=== PATIENT | male | born 1985 | race Caucasian/White ===

== ENCOUNTER 2017-07-23 10:15 | Emergency (ER) | payer OTHER ==
[2017-07-23 10:23] VITALS: BP 148/64
--- NOTE | 2017-07-23 11:03 | UC ---
Respiratory Complaint HPI - HPI Summary HPI Summary: Fever, Cough, Sob body aches for 6 days and not resolving--- is 24 weeks patient is not sure if pertussis is up date and did not get a flu vaccine this year - History of Current Complaint Hx Obtained From: Patient Onset/Duration: Sudden Onset, Lasting Days - 6, Still Present Timing: Constant Severity Initially: Mild Severity Currently: Moderate Pain Intensity: 7 Pain Scale Used: 0-10 Numeric Character: Cough: Nonproductive Aggravating Factors: Recumbent Position Alleviating Factors: Nothing Associated Signs And Symptoms: Positive: Dyspnea, Fever, Chills, Pleuritic Chest Pain, URI, Nasal Congestion <Davina Hernandez - Last Filed: 07/23/17 12:29> <Jen Velazquez - Last Filed: 07/23/17 12:40> - History of Current Complaint Chief Complaint: UCGeneralIllness Stated Complaint: FEVER HEADACHE DIZZY COUGH NAUSEA Time Seen by Provider: 07/23/17 10:48 - Allergies/Home Medications Allergies/Adverse Reactions: Allergies Allergy/AdvReac Type Severity Reaction Status Date / Time Clarithromycin [From Biaxin] Allergy Hives Verified 07/23/17 10:19 PMH/Surg Hx/FS Hx/Imm Hx Previously Healthy: Yes - Surgical History Surgical History: Yes Surgery Procedure, Year, and Place: hand - Family History Known Family History: Positive: None - Social History Occupation: Employed Full-time Lives: With Family Alcohol Use: Daily Substance Use Type: None Smoking Status (MU): Never Smoked Tobacco <Davina Hernandez - Last Filed: 07/23/17 12:29> Review of Systems Constitutional: Fever, Chills, Fatigue Skin: Negative Eyes: Negative ENT: Negative Respiratory: Shortness Of Breath, Cough Cardiovascular: Negative Gastrointestinal: Negative Genitourinary: Negative Motor: Negative Neurovascular: Negative Musculoskeletal: Negative, Arthralgia, Myalgia Neurological: Negative Psychological: Negative Is Patient Immunocompromised?: No All Other Systems Reviewed And Are Negative: Yes <Davina Hernandez - Last Filed: 07/23/17 12:29> Physical Exam Triage Information Reviewed: Yes Appearance: Well-Nourished, Ill-Appearing, Pain Distress Vital Signs: Initial Vital Signs Temp 98.3 F 07/23/17 10:20 Pulse 99 07/23/17 10:20 Resp 18 07/23/17 10:20 BP 148/64 07/23/17 10:20 Pulse Ox 95 07/23/17 10:20 Vital Signs Reviewed: Yes Eye Exam: Normal Eyes: Positive: Conjunctiva Clear ENT Exam: Normal ENT: Positive: Normal ENT inspection, Hearing grossly normal, Pharynx normal, Uvula midline. Negative: Nasal congestion, Nasal drainage, TMs normal, TM bulging, Tonsillar swelling, Tonsillar exudate, Trismus, Hoarse voice, Dental tenderness, Sinus tenderness Dental Exam: Normal Neck exam: Normal Neck: Positive: Supple, Nontender, No Lymphadenopathy Respiratory Exam: Normal Respiratory: Positive: Chest non-tender, Lungs clear, Normal breath sounds, No respiratory distress, No accessory muscle use Cardiovascular Exam: Normal Cardiovascular: Positive: RRR, No Murmur, Pulses Normal, Brisk Capillary Refill Musculoskeletal Exam: Normal Musculoskeletal: Positive: Strength Intact, ROM Intact, No Edema Neurological Exam: Normal Neurological: Positive: Alert, Muscle Tone Normal Psychological Exam: Normal Skin Exam: Normal <Davina Hernandez - Last Filed: 07/23/17 12:29> Vital Signs: Initial Vital Signs Temp 98.3 F 07/23/17 10:20 Pulse 99 07/23/17 10:20 Resp 18 07/23/17 10:20 BP 148/64 07/23/17 10:20 Pulse Ox 95 07/23/17 10:20 <Jen Velazquez - Last Filed: 07/23/17 12:40> UC Diagnostic Evaluation - Laboratory O2 Sat by Pulse Oximetry: 95 - Radiology Xray Interpretation: Positive (See Comments) - large right lower lobe pneumonia Radiology Interpretation Completed By: ED Physician, Radiologist <Davina Hernandez - Last Filed: 07/23/17 12:29> Re-Evaluation - Re-Evaluation First Eval Change: Improved - sats improved increased aeration <Davina Hernandez - Last Filed: 07/23/17 12:29> Respiratory Course/Dx - Course Course Of Treatment: levoquin, albuterol, robitussin with codiene, increase fluids, re check pneumonia and blood pressure with Dr. Meneses in 3 days - Differential Dx/Diagnosis Provider Diagnoses: RLL pneumonia, Elevated Blood Pressure with out DX of HYpeertension <Davina Hernandez - Last Filed: 07/23/17 12:29> Discharge <Davina Hernandez - Last Filed: 07/23/17 12:29> <Jen Velazquez - Last Filed: 07/23/17 12:40> - Discharge Plan Condition: Stable Disposition: HOME Prescriptions: Albuterol HFA INHALER* [Ventolin HFA Inhaler*] 2 puff INH Q4H PRN #1 mdi PRN Reason: Cough/Chest tightness/wheeze Guaifenesin-Codeine [Cheratussin AC 100-10 mg/5Ml] 5 ml PO Q4H PRN #90 ml MDD 30 ml PRN Reason: Cough Levofloxacin TAB* [Levaquin TAB*] 500 mg PO DAILY #7 tab Patient Education Materials: How to Use a Metered-Dose Inhaler and a Spacer (ED ), Pneumonia (ED) Forms: *Work Release Referrals: Leroy Meneses MD [Primary Care Provider] - 3 Days Attestation Statement User Type: Provider - I was available for consult. This patient was seen by the PATRICIA. The patient was not presented to, seen by, or examined by me. -Abad <Jen Velazquez - Last Filed: 07/23/17 12:40>
--- NOTE | 2017-07-23 11:38 | RAD ---
INDICATION: Cough and fever. COMPARISON: There are no prior studies available for comparison. TECHNIQUE: Dual-energy PA and lateral views of the chest were obtained. FINDINGS: Cardiac and mediastinal contours appear normal. There is a large infiltrate present in the right lower lobe. No pleural effusion is seen. IMPRESSION: LARGE RIGHT LOWER LOBE INFILTRATE MOST CONSISTENT WITH PNEUMONIA. RECOMMEND FOLLOW-UP CHEST X-RAYS TO RESOLUTION.
[2017-07-23] MEDS ORDERED: Albuterol/Ipratropium NEB.SOL* Albuterol 2.5 MG/Ipratropium 0.5 MG 3 ML INH ONE (11:41)
== END 2017-07-23 12:30 | disposition home or self-care (01) ==
LOC: UCEAST 10:15
DX: J18.9 Pneumonia, unspecified organism (principal); R03.0 Elevated blood-pressure reading, without diagnosis of hypertension
CPT/HCPCS: 71020; 87502; 99212; G0463

== ENCOUNTER 2017-07-24 07:31 | Inpatient (IN) | payer OTHER ==
[2017-07-24] MEDS ORDERED: NS 0.9% 1000 ML* 1,000 ML IV ONE (07:58)
[2017-07-24] MEDS ORDERED: cefTRIAXone(*) 1 GM in NS 0.9% 50 ML* 50 ML IVPB ONE (08:21)
[2017-07-24] MEDS ORDERED: Azithromycin IV(*) 500 MG in NS 0.9% 250 ML* 250 ML IVPB ONE (08:21)
[2017-07-24] MEDS ORDERED: NS 0.9% 1000 ML*IV.FLUID IV ONE (08:21)
[2017-07-24 08:46] LABS: Hematocrit 40 % (42-52); Hemoglobin 14.8 g/dl (14.0-18.0); Mean Corpuscular HGB Conc 37 g/dl (31-36); Mean Corpuscular Hemoglobin 30 pg (27-31); Mean Corpuscular Volume 81 fL (80-94); Mean Platelet Volume 9 um3 (7.4-10.4); Red Blood Count 4.96 10^6/ul (4.0-5.4); Red Cell Distribution Width 13 % (10.5-15)
[2017-07-24 08:48] LABS: Comments Flag Yes
[2017-07-24] MEDS ORDERED: Acetaminophen TAB* 325 MG ONE (08:48)
[2017-07-24 08:49] LABS: Add Diff/Slide Review? Slide Review Added; White Blood Count 2.6 10^3/ul (3.5-10.8)
--- NOTE | 2017-07-24 08:49 | RAD ---
INDICATION: Cough. COMPARISON: Comparison is made with a prior chest x-ray study from July 23, 2017. TECHNIQUE: AP and lateral views of the chest were obtained. FINDINGS: The heart is within normal limits in size. There is a dense infiltrate present in the right lower lobe which has progressed from the prior study. The left lung remains clear. No pleural effusion is seen. IMPRESSION: RIGHT LOWER LOBAR INFILTRATE DEMONSTRATING INTERVAL PROGRESSION.
[2017-07-24 08:51] LABS: ALT 31 U/L (7-52); AST 91 U/L (13-39); Albumin 3.4 g/dL (3.2-5.2); Alkaline Phosphatase 34 U/L (34-104); BUN/Creatinine Ratio 8.1 (8-20); Blood Urea Nitrogen 9 mg/dL (6-24); CO2 Carbon Dioxide 23 mmol/L (22-32); Calcium 8.1 mg/dL (8.6-10.3); Chloride 83 mmol/L (101-111); Creatine Kinase 1455 U/L (10-223); EGFR African American 98.7 (>60); EGFR Non-African American 76.8 (>60); Globulin 2.3 g/dL (2-4); Glucose 127 mg/dL (70-100); Potassium 3.6 mmol/L (3.5-5.0); Total Protein 5.7 g/dL (6.4-8.9)
[2017-07-24] MEDS: Acetaminophen TAB* 325 MG PO ONE ×2 (08:51→14:47)
[2017-07-24 09:00] LABS: Anion Gap 10 mmol/L (2-11); Sodium 116 mmol/L (133-145)
[2017-07-24 09:05] LABS: Alcohol < 10 mg/dL (<10)
[2017-07-24] MEDS ORDERED: Sodium Chloride 3% HYPERTONIC* 500 ML IVPB ONE (09:09)
[2017-07-24 09:20] LABS: TSH (Thyroid Stimulating Horm) 0.44 mcIU/mL (0.34-5.60)
[2017-07-24] MEDS ORDERED: cefTRIAXone(*) 1 GM ADVAN/BAG ONE (09:47)
--- NOTE | 2017-07-24 11:22 | HP ---
ADMISSION HISTORY AND PHYSICAL: DATE OF ADMISSION: 07/24/17 REASON FOR ADMISSION: Pneumonia with confusion. HISTORY OF PRESENT ILLNESS: The patient is a 31-year-old white male who presents to the emergency department with a 3 to 4 day history of nonproductive cough, watery diarrhea, general malaise, and recent onset of confusion. The patient was seen in a [facility] and was diagnosed with pneumonia and started on oral azithromycin and an albuterol inhaler, without improvement. In the emergency department, a chest x-ray revealed a right lower lobe consolidation, a serum sodium of 116, a CPK of 1455, and a white count of 2.6. EKG revealed a sinus tachycardia with a rate of 112 and biphasic T-waves in leads V3 through V6. The patient is otherwise healthy - he denies any other medical problems and was on no meds other than the ones mentioned. ALLERGIES: There are no known drug allergies. FAMILY HISTORY: The patient does have a family history of cardiac disease ( father is status post coronary bypass surgery, mother is status post mitral valve replacement). SOCIAL HISTORY: The patient is and lives with his , who is . He denies alcohol abuse or smoking. 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 REVIEW OF SYSTEMS: Noncontributory. PHYSICAL EXAMINATION GENERAL: The patient is alert and oriented, although he complains of confusion. He is breathing comfortably. VITAL SIGNS: Temp is 103.5, pulse rate 110, blood pressure 140/86, mean pressure 98, O2 saturation is 94% on nasal O2 at 2 L per minute. HEENT: Pupils are mid position and reactive. There is no facial asymmetry. NECK: Supple. LUNGS: Occasional crackles at the right base. There is no wheezing or rhonchi. HEART: Cardiac exam is without murmurs, rubs, or gallops. ABDOMEN: Soft, nontender and not distended. EXTREMITIES: Warm, but not cyanotic or edematous. ADMISSION LABORATORY DATA: Sodium 116, potassium 3.6, chloride 83, CO2 23, BUN 9, creatinine 1.1, glucose 127, bilirubin 1.1, AST 91, CPK 1455. Lactic acid 1.1. Hemoglobin is 14.8, white count is 2.6, hematocrit is 40, platelets are 93. Serum alcohol is less than 10. Chest x-ray and EKG as mentioned. IMPRESSION: The combination of pneumonia, diarrhea, confusion, rhabdomyolysis and hyponatremia is suggestive of legionella infection, although any infectious organism could produce this clinical scenario. MANAGEMENT PLAN: We will initiate antibiotics with ceftriaxone and azithromycin and send the appropriate blood cultures, in addition to urinary antigens for Legionella and pneumococcus. Will try to get serum sodium up to 120 Alexandr/L (because the confusion could represent symptomatic hyponatremia) and then hydrate the patient to protect the kidneys from myoglobinuric renal injury. Prognosis in this case is guarded. The patient's and parents are present at the bedside and they are aware of the diagnosis and the management plan. CRITICAL CARE TIME: 60 minutes. [id number]/[facility] #: [id number] DERECK
[2017-07-24 11:55] LABS: Hematocrit 37 % (42-52); Hemoglobin 13.5 g/dl (14.0-18.0); Mean Corpuscular HGB Conc 37 g/dl (31-36); Mean Corpuscular Hemoglobin 30 pg (27-31); Mean Corpuscular Volume 83 fL (80-94); Mean Platelet Volume 8 um3 (7.4-10.4); Red Blood Count 4.45 10^6/ul (4.0-5.4); Red Cell Distribution Width 12 % (10.5-15); White Blood Count 2.5 10^3/ul (3.5-10.8)
[2017-07-24 11:57] LABS: Comments Flag Yes
[2017-07-24 12:12] LABS: BUN/Creatinine Ratio 7.1 (8-20); Calcium 6.8 mg/dL (8.6-10.3); EGFR African American 96.7 (>60); EGFR Non-African American 75.2 (>60); Potassium 3.4 mmol/L (3.5-5.0)
[2017-07-24 12:17] LABS: Troponin I 0.04 ng/mL (<0.04)
[2017-07-24 13:38] LABS: Erythrocyte Sed Rate 11 mm/Hr (0-14)
[2017-07-24] MEDS: Enoxaparin(*) 40 MG/0.4 ML SYR SUBCUT SCH (14:48)
[2017-07-24] MEDS: Oseltamivir CAP* 75 MG PO SCH ×2 (14:48→20:06)
[2017-07-24] MEDS: predniSONE TAB* 50 MG PO SCH (14:49)
[2017-07-24 15:54] LABS: Urine Bacteria Absent (Absent); Urine Bilirubin Negative (Negative); Urine Glucose Negative (Negative); Urine Nitrite Negative (Negative)
[2017-07-24 16:30] LABS: Benzodiazepine Urine Screen None Detected (None Detect)
[2017-07-24 18:05] LABS: BUN/Creatinine Ratio 8.8 (8-20); Calcium 7.8 mg/dL (8.6-10.3); EGFR African American 108.9 (>60); EGFR Non-African American 84.6 (>60); Potassium 3.8 mmol/L (3.5-5.0)
[2017-07-24] MEDS: NS 0.9% 1000 ML* 1,000 ML IV SCH ×2 (18:40→23:40)
[2017-07-24] MEDS: Acetaminophen TAB* 325 MG PO PRN (20:06)
--- NOTE | 2017-07-24 23:18 | CONS ---
CONSULTATION REPORT: DATE OF CONSULT: 07/24/17 REQUESTING PHYSICIAN: Dr. Otto. CONSULTING SERVICE: Infectious Disease. REASON FOR CONSULT: Pneumonia. IMPRESSION: 1. Community-acquired pneumonia, progressive right lower lobe infiltrate between 07/23/17 and 07/24/17 with acute hypoxemic respiratory failure. The microbiologic differential includes pneumococcus, haemophilus, given the diarrhea, myalgia, hyponatremia, legionella is indeed a consideration. Influenza PCR was negative. A post influenza bacterial pneumonia also possibility. 2. CLARITHROMYCIN allergy, which caused hives in the past. He is tolerating azithromycin here. 3. Leukopenia and thrombocytopenia, likely both sepsis related. 4. Sepsis present on admission. 5. Encephalopathy due to underlying infection was present on admission. RECOMMENDATIONS: 1. Continue ceftriaxone 1 g a day, azithromycin 500 mg daily given his hypoxemic respiratory failure. We will add prednisone 50 mg by mouth daily 5 days. 2. Order sputum culture. He is occasionally bringing some sputum up though, but not consistently, urine legionella and pneumococcal antigens as well as an HIV antibody. HISTORY OF PRESENT ILLNESS: This is a 31-year-old man otherwise healthy, admitted with cough and shortness of breath. He is well until last Monday, developed fevers, chills, sweats, diffuse body aches, anorexia. A couple of days later, he developed a cough, chest pain with coughing, occasionally productive of sputum. No hemoptysis. He had progression of his symptoms, so he went to Urgent Care yesterday. A chest x-ray showed a right lower lobe infiltrate. He was given a dose of Levaquin, but because of progression of symptoms, came back to the emergency room this morning. He is much more short of breath, occasional cough, still having body aches. Blood test showed white blood cell count of 2.6, CK of 1400, sodium 116. He has had a few days of diarrhea, loose stool 3 to 4 times a day in the setting of not eating very much. He had ceftriaxone and azithromycin in the emergency room yesterday. An influenza PCR was sent, is negative. He has not had an infection requiring hospitalization in the past. He has had some travel to a number of hotels including [place] and [facility] in the last couple of weeks. PAST MEDICAL HISTORY: None. MEDICATIONS: 1. Tylenol. 2. Enoxaparin. 3. Normal saline. 4. Tamiflu 75 mg by mouth twice daily. 5. Ceftriaxone 1 g a day. 6. Azithromycin 500 mg IV daily. ALLERGIES: No known drug allergies. FAMILY HISTORY: No recurrent infection, although father has coronary disease and mother has had a mitral valve replacement. They are both alive and otherwise healthy. SOCIAL HISTORY: Lives in [place] with his . 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 He does travel from time to time including [place], [place], [place] in the last few weeks. No sick contacts, no pets at home. REVIEW OF SYSTEMS: A 14-point review of systems was all negative except as noted above in the history of present illness. PHYSICAL EXAM: Vital Signs: Temperature 38, heart rate 90, respiratory rate 25 , blood pressure 130/85, oxygen saturation 96%, FiO2 of 100 at 40 L per minute, saturation was down to 87% on admission. In general, he is awake, not in distress. Neurologic: He is oriented x3. His answers are somewhat slow and feels that his thinking is a little bit slow. Moves all extremities. HEENT: There is no conjunctival hemorrhage. Oropharynx without lesions. Neck: Supple. Lymph Nodes: There is no cervical, supraclavicular, inguinal, axillary, or epitrochlear lymphadenopathy. Heart: Regular rate and rhythm without murmurs , rubs, or gallops. Lungs: There are decreased breath sounds at the right base with egophony. There is no wheeze or rale. Abdomen: Soft, nontender, nondistended. There are bowel sounds present. Skin: There are no rashes or splinter hemorrhages. Musculoskeletal: There is no spine tenderness to palpation or joint synovitis. LABORATORY DATA: White blood cell count 2.5, hemoglobin 13, platelets 80. Creatinine 1.1. Troponin 0.04. CK 1400. Influenza A and B PCR negative. Please see impressions and recommendation as outlined above, which I have discussed with Dr. Otto. Thank you for asking me to see Mr. Whitaker in consultation. [id number]/[facility] #: [id number] DERECK
[2017-07-24] MEDS: traZODone TAB* 100 MG PO PRN (23:37)
[2017-07-25] MEDS: Acetaminophen TAB* 325 MG PO PRN ×4 (00:04→20:21)
[2017-07-25] MEDS: NS 0.9% 1000 ML* 1,000 ML IV SCH ×4 (04:42→22:05)
[2017-07-25 06:34] LABS: Hematocrit 37 % (42-52); Hemoglobin 13.2 g/dl (14.0-18.0); Mean Corpuscular HGB Conc 36 g/dl (31-36); Mean Corpuscular Hemoglobin 30 pg (27-31); Mean Corpuscular Volume 83 fL (80-94); Mean Platelet Volume 8 um3 (7.4-10.4); Red Blood Count 4.47 10^6/ul (4.0-5.4); Red Cell Distribution Width 12 % (10.5-15)
[2017-07-25 06:35] LABS: Comments Flag Yes
[2017-07-25 06:36] LABS: White Blood Count 2.4 10^3/ul (3.5-10.8)
[2017-07-25 06:49] LABS: Albumin 2.8 g/dL (3.2-5.2); Calcium 7.5 mg/dL (8.6-10.3); EGFR African American 96.7 (>60); EGFR Non-African American 75.2 (>60); Globulin 2.1 g/dL (2-4); Potassium 3.7 mmol/L (3.5-5.0); Total Bilirubin 0.6 mg/dL (0.2-1.0); Total Protein 4.9 g/dL (6.4-8.9)
--- NOTE | 2017-07-25 08:28 | RAD ---
INDICATION: Pneumonia. COMPARISON: Comparison is made with prior chest x-ray study from July 24, 2017. TECHNIQUE: A portable view of the chest was obtained. FINDINGS: The heart is within normal limits in size. There is a right basilar infiltrate and small pleural effusion which has progressed from the prior study. IMPRESSION: RIGHT BASILAR INFILTRATE AND PLEURAL EFFUSION DEMONSTRATING SLIGHT PROGRESSION.
[2017-07-25] MEDS ORDERED: Influenza VAC *QUAD* 2017-18* 0.5 ML SYRINGE IM ONE (09:00)
[2017-07-25] MEDS: Enoxaparin(*) 40 MG/0.4 ML SYR SUBCUT SCH (10:39)
[2017-07-25] MEDS: predniSONE TAB* 50 MG PO SCH (10:39)
[2017-07-25] MEDS: Oseltamivir CAP* 75 MG PO SCH (10:39)
[2017-07-25] MEDS: cefTRIAXone VIAL(*) 1,000 MG in NS 0.9% 50 ML* 50 ML IVPB SCH (11:08)
--- NOTE | 2017-07-25 11:29 | PN ---
Progress Note - Progress Note Date of Service: 07/25/17 Note: CRITICAL CARE MEDICINE Date: 07/25/17 Time: 930 SUBJECTIVE: Patient seen and examined. PHYSICAL EXAM: Vital Signs: Reviewed. Neurologic: communicating HEENT: pupils equal. Sclera anicteric. Trachea midline. Cardiovascular: S1 S2, mildly tachy Respiratory: rapid and challow but not labored at rest, dec on R but no appreciated rales. Abdomen: Soft, nt. No r/g/r. Extremities: Warm. Access: piv LABS: Reviewed. IMAGING: Reviewed. CXR evolution of pna post fluid MEDICATIONS: Reviewed. ASSESSMENT: 31 M Severe sepsis on admission sec to CAP - acting like a post flu strept or staph > legionaella. Septic and metabolic encephalopathy on admission - resolving Acute hypoxic resp failure on admission - improving Thrombcytopenia sec to sepsis consumption Leukopenia sec to sepsis consumption Hypovolemic hyponatremia PLAN: Neurologic: stable. Cardiovascular: still with elevated metabolic demand and adequate inc CO to meet demands. Still utilizing IVF. Respiratory: meron with less O2 but remains with high demand, a large V/Q mismatch for his baseline healthy lungs. Salter today but may still need to utilize HFo2 if work remains high as this is still going to take time towards recovery. d/w pt at length. flutter. oob Gastrointestinal: po diet. Renal/Metabolic: stable but keep NS today. balancing metabolics as hypovolemic hyponatremia correcting Infectious Disease: on C3 and azithro. can dc tamiflu. Hematology: f/u recover phase. lovenox Endocrine: pulse of steroids ok Musculoskeletal: oob, myalgias may linger a little, hence ivf. not rhabdo Psych/Social: pt expresses understanding Supportive and preventative care as ordered. Vaccine: flu received here SUP: po VTE prophylaxis: Lovenox Disposition: ICU, potential floor later or tomorrow Code Status: Full Critical Care Time: 25min Cora Whitaker DO
[2017-07-25] MEDS: Azithromycin IV(*) 500 MG in NS 0.9% 250 ML* 250 ML IVPB SCH (13:16)
--- NOTE | 2017-07-25 14:40 | PN ---
Progress Note - Progress Note Date of Service: 07/25/17 SOAP: Subjective: CC: cough HPI: 31 year old man 1 week fever, myalgia, malaise now cough and dyspnea; RLL infiltrate. Today he and his feel he is think more clearly and making more sense, his energy is better, felt great today until he got up to commode. More dyspnea with that maneuver. Cough which is productive of green sputum, no blood. No fever or chills. Objective: [] Vital Signs Temp 38.2 C 07/25/17 11:39 Pulse 88 07/25/17 13:00 Resp 38 07/25/17 13:00 BP 112/67 07/25/17 13:00 Pulse Ox 91 07/25/17 13:00 Intake & Output 07/24/17 07/25/17 07/25/17 18:59 06:59 18:59 Intake Total 1230 3492 120 Output Total 2400 1450 Balance -1170 2042 120 Weight 189 lb 190 lb 8 oz Intake: IV Fluids 550 3092 NS (0.9%) 3092 Oral 680 400 120 Output: Urine 1850 1250 Liquid Stool 550 200 Other: Date of Last Bowel 07.24.2017 Movement # Bowel Movements 4 Estimated Stool Amount Medium Gen:awake no distress HEENT:no thrush, MMM Neck:supple Heart:RRR no murmur Lungs:Decr BS, tubular breath sounds, egophany R base Abd:+BS NTND soft Skin: no rash MSK: no spine tenderness Laboratory Results - last 24 hr 07/24/17 07/24/17 07/24/17 11:35 11:35 14:17 WBC RBC Hgb Hct MCV MCH MCHC RDW Plt Count MPV Sodium 135 D Potassium 3.4 L Chloride 103 Carbon Dioxide 24 Anion Gap 8 BUN 8 Creatinine 1.13 Est GFR ( Amer) 96.7 Est GFR (Non-Af Amer) 75.2 BUN/Creatinine Ratio 7.1 L Glucose 117 H Calcium 6.8 L Total Bilirubin AST ALT Alkaline Phosphatase Lactate Dehydrogenase 764 H Total Creatine Kinase Troponin I 0.04 H* Total Protein Albumin Globulin Albumin/Globulin Ratio Urine Color Urine Appearance Urine pH Ur Specific [place] Urine Protein Urine Ketones Urine Blood Urine Nitrate Urine Bilirubin Urine Urobilinogen Ur Leukocyte Esterase Urine WBC (Auto) Urine RBC (Auto) Urine Bacteria Urine Glucose Urine Opiates Screen Presumptive positive H Ur Barbiturates Screen None detected Ur Phencyclidine Scrn None detected Ur Amphetamines Screen None detected U Benzodiazepines Scrn None detected Urine Cocaine Screen None detected U Cannabinoids Screen Presumptive positive H HIV 1&2 Antibody Nonreactive 07/24/17 07/24/17 07/24/17 14:17 17:30 21:17 WBC RBC Hgb Hct MCV MCH MCHC RDW Plt Count MPV Sodium 127 L D 128 L Potassium 3.8 Chloride 95 L Carbon Dioxide 26 Anion Gap 6 BUN 9 Creatinine 1.02 Est GFR ( Amer) 108.9 Est GFR (Non-Af Amer) 84.6 BUN/Creatinine Ratio 8.8 Glucose 142 H Calcium 7.8 L Total Bilirubin AST ALT Alkaline Phosphatase Lactate Dehydrogenase Total Creatine Kinase 1628 H Troponin I Total Protein Albumin Globulin Albumin/Globulin Ratio Urine Color Straw Urine Appearance Clear Urine pH 6.0 Ur Specific [place] 1.003 L Urine Protein Negative Urine Ketones Negative Urine Blood 1+ H Urine Nitrate Negative Urine Bilirubin Negative Urine Urobilinogen Negative Ur Leukocyte Esterase Negative Urine WBC (Auto) Trace(0-5/hpf) Urine RBC (Auto) Trace(0-2/hpf) Urine Bacteria Absent Urine Glucose Negative Urine Opiates Screen Ur Barbiturates Screen Ur Phencyclidine Scrn Ur Amphetamines Screen U Benzodiazepines Scrn Urine Cocaine Screen U Cannabinoids Screen HIV 1&2 Antibody 07/25/17 07/25/17 07/25/17 03:17 06:00 06:00 WBC 2.4 L RBC 4.47 Hgb 13.2 L Hct 37 L MCV 83 MCH 30 MCHC 36 RDW 12 Plt Count 96 L MPV 8 Sodium 130 L 131 L Potassium 3.7 Chloride 99 L Carbon Dioxide 26 Anion Gap 6 BUN 9 Creatinine 1.13 Est GFR ( Amer) 96.7 Est GFR (Non-Af Amer) 75.2 BUN/Creatinine Ratio 8.0 Glucose 126 H Calcium 7.5 L Total Bilirubin 0.60 AST 84 H ALT 35 Alkaline Phosphatase 27 L Lactate Dehydrogenase Cancelled Total Creatine Kinase 1410 H Troponin I Total Protein 4.9 L Albumin 2.8 L Globulin 2.1 Albumin/Globulin Ratio 1.3 Urine Color Urine Appearance Urine pH Ur Specific [place] Urine Protein Urine Ketones Urine Blood Urine Nitrate Urine Bilirubin Urine Urobilinogen Ur Leukocyte Esterase Urine WBC (Auto) Urine RBC (Auto) Urine Bacteria Urine Glucose Urine Opiates Screen Ur Barbiturates Screen Ur Phencyclidine Scrn Ur Amphetamines Screen U Benzodiazepines Scrn Urine Cocaine Screen U Cannabinoids Screen HIV 1&2 Antibody Microbiology 07/24/17 08:52 Aerobic Blood Culture - Preliminary Blood Venous No Growth Day 1 Anaerobic Blood Culture - Preliminary No Growth Day 1 07/24/17 09:05 Aerobic Blood Culture - Preliminary Blood Venous No Growth Day 1 Anaerobic Blood Culture - Preliminary No Growth Day 1 07/24/17 14:17 Legionella Urinary Antigen - Final Urine Negative Legionella Streptococcus pneumoniae Ag Screen - Final Negative S. pneumo Antigen 07/24/17 13:05 Gram Stain - Final Sputum Expectorated 07/24/17 11:35 Nasal Screen MRSA (PCR)(EMANUEL) - Final Nasal Mrsa Negative 07/24/17 08:44 Influenza Types A,B Antigen (EMANUEL) - Final Nasal Specimen received for Influenza A/B Molecular testing Assessment: 1. Community acquired pneumonia ?post influenza, Pneumococcus, Legionella, other atypical 2. acute hypoxemic resp failure 3. encephalopathy, present on admission, improving 4. transaminitis 5. diarrhea 6. pancytopenia 7. elevated CK Plan: 1. ceftriaxone, azithro, prednisone day 2 sputum culture pending Discussed with Dr Whitaker
[2017-07-25] MEDS: traZODone TAB* 100 MG PO PRN (22:05)
[2017-07-25] MEDS: Lactobacillus Acidophilu (GG)* 1 CAP CAP PO SCH (22:05)
[2017-07-26] MEDS: Acetaminophen TAB* 325 MG PO PRN ×3 (02:42→10:56)
[2017-07-26] MEDS: NS 0.9% 1000 ML* 1,000 ML IV SCH (02:45)
[2017-07-26 05:50] LABS: Hematocrit 35 % (42-52); Hemoglobin 12.4 g/dl (14.0-18.0); Mean Corpuscular HGB Conc 36 g/dl (31-36); Mean Corpuscular Hemoglobin 30 pg (27-31); Mean Corpuscular Volume 84 fL (80-94); Mean Platelet Volume 8 um3 (7.4-10.4); Red Blood Count 4.12 10^6/ul (4.0-5.4); Red Cell Distribution Width 13 % (10.5-15); White Blood Count 3.5 10^3/ul (3.5-10.8)
[2017-07-26 06:04] LABS: BUN/Creatinine Ratio 9.9 (8-20); Calcium 7.5 mg/dL (8.6-10.3); EGFR African American 124.2 (>60); EGFR Non-African American 96.6 (>60)
[2017-07-26 07:36] LABS: Potassium 3.7 mmol/L (3.5-5.0)
[2017-07-26] MEDS: Azithromycin IV(*) 500 MG in NS 0.9% 250 ML* 250 ML IVPB SCH (08:48)
[2017-07-26] MEDS ORDERED: LORazepam INJ* 2 MG/ML 1 ML VIAL ONE (09:49)
[2017-07-26] MEDS ORDERED: Morphine INJ* 4 MG/ML 1 ML CARPUJECT ONE (09:53)
[2017-07-26] MEDS: LORazepam INJ* 2 MG/ML 1 ML VIAL IV PUSH PRN ×2 (09:57→11:11)
[2017-07-26] MEDS: Morphine INJ* 4 MG/ML 1 ML CARPUJECT IV PRN (09:59)
[2017-07-26] MEDS ORDERED: LORazepam INJ* 2 MG/ML 1 ML VIAL IV PUSH ONE (11:07)
[2017-07-26] MEDS ORDERED: Ondansetron INJ* 2 MG/ML VIAL IV PRN (11:15)
[2017-07-26] MEDS ORDERED: Vancomycin(*) 1,750 MG in NS 0.9% 250 ML* 250 ML IVPB ONE (11:16)
--- NOTE | 2017-07-26 11:21 | PN ---
Progress Note - Progress Note Date of Service: 07/26/17 SOAP: Subjective: CC: cough HPI: 31 year old man 1 week fever, myalgia, malaise now cough and dyspnea; RLL infiltrate. Increased work of breathing this morning, now sedated on Bipap. Fever over night, no diarrhea per RN. Objective: [] Vital Signs Temp 37.4 C 07/26/17 08:00 Pulse 80 07/26/17 08:00 Resp 27 07/26/17 11:11 BP 133/74 07/26/17 07:00 Pulse Ox 95 07/26/17 08:00 Intake & Output 07/25/17 07/26/17 07/26/17 18:59 06:59 18:59 Intake Total 1947 3160 Output Total 1200 Balance 747 3160 Weight 189 lb 13.088 oz Intake: IV Fluids 1212 2860 NS (0.9%) 1212 2860 IVPB 255 NS (0.9%) 255 Oral 480 300 Output: Urine 750 Liquid Stool 450 Other: Estimated Void Medium # Bowel Movements 1 Estimated Stool Amount Medium Gen:sedated, awakens to voice HEENT:bipap mask Neck:supple Heart:RRR no murmur Lungs:Decr BS, tubular breath sounds, egophany R base Abd:+BS NTND soft Skin: no rash MSK: no spine tenderness Laboratory Results - last 24 hr 07/24/17 07/25/17 07/26/17 11:35 06:00 05:29 WBC RBC Hgb Hct MCV MCH MCHC RDW Plt Count MPV Neut % (Auto) Lymph % (Auto) Garden % (Auto) Eos % (Auto) Baso % (Auto) Absolute Neuts (auto) Absolute Lymphs (auto) Absolute Monos (auto) Absolute Eos (auto) Absolute Basos (auto) Absolute Nucleated RBC Nucleated RBC % Sodium 135 D 131 L 130 L Potassium 3.4 L 3.7 3.7 Chloride 103 99 L 104 Carbon Dioxide 24 26 22 Anion Gap 8 6 4 BUN 8 9 9 Creatinine 1.13 1.13 0.91 Est GFR ( Amer) 96.7 96.7 124.2 Est GFR (Non-Af Amer) 75.2 75.2 96.6 BUN/Creatinine Ratio 7.1 L 8.0 9.9 Glucose 117 H 126 H 107 H Calcium 6.8 L 7.5 L 7.5 L Total Bilirubin 0.60 AST 84 H ALT 35 Alkaline Phosphatase 27 L Lactate Dehydrogenase 764 H Cancelled Total Creatine Kinase 1410 H Troponin I 0.04 H* Total Protein 4.9 L Albumin 2.8 L Globulin 2.1 Albumin/Globulin Ratio 1.3 07/26/17 05:29 WBC 3.5 RBC 4.12 Hgb 12.4 L Hct 35 L MCV 84 MCH 30 MCHC 36 RDW 13 Plt Count 105 L MPV 8 Neut % (Auto) 77.1 Lymph % (Auto) 16.6 L Garden % (Auto) 6.0 Eos % (Auto) 0.1 Baso % (Auto) 0.2 Absolute Neuts (auto) 2.7 Absolute Lymphs (auto) 0.6 L Absolute Monos (auto) 0.2 Absolute Eos (auto) 0 Absolute Basos (auto) 0 Absolute Nucleated RBC 0 Nucleated RBC % 0.1 Sodium Potassium Chloride Carbon Dioxide Anion Gap BUN Creatinine Est GFR ( Amer) Est GFR (Non-Af Amer) BUN/Creatinine Ratio Glucose Calcium Total Bilirubin AST ALT Alkaline Phosphatase Lactate Dehydrogenase Total Creatine Kinase Troponin I Total Protein Albumin Globulin Albumin/Globulin Ratio Assessment: 1. Community acquired pneumonia ?post influenza, Pneumococcus, Legionella, other atypical 2. acute hypoxemic resp failure 3. encephalopathy, present on admission, improving 4. transaminitis 5. diarrhea 6. pancytopenia, improving 7. fever Plan: 1. ceftriaxone, azithro, prednisone day 3, will add linezolid for [place] MRSA coverage sputum culture pending Discussed with Dr Whitaker
--- NOTE | 2017-07-26 11:25 | PN ---
Progress Note - Progress Note Date of Service: 07/26/17 Note: CRITICAL CARE MEDICINE Date: 07/26/17 Time: 925 SUBJECTIVE: Patient seen and examined. PHYSICAL EXAM: Vital Signs: Reviewed. Neurologic: communicating HEENT: pupils equal. Sclera anicteric. Trachea midline. Cardiovascular: S1 S2, Hr 80-90 Respiratory: less rapid but still shallow. mild inc sputum. more dense, tubular bs on R base, distant Abdomen: Soft, nt. No r/g/r. Extremities: Warm. Access: piv LABS: Reviewed. IMAGING: Reviewed. MEDICATIONS: Reviewed. ASSESSMENT: 31 M Severe sepsis on admission sec to CAP - acting like a post flu strept or staph Septic and metabolic encephalopathy on admission - resolving Acute hypoxic resp failure on admission - improving Thrombcytopenia sec to sepsis consumption Leukopenia sec to sepsis consumption Hypovolemic hyponatremia PLAN: Neurologic: stable. prns Cardiovascular: CO stable and tolerable. intravasc stable but interstial up. off IVF. Respiratory: needing HFO2 as R base still dense and R upper involvement. Left still seemingly ok, but likely at least microscopic ali. continue protection as able and advance HFO2 to see if his wob can dec. try metaneb. not sure he'll tolerate rescue bipap and at this stage likely too late for rescue bipap and would just need intubation. all explained to pt and his parents. if intubated would utilize bronch; cannot have at this stage without Gastrointestinal: po diet weak. inc po protien suppl. H2 Renal/Metabolic: stable. Na ok. Infectious Disease: on C3 and azithro. Febrile overnight, more likely inflam and ali, but with ck and his dynamics, although not too toxic, but decline some more, would question, c-mrsa and even PVL. d/w ID and we agree to place on linezolid for benefits. Hematology: wbc up some but still low end as well. follow. lovenox Endocrine: pulse of steroids Musculoskeletal: weak and deconditioned Psych/Social: pt and parents expresses understanding Supportive and preventative care as ordered. Vaccine: flu received here SUP: H2 VTE prophylaxis: Lovenox Disposition: ICU Code Status: Full Critical Care Time: 35min Cora Whitaker DO
[2017-07-26] MEDS ORDERED: Famotidine IV* 10 MG/ML 2 ML (20 mg) IV SLOW PU SCH (12:00)
[2017-07-26] MEDS ORDERED: PREMIX* 0 ML with Acetaminophen IV 1GM/100ML * 1,000 MG IVPB ONE ×2 (12:03)
[2017-07-26] MEDS ORDERED: Propofol* 100 ML ONE (12:28)
[2017-07-26] MEDS ORDERED: Acetaminophen IV 1GM/100ML * 1,000 MG/100 ML VIAL IVPB ONE (12:30)
[2017-07-26] MEDS ORDERED: Atropine SYRINGE* 0.1 MG/ML 10 ML SYRINGE (1 MG) ONE (12:45)
[2017-07-26] MEDS ORDERED: NS 0.9% 1000 ML* 1,000 ML IV ONE (12:48)
[2017-07-26] MEDS: Linezolid 600 MG IVPREMIX(*) 600 MG/300 ML BAG IVPB SCH (12:58)
[2017-07-26] MEDS ORDERED: KETAMINE HCL* 50 MG/ML 10 ML VIAL ONE (13:11)
[2017-07-26] MEDS ORDERED: Propofol* 10 MG/ML 20 ML BTL IV PUSH ONE (13:11)
[2017-07-26] MEDS ORDERED: fentaNYL* 50 MCG/ML 5 ML VIAL (250 MCG VIAL) ONE (13:11)
--- NOTE | 2017-07-26 13:33 | PN ---
Progress Note - Progress Note Date of Service: 07/26/17 Note: CRITICAL CARE MEDICINE PROCEDURE NOTE DATE: 07/26/17 TIME: 1315 SERVICE: Critical Care Medicine LOCATION OF PROCEDURE: ICU PROCEDURE: Endotracheal intubation PROCEDURALIST: Dr. Whitaker Consent obtain: Yes, but procedure performed emergently Time out held: Not indicated INDICATION: Acute respiratory failure, pneumonia. PROCEDURE: Oxygenation maintained and vitals monitored. Patient in supine position. Pre-medication with fentanyl 250mcg, ketamine 200mg, and propofol 100mg. Glidescope #3 inserted with Grade 1 view obtained. 8.0 endotracheal tube inserted to 24cm lip. Good chest rise with breath sounds appreciated in bilaterally lung boggs. EtCO2 + color change. Portable chest x-ray pending. Patient otherwise tolerated well. Cora Whitaker DO
--- NOTE | 2017-07-26 13:57 | RAD ---
INDICATION: Intubation, orogastric tube placement. COMPARISON: Comparison is made with a prior chest x-ray study from July 25, 2017. TECHNIQUE: A portable view of the chest was obtained. FINDINGS: The patient is status post intubation. The endotracheal tube projects over the midline. The catheter tip is at the level of the clavicular heads. There is an orogastric tube which demonstrates normal course. The distal portion projects in the left upper quadrant. The heart is within normal limits in size. There are bilateral infiltrates in the mid and lower lung boggs and small to moderate size bilateral pleural effusions right greater than left which appear to have progressed from the prior study. IMPRESSION: 1. STATUS POST INTUBATION AND OROGASTRIC TUBE PLACEMENT. 2. BILATERAL INFILTRATES AND PLEURAL EFFUSIONS DEMONSTRATING INTERVAL PROGRESSION.
[2017-07-26] MEDS ORDERED: Ibuprofen ADULT LIQ* 600 MG/30 ML UDC NG TUBE ONE (15:55)
[2017-07-26] MEDS: Propofol* 100 ML IV SCH ×4 (16:22→23:52)
[2017-07-26] MEDS: Chlorhexidine MOUTHWASH 0.12%* 15 ML UDC TOPICAL SCH ×3 (16:23→21:03)
[2017-07-26] MEDS ORDERED: Ibuprofen TAB* 800 MG PO ONE (17:45)
[2017-07-26] MEDS ORDERED: NS 0.9% 1000 ML* 1,000 ML IV SCH ×2 (17:45→21:45)
[2017-07-26] MEDS: predniSONE TAB* 50 MG PO SCH (21:06)
[2017-07-26] MEDS: Enoxaparin(*) 40 MG/0.4 ML SYR SUBCUT SCH (21:09)
[2017-07-26] MEDS: fentaNYL* 50 MCG/ML 2 ML VIAL (100 MCG VIAL) IV SLOW PU PRN (21:40)
[2017-07-26] MEDS: Lactobacillus Acidophilu (GG)* 1 CAP CAP PO SCH (22:43)
[2017-07-26] MEDS: cefTRIAXone VIAL(*) 1,000 MG in NS 0.9% 50 ML* 50 ML IVPB SCH ×2 (22:44→22:58)
[2017-07-27] MEDS: Linezolid 600 MG IVPREMIX(*) 600 MG/300 ML BAG IVPB SCH ×3 (00:04→23:37)
[2017-07-27] MEDS: Acetaminophen ADULT LIQ* 650 MG/20.3 ML UDC PO PRN ×5 (00:08→19:46)
[2017-07-27] MEDS: Chlorhexidine MOUTHWASH 0.12%* 15 ML UDC TOPICAL SCH ×6 (00:08→21:39)
[2017-07-27] MEDS: Propofol* 100 ML IV SCH ×8 (02:29→22:22)
[2017-07-27] MEDS: fentaNYL* 50 MCG/ML 2 ML VIAL (100 MCG VIAL) IV SLOW PU PRN ×4 (04:11→21:13)
[2017-07-27 04:46] LABS: Hematocrit 37 % (42-52); Hemoglobin 13.3 g/dl (14.0-18.0); Mean Corpuscular HGB Conc 36 g/dl (31-36); Mean Corpuscular Hemoglobin 30 pg (27-31); Mean Corpuscular Volume 85 fL (80-94); Mean Platelet Volume 8 um3 (7.4-10.4); Red Blood Count 4.39 10^6/ul (4.0-5.4); Red Cell Distribution Width 13 % (10.5-15); White Blood Count 4.5 10^3/ul (3.5-10.8)
[2017-07-27 05:00] LABS: BUN/Creatinine Ratio 9.4 (8-20); EGFR African American 116.7 (>60); EGFR Non-African American 90.8 (>60); Magnesium 2.5 mg/dL (1.9-2.7); Phosphorus 4.8 mg/dL (2.5-5.0); Potassium 4.6 mmol/L (3.5-5.0)
--- NOTE | 2017-07-27 07:52 | RAD ---
INDICATION: The endotracheal tube placement. COMPARISON: Comparison is made with a prior chest x-ray study from July 26, 2017 from approximately 8 hours earlier. TECHNIQUE: A portable view of the chest was obtained. FINDINGS: There is an endotracheal tube which projects over the midline. The catheter tip is located just below the level of the clavicular heads. There is a nasogastric tube present. The catheter tip projects over the stomach. The side port is likely within the esophagus. The heart is within normal limits in size. There is a dense infiltrate present in the mid and lower right lung field which is unchanged and a small right pleural effusion. There are nodular infiltrates within the left lung. IMPRESSION: BILATERAL INFILTRATES AND SMALL RIGHT PLEURAL EFFUSION, UNCHANGED. RECOMMEND FOLLOW-UP CHEST X-RAYS TO RESOLUTION.
[2017-07-27] MEDS: predniSONE TAB* 50 MG PO SCH (08:17)
[2017-07-27] MEDS: Azithromycin IV(*) 500 MG in NS 0.9% 250 ML* 250 ML IVPB SCH (08:20)
[2017-07-27] MEDS: Lactobacillus Acidophilu (GG)* 1 CAP CAP PO SCH (08:21)
[2017-07-27] MEDS ORDERED: Famotidine SUSP* 40 MG/5 ML ORAL.SYRIN G TUBE ONE (09:00)
[2017-07-27] MEDS ORDERED: cefTRIAXone VIAL(*) 1,000 MG in D5W 50 ML BAG* 50 ML IVPB SCH (09:30)
--- NOTE | 2017-07-27 10:03 | PN ---
Progress Note - Progress Note Date of Service: 07/27/17 SOAP: Subjective: CC: cough HPI: 31 year old man 1 week fever, myalgia, malaise now cough and dyspnea; RLL infiltrate. Intubated 07/26, minimal ETT secretions and no diarrhea per RN. Objective: [] Vital Signs Temp 37.9 C 07/27/17 09:30 Pulse 89 07/27/17 09:30 Resp 16 07/27/17 08:40 BP 116/72 07/27/17 09:30 Pulse Ox 94 07/27/17 09:30 Intake & Output 07/26/17 07/27/17 07/27/17 18:59 06:59 18:59 Intake Total 259 2598 Output Total 1200 1350 Balance -941 1248 Weight 194 lb 10.691 oz Intake: IV Fluids 2049 NS (0.9%) 204 IVPB 55 NS (0.9%) 55 Medicated IV 259 420 Propofol 259 420 Tube Feeding 74 Output: [place] 1200 1350 Other: # Bowel Movements 1 Estimated Stool Amount Large Gen:sedated, intubated HEENT:no thrush Neck:supple Heart:RRR no murmur Lungs:coarse BS BL decr BS R base though improved Abd:+BS NTND soft Skin: no rash MSK: no spine tenderness Microbiology 07/24/17 09:05 Blood Venous Aerobic Blood Culture - Preliminary No Growth Day 3 07/24/17 09:05 Blood Venous Anaerobic Blood Culture - Preliminary No Growth Day 3 07/24/17 08:52 Blood Venous Aerobic Blood Culture - Preliminary No Growth Day 3 07/24/17 08:52 Blood Venous Anaerobic Blood Culture - Preliminary No Growth Day 3 07/24/17 13:05 Sputum Expectorated Gram Stain - Final 07/24/17 13:05 Sputum Expectorated Sputum Culture - Preliminary Staphylococcus Aureus Normal Janice Assessment: 1. Community acquired pneumonia ?post influenza, Pneumococcus, Legionella, other atypical 2. acute hypoxemic resp failure 3. encephalopathy, present on admission, improving 4. transaminitis 5. diarrhea 6. pancytopenia, improving 7. fever Plan: 1. ceftriaxone, azithro, prednisone day 3, linezolid day 2 sputum culture pending
[2017-07-27] MEDS: Morphine INJ* 4 MG/ML 1 ML CARPUJECT IV PRN ×3 (10:48→18:08)
[2017-07-27] MEDS: Enoxaparin(*) 40 MG/0.4 ML SYR SUBCUT SCH (10:54)
--- NOTE | 2017-07-27 11:29 | PN ---
Progress Note - Progress Note Date of Service: 07/27/17 Note: CRITICAL CARE MEDICINE Date: 07/27/17 Time: 925 SUBJECTIVE: Patient seen and examined. at bedside PHYSICAL EXAM: Vital Signs: Reviewed. Neurologic: sedated withj prop but awakens HEENT: pupils equal. Sclera anicteric. Trachea midline. Cardiovascular: S1 S2, Hr 80-90 Respiratory: better Abdomen: Soft, nt. No r/g/r. Extremities: Warm. Access: piv LABS: Reviewed. IMAGING: Reviewed. MEDICATIONS: Reviewed. ASSESSMENT: 31 M Severe sepsis on admission sec to CAP - acting like a post flu strept or staph Septic and metabolic encephalopathy on admission - resolving Acute hypoxic resp failure on admission - improving Thrombocytopenia sec to sepsis consumption Leukopenia sec to sepsis consumption Hypovolemic hyponatremia and component of SIADH PLAN: Neurologic: stable. keep sedation for RASS -2. prns Cardiovascular: perfusing. vol status up interstially and see if he can mobilize vs lasix later Respiratory: meron APRV with better expansion and return vols. dec Fio2. bronch today to better eval and cx. sbt moreso tomorrow towards liberation then or next day perhaps. Gastrointestinal: tf continued. sup Renal/Metabolic: stable. Na ok. will improve with water mobilization. Infectious Disease: on C3 and azithro, plus linezolid. Appreciate ID follow Hematology: stable. lovenox Endocrine: pulse of steroids Musculoskeletal: weak and deconditioned Psych/Social: and parents expresses understanding Supportive and preventative care as ordered. Vaccine: flu received here SUP: H2 VTE prophylaxis: Lovenox Disposition: ICU Code Status: Full Critical Care Time: 35min Cora Whitaker DO
--- NOTE | 2017-07-27 13:04 | PN ---
Progress Note - Progress Note Date of Service: 07/27/17 Note: CRITICAL CARE MEDICINE PROCEDURE NOTE DATE: 07/27/17 TIME: 1230 SERVICE: Critical Care Medicine LOCATION OF PROCEDURE: ICU PROCEDURE: Bronchoscopy PROCEDURALIST: Dr. Whitaker Consent obtain: Yes Time out held: Yes INDICATION: Acute respiratory failure, Pneumonia ISOLATION: HEPA Filter utilized PROCEDURE: Oxygenation maintained and vitals monitored. Patient in supine position. Pre-medication already on propofol gtt and fentanyl prn. 0ml Lidocaine utilized locally. Bronchoscope inserted via endotracheal tube. Ett ~3.5cm above the yunier. Right mainstem: patent and healthy Right upper lobe: patent Right middle lobe: patent Right lower lobe: more erythema and bogginess; RUL sup segment entered and BAL with instillation of 60mls NS. retracted about 20ml, which turned from strawberrry colored to more bloody during procedure. Friable. 30ml additional saline to RLL with mostly return of just brown saline but no trevor plugs nor pus. Left mainstem: patent. Specimens were sent to lab. Patient otherwise tolerated well. present throughout. Cora Whitaker, DO
[2017-07-27] MEDS ORDERED: Furosemide IV* 10 MG/ML VIAL (40 MG) IV SLOW PU ONE (15:00)
[2017-07-27] MEDS: cefTRIAXone VIAL(*) 1,000 MG in D5W 50 ML BAG* 50 ML IVPB SCH (20:27)
[2017-07-28] MEDS: fentaNYL* 50 MCG/ML 2 ML VIAL (100 MCG VIAL) IV SLOW PU PRN ×6 (00:31→23:38)
[2017-07-28] MEDS: Propofol* 100 ML IV SCH ×8 (00:47→21:57)
[2017-07-28] MEDS: Chlorhexidine MOUTHWASH 0.12%* 15 ML UDC TOPICAL SCH ×6 (01:43→20:29)
[2017-07-28] MEDS: Acetaminophen ADULT LIQ* 650 MG/20.3 ML UDC PO PRN ×4 (02:42→20:29)
[2017-07-28] MEDS: Morphine INJ* 4 MG/ML 1 ML CARPUJECT IV PRN ×4 (03:39→20:43)
[2017-07-28 06:56] LABS: Hematocrit 35 % (42-52); Hemoglobin 12.4 g/dl (14.0-18.0); Mean Corpuscular HGB Conc 35 g/dl (31-36); Mean Corpuscular Hemoglobin 30 pg (27-31); Mean Corpuscular Volume 85 fL (80-94); Mean Platelet Volume 8 um3 (7.4-10.4); Red Blood Count 4.14 10^6/ul (4.0-5.4); Red Cell Distribution Width 13 % (10.5-15); White Blood Count 5.2 10^3/ul (3.5-10.8)
[2017-07-28 07:17] LABS: BUN/Creatinine Ratio 12.4 (8-20); Blood Urea Nitrogen 11 mg/dL (6-24); CO2 Carbon Dioxide 28 mmol/L (22-32); Calcium 7.9 mg/dL (8.6-10.3); Chloride 99 mmol/L (101-111); EGFR African American 127.4 (>60); EGFR Non-African American 99.1 (>60); Glucose 107 mg/dL (70-100); Sodium 134 mmol/L (133-145)
[2017-07-28 07:42] LABS: Anion Gap 7 mmol/L (2-11)
[2017-07-28] MEDS: predniSONE TAB* 50 MG PO SCH (08:09)
[2017-07-28] MEDS: Lactobacillus Acidophilu (GG)* 1 CAP CAP PO SCH (08:09)
[2017-07-28] MEDS: Azithromycin IV(*) 500 MG in NS 0.9% 250 ML* 250 ML IVPB SCH (08:09)
[2017-07-28] MEDS ORDERED: Furosemide IV* 10 MG/ML VIAL (40 MG) IV SLOW PU ONE (10:00)
[2017-07-28] MEDS: Enoxaparin(*) 40 MG/0.4 ML SYR SUBCUT SCH (10:54)
--- NOTE | 2017-07-28 11:09 | PN ---
Progress Note - Progress Note Date of Service: 07/28/17 Note: CRITICAL CARE MEDICINE Date: 07/28/17 Time: 900 SUBJECTIVE: Patient seen and examined. family at bedside PHYSICAL EXAM: Vital Signs: Reviewed. Neurologic: sedated but awakens well and follows commands HEENT: pupils equal. Sclera anicteric. Trachea midline. Cardiovascular: S1 S2, Hr 80-90 Respiratory: better aeration. no rales Abdomen: Soft, nt. No r/g/r. Extremities: Warm. Access: piv LABS: Reviewed. IMAGING: Reviewed. MEDICATIONS: Reviewed. ASSESSMENT: 31 M Severe sepsis on admission sec to CAP - acting like a post flu strept or staph Septic and metabolic encephalopathy on admission - resolving Acute hypoxic resp failure on admission - improving Thrombocytopenia sec to sepsis consumption Leukopenia sec to sepsis consumption Hypovolemic hyponatremia and component of SIADH PLAN: Neurologic: stable. keep sedation for RASS -1. prns Cardiovascular: perfusing. mobilize water with lasix again Respiratory: meron APRV and can drop and stretch. FiO2 40%. would like to see better expectoration. great vol with spon breaths. MV still high however. try metaneb inline today and see if 24h gives any additional benefit waiting for this pna to more liquify. should be ready to liberate tomorrow. Gastrointestinal: tf continued. sup Renal/Metabolic: stable. Na ok. f/u lytes Infectious Disease: on C3 and azithro, linezolid. Appreciate ID follow. bronch gram stain neg; viral pending. Hematology: stable. lovenox; wbc continue to improve Endocrine: pulse of steroids Musculoskeletal: weak and deconditioned Psych/Social: and parents expresses understanding Supportive and preventative care as ordered. Vaccine: flu received here SUP: H2 VTE prophylaxis: Lovenox Disposition: ICU Code Status: Full Critical Care Time: 35min FLyly Whitaker DO
[2017-07-28] MEDS: Linezolid 600 MG IVPREMIX(*) 600 MG/300 ML BAG IVPB SCH ×2 (12:04→23:38)
--- NOTE | 2017-07-28 18:30 | ED ---
Michelle hCavez Thomas, scribed for J Luis Elliott MD on 07/24/17 at 0825 . HPI Febrile Illness - HPI Summary HPI Summary: The patient is a 31 y/o M who presents to the ED with complaints of confusion and anxiety that began this morning. The patient was evaluated at [facility] yesterday, where he was diagnosed with pneumonia and given a prescription for Levaquin and Guaifenesin with Codeine. The patient took codeine this AM at 06:00. In the ED, the patient also complains of chills, myalgia, headache, chest pain, and abd pain. The patient began to feel sick six days ago with a fever and a productive cough. - History of Current Complaint Chief Complaint: EDGeneral Time Seen by Provider: 07/24/17 07:57 Hx Obtained From: Patient Onset/Duration: Started Hours Ago - onset of confusion this AM, Still Present Timing: Constant Current Severity: Moderate Pain Intensity: 0 Pain Scale Used: 0-10 Numeric Aggravating Factors: Other: - Patient took codeine today at 06:00 Alleviating Factors: Nothing Associated Signs and Symptoms: Other: - Chills, myalgia, headache, chest pain, abd pain, confusion, anxiety, fever, cough Related History: Similar Diagnosis as: - Recent diagnosis of pneumonia - Allergy/Home Medications Allergies/Adverse Reactions: Allergies Allergy/AdvReac Type Severity Reaction Status Date / Time Clarithromycin [From Biaxin] Allergy Hives Verified 07/23/17 10:19 PMH/Surg Hx/FS Hx/Imm Hx Previously Healthy: No Endocrine/Hematology History: Denies: Hx Diabetes Cardiovascular History: Denies: Hx Hypertension - Surgical History Surgery Procedure, Year, and Place: hand Infectious Disease History: No Infectious Disease History: Denies: Hx Clostridium Difficile, Hx Hepatitis, Hx Human Immunodeficiency Virus (HIV), Hx of Known/Suspected MRSA, Hx Shingles, Hx Tuberculosis, Hx Known/ Suspected VRE, Hx Known/Suspected VRSA, History Other Infectious Disease, Traveled Outside the in Last 30 Days - Family History Known Family History: Positive: Hypertension, Diabetes - Social History Alcohol Use: Daily Hx Substance Use: No Substance Use Type: Reports: None Hx Tobacco Use: No Smoking Status (MU): Never Smoked Tobacco Review of Systems Positive: Fever, Chills Positive: Chest Pain Positive: Cough Positive: Abdominal Pain Positive: Myalgia Positive: Anxious, Other - Confusion All Other Systems Reviewed And Are Negative: Yes Physical Exam - Summary Physical Exam Summary: VITAL SIGNS: Reviewed. GENERAL: Patient is a well-developed and nourished male who is lying comfortable in the stretcher. Patient is not in any acute respiratory distress. He is febrile. He is somewhat confused. HEAD AND FACE: No signs of trauma. No ecchymosis, hematomas or skull depressions. No sinus tenderness. EYES: PERRLA, EOMI x 2, No injected conjunctiva, no nystagmus. EARS: Hearing grossly intact. Ear canals and tympanic membranes are within normal limits. MOUTH: Oropharynx within normal limits. NECK: Supple, trachea is midline, no adenopathy, no JVD, no carotid bruit, no c- spine tenderness, neck with full ROM. CHEST: Symmetric, no tenderness at palpation LUNGS: There are some crackles in the base of the lungs. No wheezing. CVS: Regular rate and rhythm, S1 and S2 present, no murmurs or gallops appreciated. ABDOMEN: Soft, non-tender. No signs of distention. No rebound no guarding, and no masses palpated. Bowel sounds are normal. EXTREMITIES: FROM in all major joints, no edema, no cyanosis or clubbing. NEURO: Alert and oriented x 3. No acute neurological deficits. Speech is normal and follows commands. SKIN: Dry and warm Triage Information Reviewed: Yes Vital Signs On Initial Exam: Initial Vitals Temp Pulse Resp BP Pulse Ox 101.4 F 107 20 137/82 91 07/24/17 07:32 07/24/17 07:32 07/24/17 07:32 07/24/17 07:32 07/24/17 07:32 Vital Signs Reviewed: Yes - [place] Coma Scale Coma Scale Total: 15 Diagnostics - Vital Signs Vital Signs Temp Pulse Resp BP Pulse Ox 07/24/17 07:32 101.4 F 107 20 137/82 91 - Laboratory Result Diagrams: 07/24/17 08:14 07/24/17 08:14 Lab Statement: Any lab studies that have been ordered have been reviewed, and results considered in the medical decision making process. - Radiology CXR Xray Interpretation: Positive (See Comments) - RIGHT LOWER LOBAR INFILTRATE DEMONSTRATING INTERVAL PROGRESSION. ED physician has reviewed this report and agrees. Radiology Interpretation Completed By: Radiologist - EKG 08:09 Cardiac Rate: Tachycardia EKG Rhythm: Sinus Tachycardia EKG Interpretation: [address] elevations. Normal axis. Course/Dx - Course Assessment/Plan: The patient is a 31 y/o M who presents to the ED with complaints of confusion and anxiety that began this morning. The patient was evaluated at [facility] yesterday, where he was diagnosed with pneumonia and given a prescription for Levaquin and Guaifenesin with Codeine. The patient took codeine this AM at 06:00. In the ED, the patient also complains of chills, myalgia, headache, chest pain, and abd pain. The patient began to feel sick six days ago with a fever and a productive cough. Test results show WBC of 2.6, platelets 93, Hematocrit 40, sodium 116, glucose 127, CPK 1455. CXR shows RIGHT LOWER LOBAR INFILTRATE DEMONSTRATING INTERVAL PROGRESSION. In the ED course, initially the patient was started on sepsis protocol. However, we had to stop fluids because the patient was hyponatremic. If we gave the patient fluids, this would decrease the sodium even further and the patient would be more symptomatic. The patient was given Rocephin and Azithromycin IV. He was given Tylenol for the fever. I discussed the case with Dr. Otto, ICU, who recommends that we start hypertonic saline at 3% at 42 ccs per hour. The patient will be accepted by Dr. Otto to the ICU. At this point, the patient is still confused although he is hemodynamically stable. - Diagnoses Provider Diagnoses: Pneumonia, Hyponatremia secondary to SIADH - Provider Notifications Discussed Care Of Patient With: Mitch Otto Time Discussed With Above Provider: 09:09 Instructed by Provider To: Other - I consulted with Dr. Otto, second operator, who made recommendations regarding patient care. He will admit the patient. - Critical Care Time Critical Care Time: 75-104 min Discharge - Discharge Plan Condition: Fair Disposition: ADMITTED TO [facility] Discharge Disposition Comment: by Dr. Otto The documentation as recorded by the Michelle alston Thomas accurately reflects the service I personally performed and the decisions made by me, J Luis Elliott MD.
[2017-07-28] MEDS: cefTRIAXone VIAL(*) 1,000 MG in D5W 50 ML BAG* 50 ML IVPB SCH (21:14)
[2017-07-28] MEDS ORDERED: Potassium Chloride LIQUID* 20 MEQ PACKET G TUBE ONE (21:30)
[2017-07-29] MEDS: Propofol* 100 ML IV SCH ×5 (00:26→21:54)
[2017-07-29] MEDS: Morphine INJ* 4 MG/ML 1 ML CARPUJECT IV PRN (01:34)
[2017-07-29] MEDS: Chlorhexidine MOUTHWASH 0.12%* 15 ML UDC TOPICAL SCH ×5 (01:34→19:35)
[2017-07-29] MEDS: fentaNYL* 50 MCG/ML 2 ML VIAL (100 MCG VIAL) IV SLOW PU PRN ×3 (04:29→14:56)
[2017-07-29] MEDS: Acetaminophen ADULT LIQ* 650 MG/20.3 ML UDC PO PRN ×3 (05:27→19:35)
[2017-07-29] MEDS: Albuterol/Ipratropium NEB.SOL* Albuterol 2.5 MG/Ipratropium 0.5 MG 3 ML INH PRN ×2 (08:07→11:08)
[2017-07-29] MEDS: Azithromycin IV(*) 500 MG in NS 0.9% 250 ML* 250 ML IVPB SCH (08:59)
[2017-07-29] MEDS: Enoxaparin(*) 40 MG/0.4 ML SYR SUBCUT SCH (08:59)
[2017-07-29] MEDS: Lactobacillus Acidophilu (GG)* 1 CAP CAP PO SCH (08:59)
--- NOTE | 2017-07-29 10:04 | PN ---
Progress Note - Progress Note Date of Service: 07/29/17 Note: CRITICAL CARE MEDICINE Date: 07/29/17 Time: 910 SUBJECTIVE: Patient seen and examined. family at bedside PHYSICAL EXAM: Vital Signs: Reviewed. Neurologic: sedated but awaken well and follows commands HEENT: pupils equal. Sclera anicteric. Trachea midline. Cardiovascular: S1 S2, Hr 80-90 Respiratory: better aeration again. no rales appreciable but still dec in R bases compared to left. Abdomen: Soft, nt. No r/g/r. Extremities: Warm. Access: piv LABS: Reviewed. IMAGING: Reviewed. MEDICATIONS: Reviewed. ASSESSMENT: 31 M Severe sepsis on admission sec to CAP - acting like a post flu strept or staph Septic and metabolic encephalopathy on admission - resolving Acute hypoxic resp failure on admission - improving Thrombocytopenia sec to sepsis consumption Leukopenia sec to sepsis consumption Hypovolemic hyponatremia and component of SIADH PLAN: Neurologic: stable. hold sedatives. Cardiovascular: perfusing. mobilized water well. can allow auto today. Respiratory: high mv given large vol on vent. liberate to O2. may need HFO2 if still lingering otherwise should not need ppv other then will use metaneb post liberation today. Gastrointestinal: po later. sup Renal/Metabolic: stable. dc tyler. Na ok. f/u lytes Infectious Disease: C3, azithro, linezolid. ID following. bronch gram stain neg ; viral pending. Hematology: stable. lovenox Endocrine: pulse of steroids continued Musculoskeletal: weak and deconditioned; oob soon Psych/Social: and parents expresses understanding Supportive and preventative care as ordered. Disposition: ICU Code Status: Full Critical Care Time: 35min Cora Whitaker DO
[2017-07-29] MEDS ORDERED: Piperacillin/Tazobac ADVAN(*) 3.375 GM in D5W 100 ML BAG* 100 ML IVPB ONE (13:04)
[2017-07-29] MEDS ORDERED: Propofol* 100 ML ONE ×2 (13:35→14:29)
--- NOTE | 2017-07-29 13:36 | RAD ---
INDICATION: Weakness and shortness of breath COMPARISON: Most recent comparison chest x-rays dated July 26, 2017. TECHNIQUE: Single AP portable view of the chest was obtained. FINDINGS: Image quality is compromised due to the relative inferiority of a portable chest x-ray. The heart and mediastinum exhibit normal size and contour. There is multifocal infiltrate overlying the right greater than left lower lungs. Visualized bones are normal for the patient's age. IMPRESSION: Chest x-ray appearance is most consistent with worsening, right more severe in left, bibasilar pneumonia relative to the July 26, 2017 chest x-ray. Alternatively this appearance could be secondary to pulmonary edema, pneumonitis or ARDS.
[2017-07-29] MEDS ORDERED: fentaNYL* 50 MCG/ML 5 ML VIAL (250 MCG VIAL) ONE (13:40)
[2017-07-29] MEDS ORDERED: Propofol* 10 MG/ML 20 ML BTL IV PUSH ONE (13:42)
[2017-07-29] MEDS ORDERED: Lidocaine 2% PF * 5 ML VIAL ONE (13:52)
[2017-07-29] MEDS ORDERED: KETAMINE HCL* 50 MG/ML 10 ML VIAL ONE (14:00)
[2017-07-29] MEDS ORDERED: Zosyn per Pharmacy* NOTE FOLLOW UP SCH (14:00)
[2017-07-29] MEDS ORDERED: Iohexol 300* (CONTRAST) 10 ML SDV IV ONE (14:36)
[2017-07-29] MEDS ORDERED: Propofol* 100 ML IV SCH (15:00)
[2017-07-29] MEDS ORDERED: Dexmedetomidine* 400 MCG in NS 0.9% 100 ML* 96 ML IVPB SCH ×2 (15:00→16:00)
--- NOTE | 2017-07-29 15:28 | PN ---
Progress Note - Progress Note Date of Service: 07/29/17 Note: CRITICAL CARE MEDICINE PROCEDURE NOTE DATE: 07/29/17 TIME: 1325 SERVICE: Critical Care Medicine LOCATION OF PROCEDURE: ICU PROCEDURE: Endotracheal intubation PROCEDURALIST: Dr. Whitaker Consent obtain: Yes, but procedure performed emergently Time out held: Not indicated INDICATION: Acute respiratory failure, pneumonia. PROCEDURE: Oxygenation maintained and vitals monitored. Patient in supine position. Pre-medication with fentanyl 250mcg, ketamine 100mg, and propofol 100mg. Glidescope #3 inserted with Grade 1 view obtained. 8.0 endotracheal tube inserted to 24cm lip. Good chest rise with breath sounds appreciated in bilaterally lung boggs. EtCO2 + color change. Portable chest x-ray pending. Patient otherwise tolerated well. Family updated. Cora Whitaker, DO
[2017-07-29] MEDS: Linezolid 600 MG IVPREMIX(*) 600 MG/300 ML BAG IVPB SCH ×2 (15:30→23:52)
--- NOTE | 2017-07-29 15:32 | PN ---
Progress Note - Progress Note Date of Service: 07/29/17 Note: CRITICAL CARE MEDICINE PROCEDURE NOTE DATE: 07/29/17 TIME: 1350 SERVICE: Critical Care Medicine LOCATION OF PROCEDURE: ICU PROCEDURE: Bronchoscopy PROCEDURALIST: Dr. Whitaker Consent obtain: Yes Time out held: Yes INDICATION: Acute respiratory failure, Pneumonia ISOLATION: not utilized as used emergently during airway control intubation. PROCEDURE: Oxygenation maintained and vitals monitored. Patient in supine position. Pre-medication already post intubation. 0ml Lidocaine utilized locally. Bronchoscope inserted via endotracheal tube. Ett ~3.5cm above the yunier. Right mainstem: patent Right upper lobe: patent Right middle lobe: patent Right lower lobe: not much erythema and less bogginess but barbour secretions. No overt plugs or thick mucus encountered. Instillation of NS with barbour returned. BAL with instillation of 60mls NS to RLL ant and retracted about 15ml , strawberry blood colored. No real increase in amount of blood during instillation. Left mainstem: patent. Specimens were sent to lab. Patient otherwise tolerated well. Family present and updated. Cora Whitaker DO
--- NOTE | 2017-07-29 15:38 | PN ---
Progress Note - Progress Note Date of Service: 07/29/17 Note: CRITICAL CARE MEDICINE Date: 07/29/17 Time: 1500 Pt somewhat equilibrating post extubation but required HFO2 due to rapid breathing. Able to take mechanics for larger vol with cough, and sputum production increased, but unable to maintain tv up due to atelectasis and need for ppv. Explained to pt and family, need to resume invasive ppv as he needs to maintain better function and clearance of his exudative pna yet to allow enough transudative evolution and clearance. Will re-intubate, aprv, bronch, and CT scan just in case there is a need for further dx or tx. Effusion looks bigger off ppv but doubt needing tap. ct may help guide. change from c3 to zosyn given his low grade temps still and perhaps further anaerobic coverage. As explained to family, we were attempting to liberate him and push him forward early in his course and yet just not there. Not a step back, just not a step forward. Continued care. They expressed understanding. Disposition: ICU Code Status: Full Critical Care Time: 40min additional excl procedures. Cora Whitaker, DO
--- NOTE | 2017-07-29 15:41 | RAD ---
INDICATION: Post intubation and OGT COMPARISON: Same day chest x-ray acquired at 1258 hours TECHNIQUE: Single AP portable view of the chest was obtained at 1445 hours. FINDINGS: Image quality is compromised due to the relative inferiority of a portable chest x-ray. There is been interval placement of a endotracheal tube with the tip at the level of the clavicular heads measuring 6.5 cm above the yunier. The recently placed gastric tube is overlying the gastric fundus. Again seen are patchy infiltrates, right lower lung worse than left. There appears to be subcutaneous gas overlying the right clavicle that was probably present on the previous chest x-ray. IMPRESSION: 1. Interval placement of endotracheal tube and orogastric tube as described above. The endotracheal tube is flushed with the level of the right clavicular head. 2. Similar appearance of multifocal infiltrates as well as apparent subcutaneous gas overlying the right clavicle.
[2017-07-29] MEDS: predniSONE TAB* 20 MG G TUBE SCH (17:16)
--- NOTE | 2017-07-29 17:25 | RAD ---
INDICATION: Worsening pneumonia and effusion COMPARISON: Multiple same day chest x-ray was TECHNIQUE: Axial source images of the chest were acquired after the injection of 80 mL Omnipaque 300 intravenous contrast from just above the lung apices to the base of the diaphragm. Coronal and sagittal reconstructed images were acquired. FINDINGS: The endotracheal tube is positioned in the trachea approximately 5.2 cm above the yunier. The gastric tube terminates in the upper portion of the gastric fundus. There is subcutaneous gas within the soft tissues of the neck and supraclavicular chest, worse on the right than the left. Gas tracks around the upper portions of the trachea esophagus. There is lobar consolidation of most of the right lower lobe with air bronchograms. There are multifocal round densities, ranging from subcentimeter groundglass nodules 2 a 2.5 cm nodule in the left lower lobe. There is a small right pleural effusion. There is a trace left pleural effusion. The heart is normal in size. There is no evidence of pericardial effusion. There is no evidence of aortic aneurysm or dissection. There is no mediastinal, hilar, or axillary lymphadenopathy. The osseous structures appear normal. Limited views of the upper abdomen show no abnormalities. IMPRESSION: 1. Near complete lobar consolidation of the right lower lobe with air bronchograms with diffuse round densities throughout the remaining for lobes. Pneumonia and/or septic emboli are the favored diagnoses considering the patient's age. 2. There is a small right and trace left pleural effusion. #3 subcutaneous gas overlying the neck and upper chest. Please correlate to trauma to the trachea or potential esophageal injury.
[2017-07-29] MEDS: Piperacillin/Tazobac ADVAN(*) 3.375 GM in D5W 100 ML BAG* 100 ML IVPB SCH (19:35)
[2017-07-29] MEDS: Dexmedetomidine* 400 MCG in NS 0.9% 100 ML* 96 ML IVPB SCH (19:41)
[2017-07-30] MEDS: Propofol* 100 ML IV SCH ×9 (00:18→20:51)
[2017-07-30] MEDS: Chlorhexidine MOUTHWASH 0.12%* 15 ML UDC TOPICAL SCH ×6 (00:19→17:44)
[2017-07-30] MEDS ORDERED: D5W 100 ML BAG* 100 ML ONE (02:27)
[2017-07-30] MEDS: Piperacillin/Tazobac ADVAN(*) 3.375 GM in D5W 100 ML BAG* 100 ML IVPB SCH ×3 (02:28→17:47)
[2017-07-30] MEDS: Albuterol/Ipratropium NEB.SOL* Albuterol 2.5 MG/Ipratropium 0.5 MG 3 ML INH PRN (02:57)
[2017-07-30] MEDS: Morphine INJ* 4 MG/ML 1 ML CARPUJECT IV PRN (03:04)
[2017-07-30] MEDS: Dexmedetomidine* 400 MCG in NS 0.9% 100 ML* 96 ML IVPB SCH ×3 (03:10→17:46)
[2017-07-30] MEDS: fentaNYL* 50 MCG/ML 2 ML VIAL (100 MCG VIAL) IV SLOW PU PRN ×3 (05:07→12:47)
[2017-07-30 06:58] LABS: Hematocrit 34 % (42-52); Hemoglobin 11.9 g/dl (14.0-18.0); Mean Corpuscular HGB Conc 35 g/dl (31-36); Mean Corpuscular Hemoglobin 30 pg (27-31); Mean Corpuscular Volume 86 fL (80-94); Mean Platelet Volume 8 um3 (7.4-10.4); Red Blood Count 3.98 10^6/ul (4.0-5.4); Red Cell Distribution Width 13 % (10.5-15); White Blood Count 3.8 10^3/ul (3.5-10.8)
[2017-07-30 07:05] LABS: Add Diff/Slide Review? Slide Review Added; Comments Flag Yes
[2017-07-30 07:09] LABS: Albumin 2.9 g/dL (3.2-5.2); BUN/Creatinine Ratio 24.2 (8-20); Calcium 8.7 mg/dL (8.6-10.3); Direct Bilirubin 0.4 mg/dL (0.03-0.18); EGFR African American 179.9 (>60); EGFR Non-African American 139.9 (>60); Globulin 3.3 g/dL (2-4); Indirect Bilirubin 0.5 mg/dL (0.3-1.0); Magnesium 2.8 mg/dL (1.9-2.7); Potassium 4.4 mmol/L (3.5-5.0); Total Bilirubin 0.9 mg/dL (0.2-1.0); Total Protein 6.2 g/dL (6.4-8.9)
[2017-07-30 07:38] LABS: Immature Granulocytes 1 % (0-9); Myelocytes % 1 % (0-1); Neutrophil % 81 % (38-83); RBC Morphology Normal (Normal); Reactive Lymph % 1 % (0-6)
--- NOTE | 2017-07-30 08:01 | RAD ---
INDICATION: Respiratory failure secondary to pneumonia. COMPARISON: Most recent comparison chest x-ray is dated July 29, 2017 TECHNIQUE: Single AP portable view of the chest was obtained. FINDINGS: Image quality is compromised due to the relative inferiority of a portable chest x-ray. The endotracheal and gastric tubes are appropriately positioned. Again seen are bibasilar patchy densities with a larger consolidation overlying the right lower lobe with air bronchograms. Subcutaneous gas overlying the supraclavicular soft tissues and neck are unchanged. Visualized bones are normal for the patient's age. IMPRESSION: The degree of aeration compared to the most recent chest x-ray has not changed significantly as described above.
[2017-07-30] MEDS: predniSONE TAB* 20 MG G TUBE SCH (09:44)
[2017-07-30] MEDS: Enoxaparin(*) 40 MG/0.4 ML SYR SUBCUT SCH (09:44)
[2017-07-30] MEDS: Azithromycin IV(*) 500 MG in NS 0.9% 250 ML* 250 ML IVPB SCH (09:44)
[2017-07-30] MEDS: Lactobacillus Acidophilu (GG)* 1 CAP CAP PO SCH (09:44)
--- NOTE | 2017-07-30 09:49 | PN ---
Subjective - Subjective Reason for Note: Consultation Note History: I am the primary care provider for Maurice Whitaker and have come to see him at the request of the family and Dr. Whitaker. I have obtained his history from the EMR and from Dr. Whitaker - he is intubated. He developed a community acquired pneumonia - the nature of which remains unclear. He developed respiratory failure, encephalopathy and hepatitis. He has been intubated and has had one trial of weaning which was not successful. According to the history he has had some travel and has stayed in some [facility] hotels recently. He has no prior comorbidites and has been healthy - not a frequent visitor to my medical office - he had an episode of URI 08/12/2016 treated without antibacterials. He has received as an outpatient some levofloxacin. As an inpatient azithromycin, ceftriaxone, zosyn (v. briefly) and linezolid. He was started on prednisone early. He has had consultations from Dr. Powers I have reviewed. Serology, microbiology are negative. I note a trace of opioids and cannabinoids on presenting urine toxin screen. 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 Current Medications: Current Medications Acetaminophen (Tylenol Adult Liq*) 650 mg PO Q4H PRN PRN Reason: FEVER Last Admin: 07/29/17 19:35 Dose: 650 mg Albuterol/Ipratropium (Duoneb (Albuterol 2.5 Mg/Ipratropium 0.5 Mg)) 1 neb INH Q4H PRN PRN Reason: SOB/WHEEZING Last Admin: 07/30/17 02:57 Dose: 1 neb Chlorhexidine Gluconate (Peridex Mouth Wash 0.12%*) 15 ml TOPICAL Q4H AVINASH Last Admin: 07/30/17 04:56 Dose: 15 ml Enoxaparin Sodium (Lovenox(*)) 40 mg SUBCUT Q24H AVINASH Last Admin: 07/29/17 08:59 Dose: 40 mg Fentanyl Citrate (Fentanyl*) 50 mcg IV SLOW PU Q4H PRN PRN Reason: PAIN Last Admin: 07/30/17 05:07 Dose: 50 mcg Azithromycin 500 mg/ Sodium (Chloride) 250 mls @ 250 mls/hr IVPB Q24H AVINASH Last Admin: 07/29/17 08:59 Dose: 250 mls/hr Linezolid (Zyvox 600 Mg Ivpremix(*)) 600 mg in 300 mls @ 300 mls/hr IVPB Q12H AVINASH Last Admin: 07/29/17 23:52 Dose: 300 mls/hr Piperacillin Sod/Tazobactam (Sod 3.375 gm/ Dextrose) 100 mls @ 25 mls/hr IVPB Q8H AVINASH Last Admin: 07/30/17 02:28 Dose: 25 mls/hr Dexmedetomidine HCl 400 mcg/ (Sodium Chloride) 100 mls @ 8.7 mls/hr IVPB Q11H AVINASH PRN Reason: 0.4 MCG/KG/HR Last Admin: 07/30/17 03:10 Dose: 8.7 mls/hr Propofol (Diprivan*) 100 mls @ 31.32 mls/hr IV .(Initial Rate) AVINASH; 60 MCG/KG/ MIN PRN Reason: Protocol Last Admin: 07/30/17 07:25 Dose: 31.32 mls/hr Lactobacillus Rhamnosus (Culturelle*) 1 cap PO DAILY [facility] Last Admin: 07/29/17 08:59 Dose: 1 cap Lorazepam (Ativan Inj*) 1 mg IV PUSH Q4H PRN PRN Reason: ANXIETY Last Admin: 07/26/17 11:11 Dose: 1 mg Morphine Sulfate (Morphine Inj (Syringe)*) 4 mg IV Q2H PRN PRN Reason: PAIN Last Admin: 07/30/17 03:04 Dose: 4 mg Ondansetron HCl (Zofran Inj*) 4 mg IV Q4H PRN PRN Reason: NAUSEA Pharmacy Consult (Zosyn Per Pharmacy*) 1 note FOLLOW UP .ZOSYN PER PHARMACY [facility] Prednisone (Deltasone Tab*) 60 mg G TUBE DAILY [facility] Last Admin: 07/29/17 17:16 Dose: 60 mg Trazodone HCl (Desyrel Tab*) 100 mg PO BEDTIME PRN PRN Reason: SLEEP Last Admin: 07/25/17 22:05 Dose: 100 mg Home Medications: Home Medications Medication Instructions Recorded Confirmed Type Albuterol HFA INHALER* [Ventolin 2 puff INH Q4H PRN #1 mdi 07/23/17 07/24/17 Rx HFA Inhaler*] Guaifenesin-Codeine [Cheratussin 5 ml PO Q4H PRN #90 ml MDD 30 ml 07/23/1707/24 Rx AC 100-10 mg/5Ml] Levofloxacin TAB* [Levaquin TAB*] 500 mg PO DAILY #7 tab 07/23/17 07/24/17 Rx Allergies: Allergies Allergy/AdvReac Type Severity Reaction Status Date / Time Clarithromycin [From Biaxin] Allergy Hives Verified 07/23/17 10:19 Objective - Vital Signs Vital Signs: Vital Signs 07/29/17 07/29/17 07/29/17 10:00 10:27 11:00 Temperature Pulse Rate 93 86 Respiratory 29 37 Rate Blood Pressure 143/98 151/96 (mmHg) O2 Sat by Pulse 95 94 88 Oximetry 07/29/17 07/29/17 07/29/17 11:39 12:00 12:43 Temperature Pulse Rate 89 88 83 Respiratory 34 25 34 Rate Blood Pressure 163/102 149/94 (mmHg) O2 Sat by Pulse 95 97 96 Oximetry 07/29/17 07/29/17 07/29/17 13:00 14:00 14:10 Temperature Pulse Rate 83 93 Respiratory 47 35 Rate Blood Pressure 156/94 109/70 (mmHg) O2 Sat by Pulse 93 97 Oximetry 07/29/17 07/29/17 07/29/17 14:13 14:15 14:18 Temperature Pulse Rate 92 93 94 Respiratory Rate Blood Pressure 114/69 128/66 97/71 (mmHg) O2 Sat by Pulse 98 95 92 Oximetry 07/29/17 07/29/17 07/29/17 14:20 14:23 14:25 Temperature Pulse Rate 94 94 96 Respiratory Rate Blood Pressure 117/75 114/71 117/67 (mmHg) O2 Sat by Pulse 92 92 92 Oximetry 07/29/17 07/29/17 07/29/17 14:28 14:30 14:33 Temperature Pulse Rate 92 94 94 Respiratory Rate Blood Pressure 113/71 113/71 115/70 (mmHg) O2 Sat by Pulse 90 91 92 Oximetry 07/29/17 07/29/17 07/29/17 14:35 14:38 14:40 Temperature 102.7 F 102.9 F Pulse Rate 94 93 94 Respiratory Rate Blood Pressure 117/70 117/69 119/71 (mmHg) O2 Sat by Pulse 92 92 93 Oximetry 07/29/17 07/29/17 07/29/17 14:43 14:45 14:48 Temperature 102.9 F 102.9 F 102.9 F Pulse Rate 95 97 97 Respiratory Rate Blood Pressure 119/71 142/88 126/84 (mmHg) O2 Sat by Pulse 93 94 94 Oximetry 07/29/17 07/29/17 07/29/17 14:51 14:53 14:55 Temperature 102.9 F 102.9 F 102.9 F Pulse Rate 96 102 100 Respiratory Rate Blood Pressure 126/82 113/78 131/81 (mmHg) O2 Sat by Pulse 94 93 94 Oximetry 07/29/17 07/29/17 07/29/17 14:56 14:58 15:00 Temperature 102.9 F 102.9 F Pulse Rate 99 98 Respiratory 30 31 Rate Blood Pressure 118/78 120/74 (mmHg) O2 Sat by Pulse 94 92 Oximetry 07/29/17 07/29/17 07/29/17 15:03 15:05 15:08 Temperature 102.7 F 102.9 F 102.9 F Pulse Rate 97 95 93 Respiratory Rate Blood Pressure 114/73 106/69 113/72 (mmHg) O2 Sat by Pulse 92 92 92 Oximetry 07/29/17 07/29/17 07/29/17 15:10 15:13 15:15 Temperature 102.9 F 102.9 F 102.9 F Pulse Rate 94 92 93 Respiratory Rate Blood Pressure 120/67 116/66 111/70 (mmHg) O2 Sat by Pulse 93 92 92 Oximetry 07/29/17 07/29/17 07/29/17 15:18 15:20 15:23 Temperature 102.7 F 102.7 F 102.7 F Pulse Rate 94 95 94 Respiratory Rate Blood Pressure 108/65 109/66 110/68 (mmHg) O2 Sat by Pulse 92 92 92 Oximetry 07/29/17 07/29/17 07/29/17 15:25 15:28 15:30 Temperature 102.7 F 102.7 F 102.7 F Pulse Rate 94 95 94 Respiratory Rate Blood Pressure 117/68 111/69 96/66 (mmHg) O2 Sat by Pulse 93 92 92 Oximetry 07/29/17 07/29/17 07/29/17 15:33 15:35 15:38 Temperature 102.7 F 102.9 F 102.7 F Pulse Rate 91 95 92 Respiratory Rate Blood Pressure 108/67 105/65 109/66 (mmHg) O2 Sat by Pulse 93 93 93 Oximetry 07/29/17 07/29/17 07/29/17 15:40 15:43 15:45 Temperature 102.7 F 102.7 F 102.7 F Pulse Rate 94 93 93 Respiratory Rate Blood Pressure 103/67 101/62 105/65 (mmHg) O2 Sat by Pulse 93 93 93 Oximetry 07/29/17 07/29/17 07/29/17 15:48 15:50 15:53 Temperature 102.7 F 102.7 F 102.7 F Pulse Rate 92 94 93 Respiratory Rate Blood Pressure 107/64 101/64 104/66 (mmHg) O2 Sat by Pulse 93 93 93 Oximetry 07/29/17 07/29/17 07/29/17 15:55 15:58 16:00 Temperature 102.7 F 102.7 F 102.7 F Pulse Rate 93 92 89 Respiratory 32 Rate Blood Pressure 107/65 107/64 106/64 (mmHg) O2 Sat by Pulse 93 93 94 Oximetry 07/29/17 07/29/17 07/29/17 16:03 16:47 17:00 Temperature 102.7 F 101.8 F 102.0 F Pulse Rate 88 94 96 Respiratory 30 Rate Blood Pressure 109/71 108/70 (mmHg) O2 Sat by Pulse 95 94 95 Oximetry 07/29/17 07/29/17 07/29/17 17:01 17:15 17:30 Temperature 101.8 F 102.0 F 102.0 F Pulse Rate 109 90 86 Respiratory Rate Blood Pressure 122/73 113/67 102/70 (mmHg) O2 Sat by Pulse 98 95 95 Oximetry 07/29/17 07/29/17 07/29/17 17:45 18:00 18:15 Temperature 102.0 F 102.0 F 102.0 F Pulse Rate 86 84 80 Respiratory 30 Rate Blood Pressure 105/65 102/70 99/73 (mmHg) O2 Sat by Pulse 95 94 94 Oximetry 07/29/17 07/29/17 07/29/17 18:30 18:45 19:00 Temperature 101.8 F 101.8 F 101.7 F Pulse Rate 80 78 79 Respiratory 15 Rate Blood Pressure 108/69 115/70 107/73 (mmHg) O2 Sat by Pulse 95 95 96 Oximetry 07/29/17 07/29/17 07/29/17 19:15 19:30 19:45 Temperature 101.5 F 101.5 F 101.5 F Pulse Rate 79 81 82 Respiratory Rate Blood Pressure 123/74 125/77 129/80 (mmHg) O2 Sat by Pulse 96 97 97 Oximetry 07/29/17 07/29/17 07/29/17 20:00 20:15 20:30 Temperature 100.9 F 101.3 F 101.7 F Pulse Rate 66 83 82 Respiratory 25 Rate Blood Pressure 119/83 127/78 129/81 (mmHg) O2 Sat by Pulse 96 97 97 Oximetry 07/29/17 07/29/17 07/29/17 20:45 21:00 21:15 Temperature 101.5 F 100.9 F 100.4 F Pulse Rate 80 76 74 Respiratory 16 Rate Blood Pressure 123/79 125/84 112/78 (mmHg) O2 Sat by Pulse 97 97 97 Oximetry 07/29/17 07/29/17 07/29/17 21:30 21:45 22:00 Temperature 99.9 F 99.9 F 99.5 F Pulse Rate 73 71 69 Respiratory 18 Rate Blood Pressure 122/83 130/87 (mmHg) O2 Sat by Pulse 97 97 96 Oximetry 07/29/17 07/29/17 07/29/17 22:15 22:30 22:45 Temperature 99.5 F 99.3 F 99.1 F Pulse Rate 69 68 65 Respiratory Rate Blood Pressure 133/84 124/83 127/80 (mmHg) O2 Sat by Pulse 98 97 97 Oximetry 07/29/17 07/29/17 07/29/17 23:00 23:15 23:30 Temperature 99.0 F 98.6 F 98.6 F Pulse Rate 65 74 67 Respiratory 16 Rate Blood Pressure 125/84 132/78 129/87 (mmHg) O2 Sat by Pulse 97 98 97 Oximetry 07/29/17 07/29/17 07/30/17 23:45 23:48 00:00 Temperature 98.6 F 98.4 F 98.4 F Pulse Rate 64 66 66 Respiratory 13 Rate Blood Pressure 129/87 126/88 (mmHg) O2 Sat by Pulse 97 97 97 Oximetry 07/30/17 07/30/17 07/30/17 00:15 00:30 00:45 Temperature 98.2 F 98.2 F 98.1 F Pulse Rate 66 64 61 Respiratory Rate Blood Pressure 124/82 126/85 129/87 (mmHg) O2 Sat by Pulse 97 97 97 Oximetry 07/30/17 07/30/17 07/30/17 01:00 01:15 01:30 Temperature 98.1 F 97.7 F 97.3 F Pulse Rate 62 62 63 Respiratory 13 Rate Blood Pressure 133/88 136/85 129/83 (mmHg) O2 Sat by Pulse 97 97 97 Oximetry 07/30/17 07/30/17 07/30/17 01:45 02:00 02:15 Temperature 97.5 F 97.5 F 97.5 F Pulse Rate 63 64 64 Respiratory 15 Rate Blood Pressure 129/85 131/83 130/86 (mmHg) O2 Sat by Pulse 97 97 97 Oximetry 07/30/17 07/30/17 07/30/17 02:30 02:45 03:00 Temperature 97.5 F 97.3 F 97.3 F Pulse Rate 63 73 77 Respiratory 13 Rate Blood Pressure 132/84 139/91 131/81 (mmHg) O2 Sat by Pulse 97 96 97 Oximetry 07/30/17 07/30/17 07/30/17 03:04 03:15 03:30 Temperature 97.5 F 97.7 F Pulse Rate 84 83 Respiratory 27 Rate Blood Pressure 132/81 120/83 (mmHg) O2 Sat by Pulse 96 96 Oximetry 07/30/17 07/30/17 07/30/17 03:45 04:00 04:15 Temperature 97.9 F 98.1 F 98.2 F Pulse Rate 73 71 68 Respiratory 13 Rate Blood Pressure 133/87 129/82 135/84 (mmHg) O2 Sat by Pulse 97 97 97 Oximetry 07/30/17 07/30/17 07/30/17 04:30 04:45 05:00 Temperature 98.2 F 98.2 F 98.2 F Pulse Rate 67 67 67 Respiratory 19 Rate Blood Pressure 133/87 136/87 124/84 (mmHg) O2 Sat by Pulse 98 97 97 Oximetry 07/30/17 07/30/17 07/30/17 05:07 05:15 05:30 Temperature 98.2 F 98.2 F Pulse Rate 61 66 Respiratory 35 Rate Blood Pressure 145/84 140/87 (mmHg) O2 Sat by Pulse 98 98 Oximetry 07/30/17 07/30/17 07/30/17 05:45 06:00 06:15 Temperature 98.2 F 98.1 F 98.2 F Pulse Rate 63 70 64 Respiratory 13 Rate Blood Pressure 141/88 150/97 143/86 (mmHg) O2 Sat by Pulse 98 98 97 Oximetry 07/30/17 07/30/17 07/30/17 06:30 07:00 07:15 Temperature 98.4 F 98.4 F 98.6 F Pulse Rate 70 63 68 Respiratory 16 Rate Blood Pressure 141/88 146/88 145/89 (mmHg) O2 Sat by Pulse 96 97 97 Oximetry 07/30/17 07/30/17 07/30/17 07:30 07:45 08:00 Temperature 98.6 F 98.4 F 98.4 F Pulse Rate 62 67 55 Respiratory 13 Rate Blood Pressure 145/93 152/102 (mmHg) O2 Sat by Pulse 97 98 96 Oximetry 07/30/17 07/30/17 08:01 08:16 Temperature 98.4 F 98.4 F Pulse Rate 60 70 Respiratory Rate Blood Pressure 147/104 148/92 (mmHg) O2 Sat by Pulse 97 96 Oximetry - Intake and Output Intake and Output: Intake & Output 07/27/17 07/28/17 07/29/17 07/30/17 11:59 11:59 11:59 11:59 Intake Total 2857 2992 3642.2 2181.8 Output Total 2550 3725 4625 2375 Balance 307 -733 -982.8 -193.2 Weight 194 lb 10.691 oz 196 lb 13.965 oz 191 lb 12.835 oz 189 lb 9.561 oz Intake: IV Fluids 2049 531 334.2 89.8 ABX - CEFTRIAXONE 55 ABX - LINEZOLID 300 NS (0.9%) 2049 176 334.2 89.8 IVPB 55 303 756 774 ABX - CEFTRIAXONE 155 ABX - LINEZOLID 303 601 300 ABX - ZOSYN 173 NS (0.9%) 55 301 Medicated IV 679 904 842 927 CC - Dexmedetomidine/ 112 Precedex Propofol 679 904 842 815 Oral 0 Tube Feeding 74 1154 1243 391 Tube Feeding Flush Amount 100 NG Tube Irrigate Amount 467 Output: [place] 2550 3725 6065 1875 Liquid Stool 500 Other: # Bowel Movements 1 1 Estimated Stool Amount Large Medium ADLs: Meal Record Start: 07/24/17 10: 24 Freq: 09,13,18 Status: Hold Protocol: Created 07/24/17 10:24 System (Rec: 07/24/17 10:24 System RESP-M01) Document 07/24/17 13:00 [id number] (Rec: 07/24/17 16:47 [id number] ICU-C07) Document 07/24/17 17:43 [id number] (Rec: 07/24/17 17:43 [id number] ICU-C07) Document 07/25/17 09:00 [id number] (Rec: 07/25/17 11:15 GIQ4769 ICU-C07) Document 07/25/17 13:00 [id number] (Rec: 07/25/17 16:07 [id number] ICU-C07) Document 07/25/17 21:01 [id number] (Rec: 07/25/17 21:02 [id number] ICU-C07) Document 07/26/17 09:00 JGF0432 (Rec: 07/26/17 14:47 [id number] ICU-C16) Document 07/26/17 13:00 [id number] (Rec: 07/26/17 14:47 [id number] ICU-C16) Document 07/26/17 17:49 [id number] (Rec: 07/26/17 17:50 WQV4697 ICU-C14) Intake and Output Start: 07/24/17 07: 38 Freq: Status: Active Protocol: Created 07/24/17 07:38 System (Rec: 07/24/17 07:38 System ED-C24) Intake and Output Start: 07/24/17 10: 24 Freq: 06,14,22 Status: Active Protocol: Created 07/24/17 10:24 System (Rec: 07/24/17 10:24 System RESP-M01) Document 07/24/17 12:30 [id number] (Rec: 07/24/17 13:49 [id number] ICU-C07) Document 07/24/17 14:00 [id number] (Rec: 07/24/17 16:54 [id number] ICU-C07) Document 07/24/17 19:28 CWI1497 (Rec: 07/24/17 19:28 RUB2619 ICU-C07) Document 07/24/17 21:50 YDK2881 (Rec: 07/24/17 21:51 MUD1424 ICU-M15) Document 07/25/17 05:32 GFZ7080 (Rec: 07/25/17 05:33 RVF9627 ICU-C07) Document 07/25/17 14:00 MTV7559 (Rec: 07/25/17 16:08 [id number] ICU-C07) Document 07/25/17 22:00 ROJ1310 (Rec: 07/25/17 22:26 XUF6121 ICU-C07) Document 07/26/17 05:42 JFP6260 (Rec: 07/26/17 05:42 NQZ5843 ICU-C07) Document 07/26/17 14:00 NFV4796 (Rec: 07/26/17 15:08 FEK6854 ICU-C16) Document 07/27/17 01:20 WYI4410 (Rec: 07/27/17 01:20 UXA3232 ICU-C07) Document 07/27/17 06:34 AWA6681 (Rec: 07/27/17 06:34 VVL7943 ICU-C07) Document 07/27/17 14:10 KWN1617 (Rec: 07/27/17 14:10 KCK5342 ICU-C07) Document 07/27/17 15:54 WFO5377 (Rec: 07/27/17 15:54 UDQ2427 ICU-C07) Document 07/27/17 18:06 XMT4455 (Rec: 07/27/17 18:06 EPX7176 ICU-M15) Document 07/27/17 22:00 DPZ6983 (Rec: 07/27/17 23:14 SKQ5297 ICU-M15) Document 07/28/17 05:52 AUG7935 (Rec: 07/28/17 05:54 CZP7410 ICU-M15) Document 07/28/17 12:00 TCI3063 (Rec: 07/28/17 12:14 KSE7864 ICU-C07) Document 07/28/17 14:00 MBH5078 (Rec: 07/28/17 14:04 ZRY4999 ICU-M26) Document 07/28/17 16:00 ICT3697 (Rec: 07/28/17 16:21 LBL2951 ICU-C06) Document 07/28/17 19:00 SVF0410 (Rec: 07/28/17 19:32 EDX1831 ICU-C06) Document 07/28/17 22:22 XAG1892 (Rec: 07/28/17 22:25 AKJ0379 ICU-M15) Document 07/29/17 06:09 YBY3655 (Rec: 07/29/17 06:09 CNU5243 ICU-M15) Document 07/29/17 14:00 PVN6968 (Rec: 07/29/17 17:33 OYH5461 ICU-M01) Document 07/29/17 22:00 BEQ5826 (Rec: 07/29/17 22:01 ODR2585 ICU-M01) Document 07/30/17 06:09 ZWH9164 (Rec: 07/30/17 06:10 ZRL1884 ICU-M01) - Physical Exam General Physical Exam Comment: Intubated. No rash. No splinter hemorrhages. Warm and well perfused. Good pedal pulses and no peripheral edema. He is not jaundiced. General: No Cyanosis, No Anemia, No Jaundice, No Clubbing Skin: Normal: Rash Lungs and Chest: No: Chest Expansion Full, Chest Expansion Symetrica - intubated Heart Rate and Rhythm: Regular Additional Cardiovascular: Yes: Normal Heart Sounds. No: Heart Murmur, Pedal Edema Abdominal Exam: Yes: Soft, Bowel Sounds Present. No: Distention, Abdominal Tenderness Results - Results Lab Results: Laboratory Results - last 24 hr 07/30/17 07/30/17 07/30/17 06:30 06:30 06:40 WBC 3.8 RBC 3.98 L Hgb 11.9 L Hct 34 L MCV 86 MCH 30 MCHC 35 RDW 13 Plt Count 241 MPV 8 Immature Gran % (Auto) 1 Neut % (Auto) 81.8 Lymph % (Auto) 11.3 L Scurry % (Auto) 6.7 Eos % (Auto) 0 Baso % (Auto) 0.2 Absolute Neuts (auto) 3.1 Absolute Lymphs (auto) 0.4 L Absolute Monos (auto) 0.3 Absolute Eos (auto) 0 Absolute Basos (auto) 0 Absolute Nucleated RBC 0 Neutrophils % 81 Lymphocytes % 10 L Reactive Lymphs % 1 Monocytes % 7 Myelocytes % 1 Nucleated RBC % 0 Normal RBC Morphology Normal INR (Anticoag Therapy) 1.06 H APTT 26.9 Sodium 134 Potassium 4.4 Chloride 98 L Carbon Dioxide 27 Anion Gap 9 BUN 16 Creatinine 0.66 L Est GFR ( Amer) 179.9 Est GFR (Non-Af Amer) 139.9 BUN/Creatinine Ratio 24.2 H Glucose 157 H Calcium 8.7 Phosphorus 4.0 Magnesium 2.8 H Total Bilirubin 0.90 Direct Bilirubin 0.40 H Indirect Bilirubin 0.5 AST 234 H ALT 331 H Alkaline Phosphatase 126 H Total Protein 6.2 L Albumin 2.9 L Globulin 3.3 Albumin/Globulin Ratio 0.9 L Radiology Results: Patient Name: MAURICE WHITAKER Medical Record#: [id number] Ordering Physician: Dominick Whitaker DO Acct.#: [id number] : 1985 Age: 31 Sex: M Location: [facility] Exam Date: 07/29/171599 ADM Status: ADM IN Order Information: CT CHEST W Accession Number: [id number] CPT: 60232 INDICATION: Worsening pneumonia and effusion COMPARISON: Multiple same day chest x-ray was TECHNIQUE: Axial source images of the chest were acquired after the injection of 80 mL Omnipaque 300 intravenous contrast from just above the lung apices to the base of the diaphragm. Coronal and sagittal reconstructed images were acquired. FINDINGS: The endotracheal tube is positioned in the trachea approximately 5.2 cm above the yunier. The gastric tube terminates in the upper portion of the gastric fundus. There is subcutaneous gas within the soft tissues of the neck and supraclavicular chest, worse on the right than the left. Gas tracks around the upper portions of the trachea esophagus. There is lobar consolidation of most of the right lower lobe with air bronchograms. There are multifocal round densities, ranging from subcentimeter groundglass nodules 2 a 2.5 cm nodule in the left lower lobe. There is a small right pleural effusion. There is a trace left pleural effusion. The heart is normal in size. There is no evidence of pericardial effusion. There is no evidence of aortic aneurysm or dissection. There is no mediastinal, hilar, or axillary lymphadenopathy. The osseous structures appear normal. Limited views of the upper abdomen show no abnormalities. IMPRESSION: 1. Near complete lobar consolidation of the right lower lobe with air bronchograms with diffuse round densities throughout the remaining for lobes. Pneumonia and/or septic emboli are the favored diagnoses considering the patient's age. 2. There is a small right and trace left pleural effusion. #3 subcutaneous gas overlying the neck and upper chest. Please correlate to trauma to the trachea or potential esophageal injury. <Electronically signed by Steven An MD in [place]> 07/29/171720 Dictated By: Steven An MD Dictated Date/Time: 07/29/171720 Transcribed Date/Time: 07/29/171714 Copy to: CC:Leroy Meneses MD; Enoch Powers MD; Dominick Whitaker DO; Mitch Otto MD 1 of 2 Patient Name: MAURICE WHITAKER Medical Record#: [id number] Ordering Physician: Dominick Whitaker DO Acct.#: [id number] : 1985 Age: 31 Sex: M Location: [facility] Exam Date: 07/30/17 0600 ADM Status: ADM IN Order Information: CHEST AP PORTABLE Accession Number: [id number] CPT: 39713 INDICATION: Respiratory failure secondary to pneumonia. COMPARISON: Most recent comparison chest x-ray is dated July 29, 2017 TECHNIQUE: Single AP portable view of the chest was obtained. FINDINGS: Image quality is compromised due to the relative inferiority of a portable chest x-ray. The endotracheal and gastric tubes are appropriately positioned. Again seen are bibasilar patchy densities with a larger consolidation overlying the right lower lobe with air bronchograms. Subcutaneous gas overlying the supraclavicular soft tissues and neck are unchanged. Visualized bones are normal for the patient's age. IMPRESSION: The degree of aeration compared to the most recent chest x-ray has not changed significantly as described above. <Electronically signed by Steven An MD in OV> 07/30/17757 Dictated By: Steven An MD Dictated Date/Time: 07/30/17757 Transcribed Date/Time: 07/30/17753 Copy to: CC:Leroy Meneses MD; Enoch Powers MD; Dominick Whitaker DO; Mitch Otto MD Imaging - [facility] Imaging - [facility] Imaging - [facility] [address] [place] [id number] [place] [id number] ph ([phone]) ph ([phone]) ph ([phone]) Assessment - Problem List Assessment: Patient Problems Community acquired pneumonia (Acute) Consolidation lung (Acute) Encephalopathy acute (Acute) Endotracheally intubated (Acute) Hepatitis, acute (Acute) Respiratory failure (Acute) Anterior T wave inversion (Chronic) Plan: Community acquired pneumonia (Acute) J18.9 /Consolidation lung (Acute) J18.1/ Respiratory failure (Acute) J96.90 He presented with several day history of cough, dyspnea, encephalopathy, hyponatremia and leukopenia. He has had prompt treatment with appropriate antibacterials. He has a densely consolidated right lung and has required intubation for this - a trial of weaning didn't succeed. Usual causes of CAP have been considered and his HIV negative. Rarer causes include Q fever and psittacosis - I will discuss this with the family. Dr. Whitaker is ordering a transthoracic echocardiogram. I will add a CRP, WILBERT and cadiolipid antibodies, along with other serological tests. Encephalopathy acute (Acute) G93.40 He is sedated at present, making it difficult to evaluation Endotracheally intubated (Acute) Z97.8 He requires ongoing intubation while he retains this dense consolidation - this should start to resolve in the next few days. He doesn't have evidence of ARDS. I discussed with Dr. Whitaker other modalities (tracheostomy, ECMO) - he doesn't fill criteria for either of these. Hepatitis, acute (Acute) B17.9 This may be the result of viral infectious processes, Legionella and Q fever. I note his AST was elevated at presentation and now he has both increase of his transaminases and ALP. Anterior T wave inversion (Chronic) R94.31 I don't have a comparison EKG - he is having an echocardiogram. He appears hemodynamically stable and has no stigmata of infective endocarditis. I had a 20 min conversation with the family after Dr. Whitaker had spent a longer time with them. I reviewed the above and discussed the natural history of pneumonia. I discussed complications of pneumonia and told them what evidence we have thus far. I noted that he does not appear to have ARDS. I also, shared with them the issue of hepatitis and told them this can occur with a variety of pneumonias. I discussed the usual pattern of recovery and timeline from pneumonia and the role of the mechanical ventilator. I asked questions about travel and contact with pets, farm animals and birds. I answered questions. I suggested that from my point of view there is no requirement for transfer to a tertiary center at this point. If his condition deteriorates, then I would certainly recommend transfer.
--- NOTE | 2017-07-30 10:26 | ECHO ---
Patient: MAURICE MCKEON [facility] Rec#: [id number] : 1985 Date: 07/30/2017 Age: 31y Height: 182.88 cm / 72.0 in Weight: 86.64 kg / 191.0 lbs Sex: M BSA: 2.09 Room#: ICU-2 Admit Date#: 07/24/2017 Type: Inpatient Referring: Dominick Whitaker Reading: Brent Bone MD Tractor Sweeper Driver: Carmel Daniel RDCS CC: Leroy Meneses MD Transthoracic Echocardiogram Indication: Sepsis, fever BP: 148/92 HR: 63 Rhythm: Bradycardia Findings History: Recent treatment for pneumonia. Patient was sedated, intubated and mechanically ventilated during the study. Technical Comments: The study quality is fair. The study is technically limited due to patient being intubated and on a ventilator. Completed at 1000. Left Ventricle: The left ventricular chamber size is normal. There is no left ventricular hypertrophy. Global left ventricular wall motion and contractility are within normal limits. There is normal left ventricular systolic function. The estimated ejection fraction is 55-60%. Normal left ventricular diastolic filling is observed. Left Atrium: The left atrial chamber size is normal. Right Ventricle: The right ventricular cavity size is normal.Probably normal. The apical 4 measurment may overestimate the RV diameter due to technical issues. The right ventricular global systolic function is normal. Right Atrium: The right atrial cavity size is normal. Aortic Valve: The aortic valve is trileaflet. There is a trace of aortic regurgitation. There is no evidence of aortic stenosis. Mitral Valve: The mitral valve leaflets are mildly thickened. There is a trace of mitral regurgitation. There is no evidence of mitral stenosis. Tricuspid Valve: The tricuspid valve leaflets are normal. There is mild tricuspid regurgitation. Unable to estimate the right ventricular systolic pressure. There is no tricuspid stenosis. Pulmonic Valve: The pulmonic valve appears normal. There is a trace pulmonic regurgitation. There is no pulmonic stenosis. Pericardium: There is no significant pericardial effusion. Aorta: There is mild dilatation of the ascending aorta. The aortic arch is not well visualized. There is mild dilatation of the aortic root. Pulmonary Artery: The main pulmonary artery is not well visualized. Venous: Unable to accurately comment on the size collapsibility of the IVC as the patient in known to be on mechanical ventilation. Summary: There was not any prior study for comparison. Conclusions The study quality is fair. Global left ventricular wall motion and contractility are within normal limits. The estimated ejection fraction is 55-60%. There is mild tricuspid regurgitation. Unable to estimate the right ventricular systolic pressure. There is a trace of mitral regurgitation. Measurements Name Value Normal Range RVIDd (AP) 2D 3.9 cm (0.9 - 2.6) RVDdMajor (2D) 4.7 cm (2.2 - 4.4) RAd ISD 4CH 4.1 cm (3.4 - 4.9) RA (A4C)W 3.7 cm (2.9 - 4.6) IVSd (2D) 0.9 cm (0.6 - 1) LVPWd (2D) 0.8 cm (0.6 - 1) LVIDd (2D) 4.1 cm (3.6 - 5.4) LVIDs (2D) 2.7 cm - LV FS (2D) 33 % (25 - 45) Aortic Annulus 2.2 cm (1.4 - 2.6) Ao root diameter (2D) 3.8 cm (2.1 - 3.5) Ascending Ao 3.7 cm (2.1 - 3.4) LA dimension (AP) 2D 3 cm (2.3 - 3.8) LAd ISD 4CH 4.3 cm (2.9 - 5.3) LA ISD 4CH W 4.5 cm (2.5 - 4.5) Name Value Normal Range LA ESV SP 4CH (A/L) 35 ml - LA ESV SP 2CH (A/L) 98 ml - LA ESV BP (A/L) 68 ml - LA ESV BP (A/L) index 33 ml/m2 - LA ESV SP 4CH (MOD) 33 ml - LA ESV SP 2CH (MOD) 89 ml - Name Value Normal Range MV E-wave Vmax 0.79 m/sec - MV deceleration time 325.5 msec - MV A-wave Vmax 0.57 m/sec - MV E:A ratio 1.36 ratio - LV septal e' Vmax 0.1 m/sec - LV lateral e' Vmax 0.15 m/sec - LV E:e' septal ratio 7.9 ratio - LV E:e' lateral ratio 5.27 ratio - Name Value Normal Range AV Vmax 1.4 m/sec - AV VTI 27.31 cm - AV peak gradient 7.56 mmHg - AV mean gradient 3.26 mmHg - LVOT Vmax 1.18 m/sec - LVOT VTI 22.28 cm - LVOT peak gradient 5.57 mmHg - LVOT mean gradient 2.6 mmHg - Name Value Normal Range TR Vmax 2.5 m/sec - TR peak gradient 25 mmHg - Name Value Normal Range PV Vmax 1.15 m/sec - PV peak gradient 5.26 mmHg -
[2017-07-30 11:13] LABS: C Reactive Protein 150.44 mg/L (< 5.00)
[2017-07-30] MEDS: Albuterol/Ipratropium NEB.SOL* Albuterol 2.5 MG/Ipratropium 0.5 MG 3 ML INH SCH ×2 (11:33→17:15)
--- NOTE | 2017-07-30 11:33 | PN ---
Progress Note - Progress Note Date of Service: 07/30/17 Note: CRITICAL CARE MEDICINE Date: 07/30/17 Time: 900 SUBJECTIVE: Patient seen and examined. family at bedside PHYSICAL EXAM: Vital Signs: Reviewed. Neurologic: sedated but opens eyes. coughing infrequent. HEENT: pupils equal. Sclera anicteric. Trachea midline. Cardiovascular: S1 S2, Hr 60-70 Respiratory: better aeration sounds again but just dec on R. no rales appreciable. Abdomen: Soft, nt. no organomegaly. No r/g/r. Extremities: Warm. Access: piv LABS: Reviewed. IMAGING: Reviewed. ct and cxr reviewed with family. MEDICATIONS: Reviewed. ASSESSMENT: 31 M Severe sepsis on admission sec to CAP - acting like a post flu strept or staph Septic and metabolic encephalopathy on admission - stable Acute hypoxic resp failure on admission - requiring mechanical ventilation for longer time due to dense pna Thrombocytopenia sec to sepsis consumption -now improved and perhaps more acute phase. 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 Subq emphysema post aprv and metaneb - no ptx PLAN: Neurologic: stable on prop and precedex. sympathetics better controlled. needs to remain sedated and limit coughing again today Cardiovascular: perfusing. vol status ok and wouldn't dry further today. check echo to ensure no valve ailment even though pre-test low. Respiratory: Leyda back on vent; Phigh down to 27 to 24 and may creep down and bit more and allow him to maintain if coughing able to remain limited. This dense pna will unfortunately remain longer and could become more complicated the longer it remains such but would not inc Phigh back yet until more liquified and can mobilize. may need another bronch down the lines for pulm toliet. can try inh mucomsyt to see if any benefit. keep nebs. on steroids for what its worth to prevent scarring. Gastrointestinal: tf. sup. transaminitis - ?? echo can r/o if pulm hepatic congestion. Question med affects. check TG with prop. Check US to ensure no structural abn. f/u clincally. Renal/Metabolic: stable. lytes ok. Infectious Disease: Zosyn, azithro, linezolid. ID following. bronch cx neg thusfar; viral pending. Hematology: stable. lovenox Endocrine: pulse of steroids continued Musculoskeletal: weak and deconditioned - follow rom Psych/Social: d/w and parents at length and we are all in agreement still and they expresses understanding. Will consider transfer to [facility] if pt still not improving towards or goals and expectations or if concern for more advance needs (ie ecmo) but certainly no where close to that. Supportive and preventative care as ordered. Disposition: ICU Code Status: Full Critical Care Time: 45min D/w Pts primary Dr. Law Cora Whitaker,
[2017-07-30] MEDS: Acetylcysteine INHALATION SOL* 200 MG/ML NEB.SOLN 10 ML INH SCH ×2 (11:34→17:15)
[2017-07-30] MEDS ORDERED: Acetaminophen ADULT LIQ* 650 MG/20.3 ML UDC PO PRN (11:54)
[2017-07-30] MEDS: Linezolid 600 MG IVPREMIX(*) 600 MG/300 ML BAG IVPB SCH (12:26)
[2017-07-30] MEDS: fentaNYL PCA* 20 ML PCA SCH (16:02)
--- NOTE | 2017-07-30 20:37 | RAD ---
HISTORY: Hepatitis COMPARISONS: None TECHNIQUE: Multiple transverse and longitudinal ultrasound images were obtained of the right upper quadrant. FINDINGS: Incidentally noted is a right pleural effusion. LIVER: The liver is normal in dimensions and echogenicity. Normal hepatic and portal venous blood flow is duplicated with color flow imaging. There is no gross intrahepatic biliary duct dilatation. GALLBLADDER AND EXTRAHEPATIC BILIARY DUCT: The gallbladder is normal in appearance without intraluminal stones or other soft tissue masses. There is no pericholecystic fluid or gallbladder wall thickening. The common bile duct measures a maximum diameter of 3 mm. PANCREAS: The portions of the pancreas not obscured by bowel gas are normal in appearance. RIGHT KIDNEY: The right kidney is normal in size, morphology and echogenicity. IMPRESSION: 1. NORMAL ULTRASOUND OF THE RIGHT UPPER QUADRANT. 2. INCIDENTALLY NOTED IS A RIGHT PLEURAL EFFUSION.
[2017-07-31] MEDS: Linezolid 600 MG IVPREMIX(*) 600 MG/300 ML BAG IVPB SCH ×3 (00:18→23:39)
[2017-07-31] MEDS: Albuterol/Ipratropium NEB.SOL* Albuterol 2.5 MG/Ipratropium 0.5 MG 3 ML INH SCH ×4 (00:35→19:33)
[2017-07-31] MEDS: Acetylcysteine INHALATION SOL* 200 MG/ML NEB.SOLN 10 ML INH SCH ×4 (00:36→19:34)
[2017-07-31] MEDS: Propofol* 100 ML IV SCH ×5 (03:19→12:40)
[2017-07-31] MEDS: Piperacillin/Tazobac ADVAN(*) 3.375 GM in D5W 100 ML BAG* 100 ML IVPB SCH ×3 (04:30→17:43)
[2017-07-31] MEDS: Chlorhexidine MOUTHWASH 0.12%* 15 ML UDC TOPICAL SCH ×7 (04:30→23:39)
[2017-07-31 06:09] LABS: Venous Bicarbonate HCO3 30.6 mmol/L (24-28)
[2017-07-31 06:13] LABS: Hematocrit 31 % (42-52); Mean Corpuscular HGB Conc 36 g/dl (31-36); Mean Corpuscular Hemoglobin 30 pg (27-31); Mean Corpuscular Volume 86 fL (80-94); Mean Platelet Volume 8 um3 (7.4-10.4); Red Cell Distribution Width 13 % (10.5-15); White Blood Count 4.8 10^3/ul (3.5-10.8)
[2017-07-31 06:21] LABS: Albumin 2.6 g/dL (3.2-5.2); BUN/Creatinine Ratio 26.2 (8-20); Calcium 8.3 mg/dL (8.6-10.3); Direct Bilirubin 0.2 mg/dL (0.03-0.18); EGFR Non-African American 153.2 (>60); Globulin 3.2 g/dL (2-4); Indirect Bilirubin 0.4 mg/dL (0.3-1.0); Magnesium 2.6 mg/dL (1.9-2.7); Phosphorus 3.2 mg/dL (2.5-5.0); Potassium 3.9 mmol/L (3.5-5.0); Total Bilirubin 0.6 mg/dL (0.2-1.0); Total Protein 5.8 g/dL (6.4-8.9)
[2017-07-31] MEDS: fentaNYL PCA* 20 ML PCA SCH (07:32)
--- NOTE | 2017-07-31 07:50 | RAD ---
HISTORY: Respiratory failure, pneumonia COMPARISONS: July 30, 2017 VIEWS: 1: frontal portable view of the chest at 6:05 AM FINDINGS: LINES AND TUBES: An endotracheal tube is noted with the tip overlying the trachea between the clavicles and the yunier. A gastric tube is noted, with the tip in the left upper quadrant in a prepyloric position.. A right-sided PICC line is noted with the tip overlying the cavoatrial junction. CARDIOMEDIASTINAL SILHOUETTE: The cardiomediastinal silhouette is normal for portable technique. PLEURA: The costophrenic angles are sharp. No pleural abnormalities are noted. LUNG PARENCHYMA: There is persistent patchy confluent alveolar opacification of the right mid and lower lung and to a lesser extent of the left lower lung. There has been slightly improved aeration of left lung compared to the previous examination. ABDOMEN: The upper abdomen is clear. There is no subphrenic gas. BONES AND SOFT TISSUES: No bone or soft tissue abnormalities are noted. IMPRESSION: 1. LINES AND TUBES ABOVE. 2. PERSISTENT BILATERAL CONSOLIDATION WITH SLIGHTLY IMPROVED AERATION OF THE LEFT LOWER LUNG COMPARED TO THE PREVIOUS EXAMINATION.
[2017-07-31] MEDS: Lactobacillus Acidophilu (GG)* 1 CAP CAP PO SCH (08:42)
[2017-07-31] MEDS: predniSONE TAB* 20 MG G TUBE SCH ×3 (08:42→20:57)
[2017-07-31] MEDS: Enoxaparin(*) 40 MG/0.4 ML SYR SUBCUT SCH (08:42)
--- NOTE | 2017-07-31 13:58 | PN ---
Progress Note - Progress Note Date of Service: 07/31/17 Note: CRITICAL CARE MEDICINE Date: 07/31/17 Time: 1100 SUBJECTIVE: Patient seen and examined. PHYSICAL EXAM: Vital Signs: Reviewed. Neurologic: awake, communicating well. HEENT: pupils equal. Sclera anicteric. Trachea midline. Cardiovascular: S1 S2, Hr 60-70 Respiratory: better aeration. no rales appreciable. Abdomen: Soft, nt. No r/g/r. Extremities: Warm. Access: picc LABS: Reviewed. IMAGING: Reviewed. cxr stable MEDICATIONS: Reviewed. ASSESSMENT: 31 M Severe sepsis on admission sec to CAP - acting like a post viral strept or staph ? 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 add fent with good balance and some better ga/cough inhibition. see if we can hold prop and use fent/precedex to allow comfort and more mobility. Cardiovascular: perfusing well. vol status ok. Respiratory: meron aprv well with Phigh 20; Thigh to 10s and large TV up to an over 1.5L at times. Still with deadspace however, and need to recruit that pna in RLL as best as able prior to next liberation. MV ~12lpm. He can remain on this spont and not dropping pressure further as needing to maintain recruitment and would remain on vent likely few more days to best tx lungs. another day of inh mucomsyt to see if any benefit. keep nebs. on steroids for what its worth to prevent scarring. Gastrointestinal: tf. sup. add prot suppl. transaminitis better - ?post viral or drug affect. improved. Liver Us fine. Renal/Metabolic: stable. lytes ok. Infectious Disease: Zosyn & linezolid. ID following. Hematology: stable. lovenox Endocrine: pulse of steroids continued Musculoskeletal: weak and deconditioned - follow rom, oob soon on vent and even ambulate Psych/Social: d/w and parents at length and we are all again in agreement of plans. Supportive and preventative care as ordered. Disposition: ICU Code Status: Full Critical Care Time: 35min Cora Whitaker DO
[2017-07-31] MEDS: Dexmedetomidine* 400 MCG in NS 0.9% 100 ML* 96 ML IVPB SCH ×2 (15:49→17:40)
[2017-07-31] MEDS: LORazepam INJ* 2 MG/ML 1 ML VIAL IV PUSH PRN ×2 (16:36→21:53)
[2017-07-31] MEDS: Morphine INJ* 4 MG/ML 1 ML CARPUJECT IV PRN (23:39)
[2017-08-01] MEDS: Albuterol/Ipratropium NEB.SOL* Albuterol 2.5 MG/Ipratropium 0.5 MG 3 ML INH SCH ×4 (01:04→20:11)
[2017-08-01] MEDS: Acetylcysteine INHALATION SOL* 200 MG/ML NEB.SOLN 10 ML INH SCH ×2 (01:04→06:17)
[2017-08-01] MEDS: fentaNYL PCA* 20 ML PCA SCH (01:12)
[2017-08-01] MEDS: LORazepam INJ* 2 MG/ML 1 ML VIAL IV PUSH PRN ×2 (02:22→22:15)
[2017-08-01] MEDS: Dexmedetomidine* 400 MCG in NS 0.9% 100 ML* 96 ML IVPB SCH ×3 (02:55→18:51)
[2017-08-01] MEDS: Piperacillin/Tazobac ADVAN(*) 3.375 GM in D5W 100 ML BAG* 100 ML IVPB SCH ×2 (03:59→10:29)
[2017-08-01] MEDS: Chlorhexidine MOUTHWASH 0.12%* 15 ML UDC TOPICAL SCH ×5 (03:59→20:52)
[2017-08-01] MEDS: Morphine INJ* 4 MG/ML 1 ML CARPUJECT IV PRN (05:48)
[2017-08-01 06:01] LABS: Hematocrit 35 % (42-52); Hemoglobin 12.2 g/dl (14.0-18.0); Mean Corpuscular HGB Conc 35 g/dl (31-36); Mean Corpuscular Hemoglobin 30 pg (27-31); Mean Corpuscular Volume 86 fL (80-94); Mean Platelet Volume 8 um3 (7.4-10.4); Red Blood Count 4.07 10^6/ul (4.0-5.4); Red Cell Distribution Width 13 % (10.5-15); White Blood Count 5.6 10^3/ul (3.5-10.8)
[2017-08-01 06:11] LABS: Add Diff/Slide Review? Slide Review Added; Comments Flag Yes
[2017-08-01 06:16] LABS: Albumin 3.1 g/dL (3.2-5.2); BUN/Creatinine Ratio 32.2 (8-20); Calcium 8.9 mg/dL (8.6-10.3); EGFR African American 204.7 (>60); EGFR Non-African American 159.2 (>60); Globulin 3.7 g/dL (2-4); Magnesium 2.6 mg/dL (1.9-2.7); Phosphorus 3.1 mg/dL (2.5-5.0); Potassium 4.6 mmol/L (3.5-5.0); Total Bilirubin 0.8 mg/dL (0.2-1.0); Total Protein 6.8 g/dL (6.4-8.9)
[2017-08-01] MEDS: Lactobacillus Acidophilu (GG)* 1 CAP CAP PO SCH (07:58)
[2017-08-01] MEDS: predniSONE TAB* 20 MG G TUBE SCH ×2 (07:58→20:52)
[2017-08-01] MEDS ORDERED: fentaNYL PCA* 20 ML PCA SCH (09:45)
[2017-08-01] MEDS: Enoxaparin(*) 40 MG/0.4 ML SYR SUBCUT SCH (10:29)
--- NOTE | 2017-08-01 11:17 | PN ---
Progress Note - Progress Note Date of Service: 08/01/17 Note: CRITICAL CARE MEDICINE Date: 08/01/17 Time: 900 SUBJECTIVE: Patient seen and examined. PHYSICAL EXAM: Vital Signs: Reviewed. Neurologic: awake, communicating well. precedex and fent. HEENT: pupils equal. Sclera anicteric. Trachea midline. mm dry. mild crepitance less above R clavical Cardiovascular: S1 S2, Hr 60-80 Respiratory: better aeration. no rales appreciable. sqwalk at rll Abdomen: Soft, nt. No r/g/r. Extremities: Warm. Good strength. Access: picc LABS: Reviewed. IMAGING: Reviewed. MEDICATIONS: Reviewed. ASSESSMENT: 31 M Severe sepsis on admission sec to CAP - acting like a post viral strept or staph ? 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 dec fent slightly. prn ativan for sleep aid. Cardiovascular: perfusing well. vol status at a good level. Respiratory: meron aprv well with Phigh 15 with Thigh 30; large volumes still. MV >10lpm. 30%. see how he works on this completely spontaneous peep and will get cxr tomorrow to see if he is maintaining or improving recruitment. bed auscultation today. Hopefully can push towards liberation next 24-48h as tx course of peep/aprv needs to conclude. Gastrointestinal: tf. sup. additional prot suppl. transaminitis better but still there - ?post viral> drug affect; given where it is and his course, will look to come off linezolid today. asym. Renal/Metabolic: stable. lytes ok. Infectious Disease: Zosyn continued & dc linezolid after today's dosing. ID following. Hematology: stable. lovenox Endocrine: pulse of steroids continued Musculoskeletal: deconditioned - chair position. oob to chair. dangle legs. ambulate if able. pt follow. Psych/Social: d/w and parents and they express understanding. Supportive and preventative care as ordered. Disposition: ICU Code Status: Full Critical Care Time: 35min Cora Whitaker DO
[2017-08-01] MEDS: Linezolid 600 MG IVPREMIX(*) 600 MG/300 ML BAG IVPB SCH (12:40)
[2017-08-01 19:32] LABS: Phospholipid Ab IgG < 9.4 GPL; Phospholipid Ab IgM, S 24.9 MPL
[2017-08-01] MEDS: ZOSYN 3.375 GM Q8H per EXTENDED INFUSION IVPB SCH ×2 (19:58)
[2017-08-02] MEDS: Linezolid 600 MG IVPREMIX(*) 600 MG/300 ML BAG IVPB SCH (00:06)
[2017-08-02] MEDS: Chlorhexidine MOUTHWASH 0.12%* 15 ML UDC TOPICAL SCH ×3 (00:06→11:51)
[2017-08-02] MEDS: Morphine INJ* 4 MG/ML 1 ML CARPUJECT IV PRN (00:07)
[2017-08-02] MEDS: Albuterol/Ipratropium NEB.SOL* Albuterol 2.5 MG/Ipratropium 0.5 MG 3 ML INH SCH ×2 (01:36→07:26)
[2017-08-02] MEDS: LORazepam INJ* 2 MG/ML 1 ML VIAL IV PUSH PRN (03:14)
[2017-08-02] MEDS: ZOSYN 3.375 GM Q8H per EXTENDED INFUSION IVPB SCH ×2 (03:18)
[2017-08-02] MEDS: Dexmedetomidine* 400 MCG in NS 0.9% 100 ML* 96 ML IVPB SCH (04:47)
[2017-08-02 06:23] LABS: Hematocrit 35 % (42-52); Hemoglobin 12.1 g/dl (14.0-18.0); Mean Corpuscular HGB Conc 35 g/dl (31-36); Mean Corpuscular Hemoglobin 30 pg (27-31); Mean Corpuscular Volume 86 fL (80-94); Mean Platelet Volume 8 um3 (7.4-10.4); Red Blood Count 4.04 10^6/ul (4.0-5.4); Red Cell Distribution Width 13 % (10.5-15); White Blood Count 7.2 10^3/ul (3.5-10.8)
[2017-08-02 06:29] LABS: Add Diff/Slide Review? Slide Review Added; Albumin 3.2 g/dL (3.2-5.2); BUN/Creatinine Ratio 28.8 (8-20); Comments Flag Yes; EGFR African American 160.1 (>60); EGFR Non-African American 124.5 (>60); Globulin 3.4 g/dL (2-4); Magnesium 2.5 mg/dL (1.9-2.7); Phosphorus 3.5 mg/dL (2.5-5.0); Potassium 4.2 mmol/L (3.5-5.0); Total Bilirubin 0.8 mg/dL (0.2-1.0); Total Protein 6.6 g/dL (6.4-8.9)
--- NOTE | 2017-08-02 07:48 | RAD ---
INDICATION: Respiratory failure COMPARISON: Chest x-ray July 31, 2017 TECHNIQUE: An AP portable view obtained at 0542 hours is submitted. FINDINGS: Bones/Soft Tissues: There are no acute bony findings. There is an endotracheal tube in satisfactory position. Nasogastric tube terminates in the fundus. A right-sided central venous catheter terminates in the superior vena cava Cardiomediastinal: The cardiomediastinal silhouette is normal. Lungs: There are patchy right-sided infiltrates. There is significant interval improvement. The left lung is clear. Pleura: There are no pleural effusions. Other: None IMPRESSION: ENDOTRACHEAL TUBE IN SATISFACTORY POSITION. IMPROVING RIGHT-SIDED INFILTRATE.
--- NOTE | 2017-08-02 10:51 | PN ---
Progress Note - Progress Note Date of Service: 08/02/17 Note: CRITICAL CARE MEDICINE Date: 08/02/17 Time: 840 SUBJECTIVE: Patient seen and examined. at bedside. PHYSICAL EXAM: Vital Signs: Reviewed. Neurologic: awake, communicating well. precedex and fent less. HEENT: pupils equal. Sclera anicteric. Trachea midline. Cardiovascular: S1 S2, Hr 80 Respiratory: better aeration. no rales appreciable. no sqwalk Abdomen: Soft, nt. No r/g/r. Extremities: Warm. Good strength. Access: picc LABS: Reviewed. IMAGING: Reviewed. MEDICATIONS: Reviewed. ASSESSMENT: 31 M Severe sepsis on admission sec to CAP - acting like a post viral strept or staph ? 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 Cardiovascular: perfusing well. vol status ok and he can mobilize. Respiratory: cpap this am with 12/7 and TV >1.5L. MV still up but some anxiety, but certainly still with vast microscopic disease, but shouldn't proclude him for doing well post liberation. will still need pulm toliet post liberation. flutter. doubt metaneb need but reserve. Gastrointestinal: po diet later. sup; lfts lingering, but likely more drug related. off linezolid/C3. Renal/Metabolic: stable. lytes ok. Infectious Disease: Zosyn continued for some extended course, perhaps a 7 day course of itself - started on 07/29. off others. Hematology: stable. lovenox Endocrine: taper steroids. no induced ards and can taper off. Musculoskeletal: deconditioned - oob to chair; ambulate when ready. pt follow. scott out later. Psych/Social: d/w pt, and parents and they express understanding. Supportive and preventative care as ordered. Disposition: ICU Code Status: Full Critical Care Time: 35min Cora Whitaker DO
[2017-08-02] MEDS: Enoxaparin(*) 40 MG/0.4 ML SYR SUBCUT SCH (11:20)
[2017-08-02] MEDS: Piperacillin/Tazobac ADVAN(*) 3.375 GM in D5W 100 ML BAG* 100 ML IVPB SCH ×2 (11:20→18:59)
[2017-08-02] MEDS: predniSONE TAB* 20 MG G TUBE SCH (11:52)
[2017-08-02] MEDS: Lactobacillus Acidophilu (GG)* 1 CAP CAP PO SCH (13:57)
[2017-08-02] MEDS ORDERED: LORazepam TAB(*) 1 MG PO PRN (15:01)
[2017-08-02] MEDS: traZODone TAB* 100 MG PO PRN (23:48)
[2017-08-03] MEDS: Piperacillin/Tazobac ADVAN(*) 3.375 GM in D5W 100 ML BAG* 100 ML IVPB SCH ×2 (02:29→09:29)
[2017-08-03 06:28] LABS: Albumin 3.2 g/dL (3.2-5.2); BUN/Creatinine Ratio 25.3 (8-20); Calcium 8.8 mg/dL (8.6-10.3); EGFR African American 130.8 (>60); EGFR Non-African American 101.7 (>60); Globulin 3.3 g/dL (2-4); Potassium 3.6 mmol/L (3.5-5.0); Total Bilirubin 0.9 mg/dL (0.2-1.0); Total Protein 6.5 g/dL (6.4-8.9)
--- NOTE | 2017-08-03 08:05 | PN ---
Subjective - Subjective Reason for Note: Progress Note History: Assuming care today contingent on Dr. Whitaker's final sign-off. He is extubated and breathing room air. He slept poorly overnight. Earlier on he was coughing - but no severe paroxysms. He is not dyspneic. He has not had any chest pain, palpitations. He has walked and felt a little weak, but otherwise fine. He has no unusual pain. He was hot overnight - required a fan , but no rigors/chills. He has no adverse effects of the antibacterials - no rashes, diarrhea, problems with appetite. 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 Current Medications: Current Medications Acetaminophen (Tylenol Adult Liq*) 650 mg PO Q6H PRN PRN Reason: FEVER Albuterol/Ipratropium (Duoneb (Albuterol 2.5 Mg/Ipratropium 0.5 Mg)) 1 neb INH Q4H PRN PRN Reason: SOB/WHEEZING Last Admin: 07/30/17 02:57 Dose: 1 neb Enoxaparin Sodium (Lovenox(*)) 40 mg SUBCUT Q24H [facility] Last Admin: 08/02/17 11:20 Dose: 40 mg Heparin Sodium (Porcine) (Heparin Flush Picc/Ml/Cvc(*)) 1 - 3 ml FLUSH 0600, 1800 [facility] PRN Reason: Protocol Last Admin: 08/03/17 05:53 Dose: 3 ml Piperacillin Sod/Tazobactam (Sod 3.375 gm/ Dextrose) 100 mls @ 25 mls/hr IVPB Q8H [facility] Last Admin: 08/03/17 02:29 Dose: 25 mls/hr Lorazepam (Ativan Tab(*)) 1 mg PO Q4H PRN PRN Reason: ANXIETY Last Admin: 08/02/17 22:03 Dose: 1 mg Ondansetron HCl (Zofran Inj*) 4 mg IV Q4H PRN PRN Reason: NAUSEA Pharmacy Consult (Zosyn Per Pharmacy*) 1 note FOLLOW UP .ZOSYN PER PHARMACY [facility] Prednisone (Deltasone Tab*) 40 mg G TUBE DAILY [facility] Trazodone HCl (Desyrel Tab*) 100 mg PO BEDTIME PRN PRN Reason: SLEEP Last Admin: 08/02/17 23:48 Dose: 100 mg Home Medications: Home Medications Medication Instructions Recorded Confirmed Type Albuterol HFA INHALER* [Ventolin 2 puff INH Q4H PRN #1 mdi 07/23/17 07/24/17 Rx HFA Inhaler*] Guaifenesin-Codeine [Cheratussin 5 ml PO Q4H PRN #90 ml MDD 30 ml 07/23/1707/24 Rx AC 100-10 mg/5Ml] Levofloxacin TAB* [Levaquin TAB*] 500 mg PO DAILY #7 tab 07/23/17 07/24/17 Rx Allergies: Allergies Allergy/AdvReac Type Severity Reaction Status Date / Time Clarithromycin [From Biaxin] Allergy Hives Verified 07/23/17 10:19 Objective - Vital Signs Vital Signs: Vital Signs 08/02/17 08/02/17 08/02/17 08:00 08:30 08:40 Temperature 99.0 F 99.0 F Pulse Rate 80 84 Respiratory 10 12 Rate Blood Pressure 133/83 135/89 (mmHg) O2 Sat by Pulse 97 98 Oximetry 08/02/17 08/02/17 08/02/17 09:00 09:21 09:24 Temperature 98.6 F Pulse Rate 74 63 Respiratory 10 20 Rate Blood Pressure 154/98 (mmHg) O2 Sat by Pulse 99 99 99 Oximetry 08/02/17 08/02/17 08/02/17 09:30 10:00 10:30 Temperature 98.6 F Pulse Rate 70 76 66 Respiratory 10 Rate Blood Pressure 144/100 158/95 (mmHg) O2 Sat by Pulse 99 98 100 Oximetry 08/02/17 08/02/17 08/02/17 11:00 11:30 12:00 Temperature Pulse Rate 67 102 84 Respiratory 12 Rate Blood Pressure 150/100 150/102 136/99 (mmHg) O2 Sat by Pulse 99 97 96 Oximetry 08/02/17 08/02/17 08/02/17 12:30 13:00 13:22 Temperature Pulse Rate 80 89 88 Respiratory 14 Rate Blood Pressure 146/99 133/94 (mmHg) O2 Sat by Pulse 94 95 94 Oximetry 08/02/17 08/02/17 08/02/17 13:30 14:00 15:00 Temperature Pulse Rate 89 99 81 Respiratory 11 17 Rate Blood Pressure 132/90 130/89 138/90 (mmHg) O2 Sat by Pulse 95 94 97 Oximetry 08/02/17 08/02/17 08/02/17 16:00 17:00 18:00 Temperature Pulse Rate 91 85 90 Respiratory 14 13 12 Rate Blood Pressure 138/93 140/94 141/98 (mmHg) O2 Sat by Pulse 99 95 95 Oximetry 08/02/17 08/02/17 08/02/17 19:00 20:00 20:53 Temperature Pulse Rate 82 92 101 Respiratory 15 Rate Blood Pressure 161/88 163/98 (mmHg) O2 Sat by Pulse 95 93 95 Oximetry 08/02/17 08/02/17 08/02/17 21:00 22:00 22:03 Temperature Pulse Rate 86 79 Respiratory 18 13 16 Rate Blood Pressure 135/93 132/90 (mmHg) O2 Sat by Pulse 94 96 Oximetry 08/02/17 08/02/17 08/02/17 23:00 23:01 23:13 Temperature Pulse Rate 84 92 84 Respiratory 10 15 22 Rate Blood Pressure 127/97 (mmHg) O2 Sat by Pulse 96 98 97 Oximetry 08/02/17 08/03/17 08/03/17 23:47 00:00 00:17 Temperature 99.3 F Pulse Rate 106 Respiratory 24 14 Rate Blood Pressure 143/102 (mmHg) O2 Sat by Pulse 96 Oximetry 08/03/17 08/03/17 08/03/17 00:56 01:00 02:00 Temperature Pulse Rate 87 79 96 Respiratory 14 14 17 Rate Blood Pressure 127/85 122/85 (mmHg) O2 Sat by Pulse 96 99 93 Oximetry 08/03/17 08/03/17 08/03/17 03:00 04:00 05:00 Temperature 98.5 F Pulse Rate 76 74 88 Respiratory 11 15 19 Rate Blood Pressure 119/78 129/82 127/89 (mmHg) O2 Sat by Pulse 98 97 97 Oximetry 08/03/17 08/03/17 08/03/17 05:56 06:00 07:00 Temperature Pulse Rate 78 66 Respiratory 12 9 11 Rate Blood Pressure 127/84 126/82 (mmHg) O2 Sat by Pulse 97 98 Oximetry 08/03/17 07:48 Temperature 99.2 F Pulse Rate Respiratory Rate Blood Pressure (mmHg) O2 Sat by Pulse Oximetry - Intake and Output Intake and Output: Intake & Output 07/31/17 08/01/17 08/02/17 08/03/17 11:59 11:59 11:59 11:59 Intake Total 2931.0 4395.7 1502.8 1111 Output Total 3525 3000 3802 550 Balance -594.0 1395.7 -2299.2 561 Weight 185 lb 3.013 oz 179 lb 0.246 oz 175 lb 0.752 oz Intake: IV Fluids 461.3 443 631 42 ABX - LINEZOLID 300 55 300 ABX - ZOSYN 79.3 13 NS (0.9%) 82 375 331 42 IVPB 940 478 469 ABX - LINEZOLID 610 310 ABX - ZOSYN 330 168 441 NS (0.9%) 28 Medicated IV 898.7 339.7 127.8 CC - Dexmedetomidine/ 135.7 157.7 127.8 Precedex Propofol 763 182 IV Narcotic Infusion 1420 Fentanyl 1420 Oral 600 Tube Feeding 1571 1188 266 Tube Feeding Flush Amount 45 NG Tube Irrigate Amount 20 Output: NG Tube Drainage Amount 752 Urine 250 [place] 3525 3000 3050 300 Tube Feeding Residual 0 Amount Wasted Other: Estimated Void Medium ADLs: Meal Record Start: 07/24/17 10: 24 Freq: 09,13,18 Status: Hold Protocol: Created 07/24/17 10:24 System (Rec: 07/24/17 10:24 System RESP-M01) Document 07/24/17 13:00 [id number] (Rec: 07/24/17 16:47 [id number] ICU-C07) Document 07/24/17 17:43 QBS4302 (Rec: 07/24/17 17:43 HMU0614 ICU-C07) Document 07/25/17 09:00 TBS9390 (Rec: 07/25/17 11:15 [id number] ICU-C07) Document 07/25/17 13:00 XTK1504 (Rec: 07/25/17 16:07 VHJ0034 ICU-C07) Document 07/25/17 21:01 OOT1359 (Rec: 07/25/17 21:02 QTF7809 ICU-C07) Document 07/26/17 09:00 UOY6624 (Rec: 07/26/17 14:47 WQE4061 ICU-C16) Document 07/26/17 13:00 TDQ3085 (Rec: 07/26/17 14:47 WWG7382 ICU-C16) Document 07/26/17 17:49 WLE4997 (Rec: 07/26/17 17:50 OKA1939 ICU-C14) Intake and Output Start: 07/24/17 07: 38 Freq: Status: Active Protocol: Created 07/24/17 07:38 System (Rec: 07/24/17 07:38 System ED-C24) Intake and Output Start: 07/24/17 10: 24 Freq: 06,14,22 Status: Active Protocol: Created 07/24/17 10:24 System (Rec: 07/24/17 10:24 System RESP-M01) Document 07/24/17 12:30 VBL4066 (Rec: 07/24/17 13:49 IRD2209 ICU-C07) Document 07/24/17 14:00 EQE9988 (Rec: 07/24/17 16:54 HMV9401 ICU-C07) Document 07/24/17 19:28 IBU8432 (Rec: 07/24/17 19:28 OJR6992 ICU-C07) Document 07/24/17 21:50 CCM4978 (Rec: 07/24/17 21:51 XWU7992 ICU-M15) Document 07/25/17 05:32 RHH5438 (Rec: 07/25/17 05:33 BSQ2384 ICU-C07) Document 07/25/17 14:00 WQG3555 (Rec: 07/25/17 16:08 OEJ5452 ICU-C07) Document 07/25/17 22:00 OIH0789 (Rec: 07/25/17 22:26 GZH0382 ICU-C07) Document 07/26/17 05:42 ZCX9182 (Rec: 07/26/17 05:42 ZLL7975 ICU-C07) Document 07/26/17 14:00 PLN9233 (Rec: 07/26/17 15:08 GWH1830 ICU-C16) Document 07/27/17 01:20 UKA2339 (Rec: 07/27/17 01:20 BEI8833 ICU-C07) Document 07/27/17 06:34 XGA9697 (Rec: 07/27/17 06:34 DSY5792 ICU-C07) Document 07/27/17 14:10 QLL4506 (Rec: 07/27/17 14:10 OKS5464 ICU-C07) Document 07/27/17 15:54 XMG8470 (Rec: 07/27/17 15:54 INL3816 ICU-C07) Document 07/27/17 18:06 YNV0288 (Rec: 07/27/17 18:06 SJB5191 ICU-M15) Document 07/27/17 22:00 RKA0816 (Rec: 07/27/17 23:14 ETQ0792 ICU-M15) Document 07/28/17 05:52 XGM9688 (Rec: 07/28/17 05:54 ULY7064 ICU-M15) Document 07/28/17 12:00 KPB2013 (Rec: 07/28/17 12:14 DAI3122 ICU-C07) Document 07/28/17 14:00 EEC7498 (Rec: 07/28/17 14:04 KZO9748 ICU-M26) Document 07/28/17 16:00 QVJ3976 (Rec: 07/28/17 16:21 XNO1328 ICU-C06) Document 07/28/17 19:00 QNH3377 (Rec: 07/28/17 19:32 TVA7414 ICU-C06) Document 07/28/17 22:22 HMB6262 (Rec: 07/28/17 22:25 FDY6606 ICU-M15) Document 07/29/17 06:09 DOT7200 (Rec: 07/29/17 06:09 QEJ8941 ICU-M15) Document 07/29/17 14:00 ESR9290 (Rec: 07/29/17 17:33 VAW4256 ICU-M01) Document 07/29/17 22:00 USI0447 (Rec: 07/29/17 22:01 PVV9221 ICU-M01) Document 07/30/17 06:09 OYN9440 (Rec: 07/30/17 06:10 OIG2130 ICU-M01) Document 07/30/17 14:00 NJH0492 (Rec: 07/30/17 18:27 QQT3619 ICU-M01) Document 07/30/17 22:00 VBA3095 (Rec: 07/30/17 22:06 HCS3259 [facility]-RDC2) Document 07/30/17 22:00 TCH2431 (Rec: 07/30/17 22:08 JEK3917 ICU-C16) Document 07/31/17 06:00 PTM0140 (Rec: 07/31/17 06:10 OLC8096 ICU-M01) Document 07/31/17 06:19 TXN9918 (Rec: 07/31/17 06:20 JEF2130 ICU-C10) Document 07/31/17 14:00 PUP1211 (Rec: 07/31/17 14:22 OQJ9901 ICU-C16) Document 07/31/17 21:37 PBH9636 (Rec: 07/31/17 21:37 YJR4135 ICU-M01) Document 07/31/17 21:39 JHY1780 (Rec: 07/31/17 21:40 QDT1658 ICU-M01) Document 08/01/17 05:00 RTA4710 (Rec: 08/01/17 05:56 WND5278 ICU-M01) Document 08/01/17 14:00 IZF2611 (Rec: 08/01/17 18:55 CGU5886 ICU-M01) Document 08/01/17 22:51 FFG5491 (Rec: 08/01/17 22:52 LIQ2748 ICU-C15) Document 08/02/17 06:00 ORO5802 (Rec: 08/02/17 06:28 JPL1996 ICU-C14) Document 08/02/17 14:00 BAT5968 (Rec: 08/02/17 17:57 LUN0979 ICU-C16) Document 08/02/17 22:00 UFH5406 (Rec: 08/02/17 22:39 WWI8999 ICU-C16) Document 08/03/17 05:54 UXX8570 (Rec: 08/03/17 05:54 SSV9986 ICU-M01) - Physical Exam General: No Cyanosis, No Anemia, No Jaundice, No Clubbing Eye Exam: bilateral: EOMI Skin: Normal: Rash, Lesions Lungs and Chest: Yes: Chest Expansion Full, Chest Expansion Symetrica, Percussion Note Resonant, Vessicular Breath Sounds, Crackles - right base. No: Wheezes, Respiratory Distress, Use of Accessory Muscles Heart Rate and Rhythm: Regular JVP: Not Elevated Additional Cardiovascular: Yes: Normal Heart Sounds. No: Heart Murmur, Pedal Edema Abdominal Exam: Yes: Soft, Bowel Sounds Present. No: Distention, Abdominal Mass , Abdominal Tenderness - Extremities Cranial Nerves II-XII Intact: Yes Limbs: Normal Power - Neuro Orientation: A/O x3 Speech: Normal Results - Results Lab Results: Laboratory Results - last 24 hr 08/03/17 05:45 Sodium 134 Potassium 3.6 Chloride 102 Carbon Dioxide 26 Anion Gap 6 BUN 22 Creatinine 0.87 Est GFR ( Amer) 130.8 Est GFR (Non-Af Amer) 101.7 BUN/Creatinine Ratio 25.3 H Glucose 111 H Calcium 8.8 Total Bilirubin 0.90 AST 72 H ALT 237 H Alkaline Phosphatase 123 H Total Protein 6.5 Albumin 3.2 Globulin 3.3 Albumin/Globulin Ratio 1.0 Radiology Results: Patient Name: MAURICE MCKEON Medical Record#: [id number] Ordering Physician: Dominick Whitaker DO Acct.#: [id number] : 1985 Age: 31 Sex: M Location: [facility] Exam Date: 08/02/17 0600 ADM Status: ADM IN Order Information: CHEST AP PORTABLE Accession Number: [id number] CPT: 70124 INDICATION: Respiratory failure COMPARISON: Chest x-ray July 31, 2017 TECHNIQUE: An AP portable view obtained at 0542 hours is submitted. FINDINGS: Bones/Soft Tissues: There are no acute bony findings. There is an endotracheal tube in satisfactory position. Nasogastric tube terminates in the fundus. A right-sided central venous catheter terminates in the superior vena cava Cardiomediastinal: The cardiomediastinal silhouette is normal. Lungs: There are patchy right-sided infiltrates. There is significant interval improvement. The left lung is clear. Pleura: There are no pleural effusions. Other: None IMPRESSION: ENDOTRACHEAL TUBE IN SATISFACTORY POSITION. IMPROVING RIGHT-SIDED INFILTRATE. <Electronically signed by Mayo Anderson MD in [place]> 08/02/17744 Dictated By: Mayo Anderson MD Dictated Date/Time: 08/02/17744 Transcribed Date/Time: 08/02/17743 Copy to: CC:Leroy Meneses MD; Enoch Powers MD; Dominick Whitaker DO; Mitch Otto MD Imaging - [facility] Imaging - [facility] Imaging - [facility] [address] [address] ph ([phone]) ph ([phone]) ph ([phone]) of Assessment - Problem List Assessment: Patient Problems Community acquired pneumonia (Acute) Consolidation lung (Acute) Encephalopathy acute (Acute) Endotracheally intubated (Acute) Hepatitis, acute (Acute) Respiratory failure (Acute) Anterior T wave inversion (Chronic) Plan: Community acquired pneumonia (Acute)Consolidation lung (Acute)Respiratory failure (Acute) He is recovering well after being extubated. He has no concerning new symptoms. He states he is not bringing up sputum at present. Complications: * sepsis - resolved * leukopenia - resolved * thrombocytopenia - resolved * anemia - improving - likely an acute phase response * SIADH - resolved * emphysema of tissues - resolving\ Antibacterial therapy: I will continue a full 7 day course of zosyn per Dr. Whitaker. Prednisone: Rapid taper Insomnia: Likely ICU effect - private room/melatonin/dc telemetry. Encephalopathy acute (Acute) No longer a problem Endotracheally intubated (Acute) extubated Hepatitis, acute (Acute) This is slowly resolving - the ALP particularly, faster than the transaminases Anterior T wave inversion (Chronic) Possible sleep apnea - this has been reported by observation - I will check an overnight oximetry to look for desaturations. I discussed the above with the patient and his father - they agree with the management plan
[2017-08-03] MEDS ORDERED: predniSONE TAB* 20 MG G TUBE SCH (09:00)
[2017-08-03] MEDS: predniSONE TAB* 10 MG PO SCH ×2 (09:28→21:47)
[2017-08-03] MEDS: Enoxaparin(*) 40 MG/0.4 ML SYR SUBCUT SCH (09:28)
--- NOTE | 2017-08-03 10:48 | PN ---
Progress Note - Progress Note Date of Service: 08/03/17 Note: CRITICAL CARE MEDICINE Date: 08/03/17 Time: 915 SUBJECTIVE: Patient seen and examined. at bedside. restless night; feels better though PHYSICAL EXAM: Vital Signs: Reviewed. Neurologic: communicating well. HEENT: pupils equal. Sclera anicteric. Trachea midline. Cardiovascular: S1 S2, Hr 70 Respiratory: good aeration, mild dec on R but otherwise clear. Abdomen: Soft, nt. No r/g/r. Extremities: Warm. Good strength. Access: picc LABS: Reviewed. IMAGING: Reviewed. MEDICATIONS: Reviewed. ASSESSMENT: 31 M Severe sepsis on admission sec to CAP - culture neg, acting like a post viral strept or staph Septic and metabolic encephalopathy on admission - resolved Acute hypoxic resp failure on admission - liberated from vent / Thrombocytopenia sec to sepsis consumption Leukopenia sec to sepsis consumption Hypovolemic hyponatremia and component of SIADH on admission - resolved Subq emphysema post aprv and metaneb - no ptx, improved PLAN: doing well. on RA. oob. regain strength. continued pulm toliet efforts and healing and continue to gain reserve. ambulate. on zosyn and can complete this week or can d/w ID if pt leaves hospital sooner in regards to course of total abx f/u lfts as they continue to improve. steroid taper. roberto? f/u Dr. Meneses taking over care. To floor. Disposition: floor Code Status: Full Critical Care Time: 25min Cora Whitaker,
[2017-08-03] MEDS: ZOSYN 3.375 GM Q8H per EXTENDED INFUSION IVPB SCH ×2 (18:04)
[2017-08-03] MEDS ORDERED: CMCS Melatonin (NF) 3 MG TAB PO PRN (20:38)
[2017-08-03] MEDS ORDERED: Melatonin (NF) ** ENTER STRENGTH IN LABEL DIRECTIONS PO SCH (21:00)
[2017-08-03] MEDS ORDERED: CMCS Melatonin (NF) 3 MG TAB PO SCH (21:00)
[2017-08-04] MEDS: ZOSYN 3.375 GM Q8H per EXTENDED INFUSION IVPB SCH ×2 (03:36)
[2017-08-04 07:49] LABS: Hematocrit 37 % (42-52); Hemoglobin 12.9 g/dl (14.0-18.0); Mean Corpuscular HGB Conc 35 g/dl (31-36); Mean Corpuscular Hemoglobin 29 pg (27-31); Mean Corpuscular Volume 85 fL (80-94); Mean Platelet Volume 7 um3 (7.4-10.4); Red Blood Count 4.39 10^6/ul (4.0-5.4); Red Cell Distribution Width 13 % (10.5-15); White Blood Count 8.4 10^3/ul (3.5-10.8)
[2017-08-04 08:09] LABS: Albumin 3.5 g/dL (3.2-5.2); BUN/Creatinine Ratio 21.8 (8-20); C Reactive Protein 13.7 mg/L (< 5.00); Calcium 9.3 mg/dL (8.6-10.3); Direct Bilirubin 0.2 mg/dL (0.03-0.18); EGFR African American 130.8 (>60); EGFR Non-African American 101.7 (>60); Globulin 3.6 g/dL (2-4); Indirect Bilirubin 0.9 mg/dL (0.3-1.0); Total Bilirubin 1.1 mg/dL (0.2-1.0); Total Protein 7.1 g/dL (6.4-8.9)
[2017-08-04 08:10] VITALS: BP 139/86
[2017-08-04] MEDS: predniSONE TAB* 10 MG PO SCH (08:17)
--- NOTE | 2017-08-04 08:46 | PN ---
Subjective - Subjective Reason for Note: Discharge Note History: Discharge summary He is feeling close to normal. He had no fevers/sweats overnight. He coughed a little before going to sleep, but has had no further coughing, hemoptysis, chest pain. He has had no adverse effects from antibacterials. He wants to go home 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 Current Medications: Current Medications Acetaminophen (Tylenol Adult Liq*) 650 mg PO Q6H PRN PRN Reason: FEVER Cefdinir (Cefdinir Cap (Nf)) 300 mg PO BID [facility] Enoxaparin Sodium (Lovenox(*)) 40 mg SUBCUT Q24H AVINASH Last Admin: 08/03/17 09:28 Dose: 40 mg Heparin Sodium (Porcine) (Heparin Flush Picc/Ml/Cvc(*)) 1 - 3 ml FLUSH 0600, 1800 [facility] PRN Reason: Protocol Last Admin: 08/04/17 08:17 Dose: 1 ml Melatonin (Melatonin (Nf)) 3 mg PO BEDTIME AVINASH Last Admin: 08/03/17 21:47 Dose: 3 mg Melatonin (Melatonin (Nf)) 3 mg PO BEDTIME PRN PRN Reason: IF NO RESULT FROM FIRST DOSE Last Admin: 08/03/17 23:54 Dose: 3 mg Prednisone (Deltasone Tab*) 5 mg PO DAILY [facility] Trazodone HCl (Desyrel Tab*) 100 mg PO BEDTIME PRN PRN Reason: SLEEP Last Admin: 08/02/17 23:48 Dose: 100 mg Home Medications: Home Medications Medication Instructions Recorded Confirmed Type Albuterol HFA INHALER* [Ventolin 2 puff INH Q4H PRN #1 mdi 07/23/17 07/24/17 Rx HFA Inhaler*] Guaifenesin-Codeine [Cheratussin 5 ml PO Q4H PRN #90 ml MDD 30 ml 07/23/1707/24 Rx AC 100-10 mg/5Ml] Cefdinir cap (NF) [Cefdinir 300 MG 300 mg PO BID #10 cap 08/04/17 Rx cap (NF)] predniSONE TAB* [Deltasone TAB*] 5 mg PO DAILY #5 tab 08/04/17 Rx traZODone TAB* [Desyrel TAB*] 100 mg PO BEDTIME PRN tab 08/04/17 Rx Allergies: Allergies Allergy/AdvReac Type Severity Reaction Status Date / Time Clarithromycin [From Biaxin] Allergy Hives Verified 07/23/17 10:19 Objective - Vital Signs Vital Signs: Vital Signs 08/03/17 08/03/17 08/03/17 09:00 10:00 11:00 Temperature 98.0 F Pulse Rate 102 92 92 Respiratory 28 17 16 Rate Blood Pressure 122/82 114/88 140/91 (mmHg) O2 Sat by Pulse 94 95 98 Oximetry 08/03/17 08/03/17 08/03/17 15:40 19:30 19:31 Temperature 97.4 F 98.3 F Pulse Rate 80 86 Respiratory 18 20 18 Rate Blood Pressure 132/83 133/86 (mmHg) O2 Sat by Pulse 98 100 98 Oximetry 08/03/17 08/04/17 08/04/17 22:57 00:24 03:42 Temperature 97.1 F 97.9 F 97.4 F Pulse Rate 73 73 86 Respiratory 16 18 14 Rate Blood Pressure 130/82 136/81 117/69 (mmHg) O2 Sat by Pulse 100 94 97 Oximetry 08/04/17 07:30 Temperature 97.9 F Pulse Rate 82 Respiratory 16 Rate Blood Pressure 139/86 (mmHg) O2 Sat by Pulse 99 Oximetry - Intake and Output Intake and Output: Intake & Output 08/01/17 08/02/17 08/03/17 08/04/17 11:59 11:59 11:59 11:59 Intake Total 4395.7 1502.8 1111 840 Output Total 3000 3802 550 Balance 1395.7 -2299.2 561 840 Weight 179 lb 0.246 oz 175 lb 0.752 oz Intake: IV Fluids 443 631 42 ABX - LINEZOLID 55 300 ABX - ZOSYN 13 NS (0.9%) 375 331 42 IVPB 940 478 469 ABX - LINEZOLID 610 310 ABX - ZOSYN 330 168 441 NS (0.9%) 28 Medicated IV 339.7 127.8 CC - Dexmedetomidine/ 157.7 127.8 Precedex Propofol 182 IV Narcotic Infusion 1420 Fentanyl 1420 Oral 600 840 Tube Feeding 1188 266 Tube Feeding Flush Amount 45 NG Tube Irrigate Amount 20 Output: NG Tube Drainage Amount 752 Urine 250 [place] 3000 3050 300 Other: Estimated Void Medium Medium # Bowel Movements 1 # Voids 1 1 ADLs: Meal Record Start: 07/24/17 10: 24 Freq: 09,13,18 Status: Complete Protocol: Created 07/24/17 10:24 System (Rec: 07/24/17 10:24 System RESP-M01) Document 07/24/17 13:00 [id number] (Rec: 07/24/17 16:47 [id number] ICU-C07) Document 07/24/17 17:43 [id number] (Rec: 07/24/17 17:43 [id number] ICU-C07) Document 07/25/17 09:00 VDV9688 (Rec: 07/25/17 11:15 [id number] ICU-C07) Document 07/25/17 13:00 [id number] (Rec: 07/25/17 16:07 [id number] ICU-C07) Document 07/25/17 21:01 [id number] (Rec: 07/25/17 21:02 [id number] ICU-C07) Document 07/26/17 09:00 KHM4542 (Rec: 07/26/17 14:47 VXO1431 ICU-C16) Document 07/26/17 13:00 IZL5773 (Rec: 07/26/17 14:47 AGJ3162 ICU-C16) Document 07/26/17 17:49 [id number] (Rec: 07/26/17 17:50 [id number] ICU-C14) ADLs: Meal Record Start: 08/03/17 12: 00 Freq: DAILY@0600,1400,2200 Status: Active Protocol: Created 08/03/17 12:00 [id number] (Rec: 08/03/17 12:00 [id number] MED-C11) Document 08/03/17 14:00 QVA8794 (Rec: 08/03/17 14:53 TMW0151 MED-C09) Document 08/03/17 18:11 AUA3032 (Rec: 08/03/17 18:12 TLC2165 MED-C09) Document 08/04/17 05:51 OVN5166 (Rec: 08/04/17 05:51 TIJ4225 MEDL-C01) Intake and Output Start: 07/24/17 07: 38 Freq: Status: Active Protocol: Created 07/24/17 07:38 System (Rec: 07/24/17 07:38 System ED-C24) Intake and Output Start: 07/24/17 10: 24 Freq: 06,14,22 Status: Active Protocol: Created 07/24/17 10:24 System (Rec: 07/24/17 10:24 System RESP-M01) Document 07/24/17 12:30 [id number] (Rec: 07/24/17 13:49 WZP2091 ICU-C07) Document 07/24/17 14:00 ARN7694 (Rec: 07/24/17 16:54 UON0459 ICU-C07) Document 07/24/17 19:28 NDK1569 (Rec: 07/24/17 19:28 MTX3278 ICU-C07) Document 07/24/17 21:50 TWX4989 (Rec: 07/24/17 21:51 XKW1522 ICU-M15) Document 07/25/17 05:32 NWL7298 (Rec: 07/25/17 05:33 TDQ8937 ICU-C07) Document 07/25/17 14:00 GMW0508 (Rec: 07/25/17 16:08 BQX4747 ICU-C07) Document 07/25/17 22:00 NVG6140 (Rec: 07/25/17 22:26 ZXO0974 ICU-C07) Document 07/26/17 05:42 YGB9380 (Rec: 07/26/17 05:42 CIQ5904 ICU-C07) Document 07/26/17 14:00 USQ2568 (Rec: 07/26/17 15:08 UCR1927 ICU-C16) Document 07/27/17 01:20 MPX2259 (Rec: 07/27/17 01:20 AVN0936 ICU-C07) Document 07/27/17 06:34 NVS3438 (Rec: 07/27/17 06:34 KGD1956 ICU-C07) Document 07/27/17 14:10 VPE0321 (Rec: 07/27/17 14:10 LTI5851 ICU-C07) Document 07/27/17 15:54 OOZ2374 (Rec: 07/27/17 15:54 GOQ8548 ICU-C07) Document 07/27/17 18:06 JBT4912 (Rec: 07/27/17 18:06 NFY9699 ICU-M15) Document 07/27/17 22:00 ORZ3917 (Rec: 07/27/17 23:14 VDS4069 ICU-M15) Document 07/28/17 05:52 ZTC7170 (Rec: 07/28/17 05:54 IFS7398 ICU-M15) Document 07/28/17 12:00 QTH0796 (Rec: 07/28/17 12:14 OFZ8738 ICU-C07) Document 07/28/17 14:00 SPW2055 (Rec: 07/28/17 14:04 LJI2610 ICU-M26) Document 07/28/17 16:00 ZTJ1026 (Rec: 07/28/17 16:21 YOS4452 ICU-C06) Document 07/28/17 19:00 DSQ8414 (Rec: 07/28/17 19:32 TYM1342 ICU-C06) Document 07/28/17 22:22 EXU3817 (Rec: 07/28/17 22:25 YZH4802 ICU-M15) Document 07/29/17 06:09 IGW0904 (Rec: 07/29/17 06:09 FSX1184 ICU-M15) Document 07/29/17 14:00 YUH9595 (Rec: 07/29/17 17:33 IUR9630 ICU-M01) Document 07/29/17 22:00 YTS7640 (Rec: 07/29/17 22:01 NGD6638 ICU-M01) Document 07/30/17 06:09 FDW3423 (Rec: 07/30/17 06:10 SUT8471 ICU-M01) Document 07/30/17 14:00 AMX9237 (Rec: 07/30/17 18:27 YBT4474 ICU-M01) Document 07/30/17 22:00 IHF3638 (Rec: 07/30/17 22:06 [id number] [facility] [place]-RDC2) Document 07/30/17 22:00 OFR5803 (Rec: 07/30/17 22:08 WZK6410 ICU-C16) Document 07/31/17 06:00 IKA2585 (Rec: 07/31/17 06:10 VVL4393 ICU-M01) Document 07/31/17 06:19 KBF2159 (Rec: 07/31/17 06:20 KWW0569 ICU-C10) Document 07/31/17 14:00 DYW4899 (Rec: 07/31/17 14:22 RXG4868 ICU-C16) Document 07/31/17 21:37 PWI2561 (Rec: 07/31/17 21:37 QPJ3815 ICU-M01) Document 07/31/17 21:39 CEE4930 (Rec: 07/31/17 21:40 NTP3327 ICU-M01) Document 08/01/17 05:00 HVD2871 (Rec: 08/01/17 05:56 DBQ7362 ICU-M01) Document 08/01/17 14:00 BTG9752 (Rec: 08/01/17 18:55 ZLF5992 ICU-M01) Document 08/01/17 22:51 JXJ7108 (Rec: 08/01/17 22:52 EOB5117 ICU-C15) Document 08/02/17 06:00 WNZ3880 (Rec: 08/02/17 06:28 YTU5382 ICU-C14) Document 08/02/17 14:00 GAI1996 (Rec: 08/02/17 17:57 GTD5696 ICU-C16) Document 08/02/17 22:00 BVF3564 (Rec: 08/02/17 22:39 RHI8810 ICU-C16) Document 08/03/17 05:54 LIB2275 (Rec: 08/03/17 05:54 GHR7960 ICU-M01) Document 08/03/17 08:57 JUX0114 (Rec: 08/03/17 08:57 PLZ4848 ICU-C16) Document 08/03/17 21:54 OHN7284 (Rec: 08/03/17 21:55 MOI6785 MED-C09) Document 08/04/17 05:50 LKB3312 (Rec: 08/04/17 05:50 GHC4474 MEDL-C01) - Physical Exam General: No Cyanosis, No Anemia, No Jaundice, No Clubbing Skin: Normal: Rash Lungs and Chest: Yes: Chest Expansion Full, Chest Expansion Symetrica, Percussion Note Resonant, Vessicular Breath Sounds, Crackles - coarse, right b ase. No: Wheezes, Respiratory Distress, Use of Accessory Muscles Heart Rate and Rhythm: Regular JVP: Not Elevated Additional Cardiovascular: Yes: Normal Heart Sounds. No: Heart Murmur, Pedal Edema Abdominal Exam: Yes: Soft, Bowel Sounds Present. No: Distention, Abdominal Tenderness - Extremities Cranial Nerves II-XII Intact: Yes Limbs: Normal Power - Neuro Orientation: A/O x3 Psychiatric: Normal Speech: Normal Results - Results Lab Results: Laboratory Results - last 24 hr 08/04/17 08/04/17 07:00 07:00 WBC 8.4 RBC 4.39 Hgb 12.9 L Hct 37 L MCV 85 MCH 29 MCHC 35 RDW 13 Plt Count 416 MPV 7 L Neut % (Auto) 80.3 Lymph % (Auto) 11.1 L [place] % (Auto) 8.0 Eos % (Auto) 0.2 Baso % (Auto) 0.4 Absolute Neuts (auto) 6.7 Absolute Lymphs (auto) 0.9 L Absolute Monos (auto) 0.7 Absolute Eos (auto) 0 Absolute Basos (auto) 0 Absolute Nucleated RBC 0 Nucleated RBC % 0 Sodium 134 Potassium 4.0 Chloride 102 Carbon Dioxide 24 Anion Gap 8 BUN 19 Creatinine 0.87 Est GFR ( Amer) 130.8 Est GFR (Non-Af Amer) 101.7 BUN/Creatinine Ratio 21.8 H Glucose 97 Calcium 9.3 Total Bilirubin 1.10 H Direct Bilirubin 0.20 H Indirect Bilirubin 0.9 AST 48 H ALT 196 H Alkaline Phosphatase 122 H C-Reactive Protein 13.70 H Total Protein 7.1 Albumin 3.5 Globulin 3.6 Albumin/Globulin Ratio 1.0 Assessment - Problem List Assessment: Patient Problems Community acquired pneumonia (Acute) Consolidation lung (Acute) Encephalopathy acute (Acute) Endotracheally intubated (Acute) Hepatitis, acute (Acute) Respiratory failure (Acute) Anterior T wave inversion (Chronic) Plan: He is recovered from his pneumonia. His CRP is acceptably low. I will have him complete a further 5 day course of cefdinir 300 mg bid and also prednisone 5 mg daily for 5 days. He will follow up with me in my office in 3 days.
[2017-08-04] MEDS ORDERED: predniSONE TAB* 5 MG PO SCH (09:00)
[2017-08-04] MEDS ORDERED: CEFDINIR 300 MG PO SCH (09:00)
[2017-08-04] MEDS: Enoxaparin(*) 40 MG/0.4 ML SYR SUBCUT SCH (09:29)
[2017-08-04] MEDS ORDERED: Piperacillin/Tazobac ADVAN(*) 3.375 GM in D5W 100 ML BAG* 100 ML IVPB SCH (18:30)
--- NOTE | 2017-08-06 03:22 | DS ---
CC: Dr. Dominick Whitaker; Dr. Enoch Powers DISCHARGE SUMMARY: DATE OF ADMISSION: 07/24/17 DATE OF DISCHARGE: 08/04/17 DISCHARGE DIAGNOSES: 1. Community-acquired pneumonia with marked consolidation of the right lung and patchy consolidation of the left lung. 2. Acute encephalopathy. 3. Acute respiratory failure. 4. Mechanical ventilation. 5. Acute hepatitis. 6. Severe sepsis. 7. Thrombocytopenia. 8. Leukopenia. 9. Hypovolemic. 10. 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 11. Subcutaneous emphysema. HISTORY OF PRESENT ILLNESS: Trever Whitaker is a 31-year-old white male. His presentation is documente d in Dr. Mitch Otto's admitting history and physical. He had a 3 to 4 day history of nonproductive cough, watery diarrhea, general malaise, and confusion. He was seen at urgent care diagnosed with pn eumonia and started on azithromycin and albuterol inhaler without improvement. [facility] x-ray showed right lower lung consolidation. Sodium of 116, CPK of 1455, white count of 2.6. He had sinus tachycardia in EKG and biphasic T- waves V3 through V6. PHYSICAL EXAMINATION: Alert and oriented, complaining of confusion. Temperature 103.5, pulse 110, b lood pressure 140/86, mean pressure of 98, O2 saturation 94% on 2 L. Crackles at the right base. INITIAL IMPRESSION: Pneumonia, diarrhea, confusion, rhabdomyolysis, hyponatremia suggestive of Legio melba or other infectious organisms. Initiated ceftriaxone, azithromycin, and blood cultures. INVESTIGATIONS: Imaging: He had a series of chest x-rays leading to a chest CT scan on 07/29/17. T hese showed increasing consolidation of the right lower lobe with air bronchograms suggestive pneumon ia, left pleural effusion, small right pleural effusion. Liver ultrasound on 07/30 which was normal. By 08/02/17, chest x-ray showed interval improvement of the right-sided infiltrates, left lung was clear. Cardiovascular: Transesophageal echocardiogram 07/30/17, normal left ventricular contractility, ejec tion fraction 55% to 60%, mild tricuspid regurgitation, trace of mitral regurgitation. Microbiology: Venous blood cultures negative. Nasal screen negative for MRSA. Sputum, Staph aureus and normal jose. Staph aureus was sensitive to all antibiotics tested. Urine antigen for Legionell a and Streptococcus pneumonia was negative. Serology for influenza A and B were negative. LABORATORY FINDINGS: At presentation, he had leukopenia with blood count of 2.6, percent neutrophils 72.7, and thrombocytopenia with a platelet count of 93. By 07/28, WBC and platelet counts have rest ored. He had become mildly anemic with a hemoglobin of 12.4. On 08/04/17, white count 8.4, hemoglob in 12.9, hematocrit 37, and platelet count 416. On 07/31/17, venous BG, pH 7.41, pCO2 53, pO2 41, bicarbonate 30.6, oxygen saturation 81.2%. LABORATORY TESTING: He had initial hyponatremia, which was restored by medical therapy. Initial vania er function test showed an AST of 91, ALT of 31, alkaline phosphatase of 34. On 07/25, AST was 84, A LT 35, alkaline phosphatase 27; however, on 07/30/17, his AST was 234, ALT 331, and alkaline phosphat ase 126. By 08/04/17, there was some resolution of this with AST of 196, ALT of 122. He has an elev ated GGTP of 348 on 07/30/17. Kidney function during his hospitalization was intact. C-reactive protein on 07/30/17 was 150 and on 08/04/17 was 13.7. Toxicology at admission, urine pH screen was presumptively positive, urine canna binoid screen was presumptively positive. His anticardiolipin IgM antibodies were positive at 24.9. Serology, Q fever negative, histoplasmosis negative, HIV negative. HOSPITAL COURSE: During his initial hospitalization, he developed respiratory failure and required i ntubation. He had one attempted extubation, which was unsuccessful and was finally extubated on 02/11 and 08/03/17. I transferred him to the general medical bed. He was breathing comfortably witho ut oxygen and maintaining his saturations. CONSULTATIONS: He was seen in consultation by Dr. Enoch Powers on the day of presentation and thakur bsequently his opinion is part of the electronic medical records, he felt that he has a community-acq uired pneumonia, essentially progressive right lower lobe infiltrate, provided differential diagnosis pneumococcus, haemophilus, Legionella, influenza bacterial pneumonia, felt that leukopenia and throm bocytopenia are related to sepsis, encephalopathy was due to underlying infection. Initial treatment was with ceftriaxone and azithromycin. He was also treated with vancomycin, linezolid and finally w ith piperacillin and tazobactam and responded well to this management. On the day of discharge, he is alert and oriented. He no longer had dyspnea. He felt weak on walkin g, but not excessively so. He had stopped coughing and was not bringing up any phlegm. He denied dy spnea. Denied sweats or fevers. He witnessed no adverse effects from his antibacterials. PHYSICAL EXAMINATION: Temperature 97.9, pulse 82, respirations 16, blood pressure 139/86, oxygen sat uration on room air 99%. He had no cyanosis, anemia, jaundice, clubbing, or adenopathy. No rash. R espiratory System: Chest expansion was full and symmetrical. Percussion note resonant. Breath soun ds vesicular with crackles in the right base. No wheezes, respiratory distress or use of accessory m uscles of respiration. Cardiovascular System: Pulse regular. Venous pressure not elevated. Heart s ounds are normal. No added sounds or murmurs. No pedal edema. Abdomen was benign. Nervous System: Cranial nerves II through XII are intact. Arms and legs showed normal power. He is alert and orie nted x3 and conversational, insightful. Speech was normal. ASSESSMENT AND PLAN: 1. Community-acquired pneumonia with consolidation of the right lung, respiratory failure, and sepsi s. This recovered with antibacterial treatment, mechanical ventilation, and low dose steroids. I el ected to treat him with a 5 days of several antibacterial treatment following discharge. 2. Acute encephalopathy was resolved in the first few days of hospitalizations due to severe sepsis. 3. Sepsis. This resolved with Procrit management. 4. Mechanical ventilation. This was required for elevated heart rate since the hospitalization pam ng which he was managed in the intensive care by the intensivists. 5. Hepatitis. The etiology is not clear. It started after his admission to the hospital, it could have been due to the infectious agents or alternatively an allergy to his medication. We will follow this to resolution as an outpatient. 6. Abnormal EKG. He had some anterior T-wave inversions. I will check his EKG after discharge. DISCHARGE MEDICATIONS: 1. Cefdinir 300 mg twice daily. 2. Prednisone 5 mg daily. 3. Trazodone 100 mg at bedtime as needed. 4. Albuterol HFA inhaler 2 puffs every 4 hours as needed. 5. Guaifenesin and codeine 5 mL every 4 hours as needed, not to exceed 30 mL. FOLLOWUP: Appointment was made to follow up at my office in three days. [id number]/[facility] #: [id number]
== END 2017-08-04 10:25 | disposition home or self-care (01) | DRG 853 ==
LOC: ED 07:31 → ICU 09:07 → MED 08-03 11:27
PROVIDERS: ADMIT Internal Medicine Critical Care Medicine; ATTEND Internal Medicine
PROC: 5A1955Z Respiratory Ventilation, Greater than 96 Consecutive Hours (ICD-10-PCS; 2017-07-26)
PROC: 0BH17EZ Insertion of Endotracheal Airway into Trachea, Via Natural or Artificial Opening (ICD-10-PCS; 2017-07-26)
PROC: 0B9F8ZX Drainage of Right Lower Lung Lobe, Via Natural or Artificial Opening Endoscopic, Diagnostic (ICD-10-PCS; 2017-07-27)
PROC: 0B9C8ZX Drainage of Right Upper Lung Lobe, Via Natural or Artificial Opening Endoscopic, Diagnostic (ICD-10-PCS; 2017-07-27)
PROC: 0BP1XDZ Removal of Intraluminal Device from Trachea, External Approach (ICD-10-PCS; 2017-07-28)
PROC: 0B9F8ZX Drainage of Right Lower Lung Lobe, Via Natural or Artificial Opening Endoscopic, Diagnostic (ICD-10-PCS; 2017-07-29)
PROC: 0BH17EZ Insertion of Endotracheal Airway into Trachea, Via Natural or Artificial Opening (ICD-10-PCS; 2017-07-29)
PROC: 02HV33Z Insertion of Infusion Device into Superior Vena Cava, Percutaneous Approach (ICD-10-PCS; principal; 2017-07-30)
PROC: 0BP1XDZ Removal of Intraluminal Device from Trachea, External Approach (ICD-10-PCS; 2017-08-03)
DX: A41.9 Sepsis, unspecified organism (principal); J96.01 Acute respiratory failure with hypoxia; J18.9 Pneumonia, unspecified organism; G93.41 Metabolic encephalopathy; D61.818 Other pancytopenia; E22.2 Syndrome of inappropriate secretion of antidiuretic hormone; D69.59 Other secondary thrombocytopenia; M62.82 Rhabdomyolysis; B17.9 Acute viral hepatitis, unspecified; D72.818 Other decreased white blood cell count; D64.9 Anemia, unspecified; T81.82XA Emphysema (subcutaneous) resulting from a procedure, initial encounter; Y82.8 Other medical devices associated with adverse incidents; Y92.239 Unspecified place in hospital as the place of occurrence of the external cause; R19.7 Diarrhea, unspecified; R65.20 Severe sepsis without septic shock; I08.1 Rheumatic disorders of both mitral and tricuspid valves; Z72.89 Other problems related to lifestyle; Z88.1 Allergy status to other antibiotic agents; Z82.49 Family history of ischemic heart disease and other diseases of the circulatory system; Z83.3 Family history of diabetes mellitus; Z79.52 Long term (current) use of systemic steroids
CPT/HCPCS: 31622; 36415; 71010; 71020; 71260; 76705; 80048; 80053; 80076; 80307; 80320; 81003; 81015; 82140; 82550; 82803; 82977; 83605; 83615; 83690; 83735; 84100; 84300; 84443; 84478; 84484; 85025; 85027; 85610; 85652; 85730; 86038; 86140; 86147; 86638; 86703; 87040; 87070; 87077; 87102; 87186; 87205; 87252; 87385; 87502; 87641; 87899; 90686; 93005; 93306; 94002; 94003; 94640; 94660; 94667; 94668; 94760; 94762; A9270-GY; C1751; G0480; J0456; J0461; J0696; J1650; J1940; J2020; J2060; J2270; J2543; J2704; J3010; J7512; Q9967

== ENCOUNTER 2017-08-05 16:20 | Inpatient (IN) | payer OTHER ==
[2017-08-05] MEDS ORDERED: Iohexol 300* (CONTRAST) 10 ML SDV IV ONE (16:58)
[2017-08-05 17:32] LABS: Hematocrit 41 % (42-52); Hemoglobin 14.4 g/dl (14.0-18.0); Mean Corpuscular HGB Conc 35 g/dl (31-36); Mean Corpuscular Hemoglobin 30 pg (27-31); Mean Corpuscular Volume 86 fL (80-94); Mean Platelet Volume 8 um3 (7.4-10.4); Red Blood Count 4.78 10^6/ul (4.0-5.4); Red Cell Distribution Width 13 % (10.5-15); White Blood Count 8.4 10^3/ul (3.5-10.8)
[2017-08-05 17:42] LABS: Albumin 3.9 g/dL (3.2-5.2); BUN/Creatinine Ratio 26.6 (8-20); Calcium 9.2 mg/dL (8.6-10.3); EGFR African American 119.6 (>60); Globulin 3.9 g/dL (2-4); Potassium 4.2 mmol/L (3.5-5.0); Total Bilirubin 0.8 mg/dL (0.2-1.0); Total Protein 7.8 g/dL (6.4-8.9)
--- NOTE | 2017-08-05 17:48 | RAD ---
Indication: Seizure. Comparison: No relevant prior exams available on the [facility] PACS for comparison. Technique: Pre and postcontrast CT brain. 75 mL Omnipaque 300 contrast administered IV. Report: The sulci, ventricles, and basal cisterns are normal for age. Shaver matter white matter differentiation is preserved without evidence for edema. No intra or extra axial hemorrhage, mass, or fluid collection detected. No abnormal intra or extra-axial enhancement evident. Unremarkable visualized orbital contents. Unremarkable calvarium and skull base. Unremarkable scalp. The visualized paranasal sinuses and mastoid air spaces are clear. IMPRESSION: Negative unenhanced and contrast-enhanced CT of the head.
[2017-08-05] MEDS ORDERED: LORazepam INJ* 2 MG/ML 1 ML VIAL ONE (18:52)
[2017-08-05] MEDS ORDERED: LORazepam INJ* 2 MG/ML 1 ML VIAL IV PUSH ONE ×2 (18:56→20:38)
[2017-08-05] MEDS ORDERED: FOSPHENYTOIN IVPB ONE ×2 (19:01→20:00)
[2017-08-05] MEDS ORDERED: NS 0.9% IVPB ONE ×2 (19:01→20:00)
[2017-08-05] MEDS ORDERED: CMCS: Melatonin (NF) 3 MG TAB PO PRN (22:18)
[2017-08-05] MEDS ORDERED: Ondansetron INJ* 2 MG/ML VIAL IV PRN (22:18)
[2017-08-05] MEDS ORDERED: Lidocaine 2% PF * 5 ML VIAL ONE (22:19)
[2017-08-05 23:12] LABS: Body Fluid Appearance Clear
[2017-08-05 23:13] LABS: BF RBC Count #1 0; BF RBC Count #2 0; BF WBC Count #1 1; BF WBC Count #2 0; Body Fluid WBC 1 /mcL; RBC counts within 6%? Yes; WBC counts within 15%? Yes
[2017-08-05 23:14] LABS: CSF Glucose 65 mg/dL (40-70)
--- NOTE | 2017-08-05 23:28 | ED ---
Kyra Chavez Jason, scribed for Guilherme Daugherty MD on 08/05/17 at 1642 . Neurological HPI - HPI Summary HPI Summary: This patient is a 31 year old M presenting to [facility] accompanied by female with a chief complaint of neurological deficit since 1300 today. The patients geological drafter states that the patient looks at me like hes listening but his eyes twitch and flutter, hands shake, and he has difficulty responding. Additionally , the patient states his PCP sent him here for a CT and has had a couple of these episodes so far. The patient includes that he was recently in the hospital for two weeks for PNA and is currently taking antibiotics and steroids for treatment. The patient rates the pain 0/10 in severity. Symptoms aggravated by nothing. Symptoms alleviated by nothing. - History of Current Complaint Chief Complaint: EDGeneral Stated Complaint: POSSIBLE SEIZURE Time Seen by Provider: 08/05/17 16:29 Hx Obtained From: Patient, Family/Furnace Room Supervisor - female geological drafter Onset/Duration: Gradual Onset, Started hours ago - since 1300, Still Present Pain Intensity: 0 Pain Scale Used: 0-10 Numeric Character: Responsiveness - decreased Frequency: Episodes x___ - multiple so far Aggravating: Nothing Alleviating: Nothing Associated Signs and Symptoms: Positive: Impaired Speech - decreased responsiveness - Additional Pertinent History Primary Care Physician: [id number] - Allergy/Home Medications Allergies/Adverse Reactions: Allergies Allergy/AdvReac Type Severity Reaction Status Date / Time Clarithromycin [From Biaxin] Allergy Hives Verified 07/23/17 10:19 PMH/Surg Hx/FS Hx/Imm Hx Previously Healthy: No Endocrine/Hematology History: Denies: Hx Diabetes, Hx Anemia Cardiovascular History: Denies: Hx Hypertension Respiratory History: Denies: Hx Asthma, Hx Chronic Obstructive Pulmonary Disease (COPD) GI History: Denies: Hx Jaundice Sensory History: Denies: Hx Contacts or Glasses, Hx Eye Injury, Hx Eye Prosthesis, Hx Glaucoma , Hx Legally Blind, Hx Macular Degeneration, Hx Vision Problem, Hx Deafness, Hx Hearing Aid, Hx Hearing Problem, Other Sensory Impairments Opthamlomology History: Denies: Hx Contacts or Glasses, Hx Eye Injury, Hx Eye Prosthesis, Hx Glaucoma , Hx Legally Blind, Hx Macular Degeneration, Hx Vision Problem, Other Sensory Impairments Neurological History: Denies: Hx Dementia, Hx Developmental Delay, Hx Headaches, Hx Migraine, Hx Nerve Disease, Hx Seizures, Hx Spinal Cord Injury, Hx Transient Ischemic Attacks (TIA), Other Neuro Impairments/Disorders - Surgical History Surgery Procedure, Year, and Place: hand Hx Anesthesia Reactions: No Infectious Disease History: No Infectious Disease History: Denies: Hx Clostridium Difficile, Hx Hepatitis, Hx Human Immunodeficiency Virus (HIV), Hx of Known/Suspected MRSA, Hx Shingles, Hx Tuberculosis, Hx Known/ Suspected VRE, Hx Known/Suspected VRSA, History Other Infectious Disease, Traveled Outside the [place] in Last 30 Days - Family History Known Family History: Positive: Hypertension, Diabetes - Social History Alcohol Use: Daily Alcohol Amount: 2-3 beers/week Hx Substance Use: No Substance Use Type: Reports: None Hx Tobacco Use: No Smoking Status (MU): Never Smoked Tobacco Review of Systems Negative: Fever Positive: Other - eye twitching and fluttering Positive: Other - bilateral hand shaking Neurological: Other - Decreased responsiveness All Other Systems Reviewed And Are Negative: Yes Physical Exam - Summary Physical Exam Summary: Appearance: The patient is well-nourished in no acute distress and in no acute pain. Skin: The skin is warm and dry and skin color reflects adequate perfusion. HEENT: ~The head is normocephalic and atraumatic. The pupils are equal and reactive. The conjunctivae are clear and without drainage. ~Nares are patent and without drainage. ~Mouth reveals moist mucous membranes and the throat is without erythema and exudate. ~The external ears are intact. The ear canals are patent and without drainage. The tympanic membranes are intact. Neck: the neck is supple with full range of motion and non-tender. There are no carotid bruits. ~There is no neck vein distension. Respiratory: Chest is non-tender. ~Lungs are clear to auscultation and breath sounds are symmetrical and equal. Cardiovascular: Heart is regular rate and rhythm. ~There is no murmur or rub auscultated. ~~There is no peripheral edema and pulses are symmetrical and equal. Abdomen: The abdomen is soft and non-tender. ~There are normal bowel sounds heard in all four quadrants and there is no organomegaly palpated. Musculoskeletal: There is no back tenderness noted. ~Extremities are non-tender with full range of motion. ~There is good capillary refill. ~There is no peripheral edema or calf tenderness elicited. Neurological: Patient is alert and oriented to person, place and time. ~The patient has symmetrical motor strength in all four extremities. ~Cranial nerves are grossly intact. Deep tendon reflexes are symmetrical and equal in all four extremities. Psychiatric: The patient has an appropriate affect and does not exhibit any anxiety or depression. Triage Information Reviewed: Yes Vital Signs On Initial Exam: Initial Vitals Temp Pulse Resp BP Pulse Ox 97.8 F 97 18 140/108 98 08/05/17 16:22 08/05/17 16:22 08/05/17 16:22 08/05/17 16:22 08/05/17 16:22 Vital Signs Reviewed: Yes Procedures - Lumbar Puncture Position: Sitting Aseptic Technique: Lidocaine Anesthesia Used: 2.0% Lido Spinal Needle Used: 22 Gauge Lumbar Puncture Note: opening pressure 33 cm of water. Head level was 29 cm. LP was easily obtained using aseptic technique on the first attempt. Clear CSF liquid obtained approximately 10 CC's. No complications, it was tolerated well. Diagnostics - Vital Signs Vital Signs Temp Pulse Resp BP Pulse Ox 08/05/17 16:22 97.8 F 97 18 140/108 98 - Laboratory Lab Results: Lab Results 08/05/17 08/05/17 08/05/17 Range/Units 17:15 17:15 17:15 WBC 8.4 (3.5-10.8) 10^3/ul RBC 4.78 (4.0-5.4) 10^6/ul Hgb 14.4 (14.0-18.0) g/dl Hct 41 L (42-52) % MCV 86 (80-94) fL MCH 30 (27-31) pg MCHC 35 (31-36) g/dl RDW 13 (10.5-15) % Plt Count 505 H D (150-450) 10^3/ul MPV 8 (7.4-10.4) um3 Neut % (Auto) 80.3 (38-83) % Lymph % (Auto) 11.6 L (25-47) % [place] % (Auto) 7.7 (1-9) % Eos % (Auto) 0.1 (0-6) % Baso % (Auto) 0.3 (0-2) % Absolute Neuts (auto) 6.7 (1.5-7.7) 10^3/ul Absolute Lymphs (auto) 1.0 (1.0-4.8) 10^3/ul Absolute Monos (auto) 0.6 (0-0.8) 10^3/ul Absolute Eos (auto) 0 (0-0.6) 10^3/ul Absolute Basos (auto) 0 (0-0.2) 10^3/ul Absolute Nucleated RBC 0 10^3/ul Nucleated RBC % 0 Sodium 134 (133-145) mmol/L Potassium 4.2 (3.5-5.0) mmol/L Chloride 102 (101-111) mmol/L Carbon Dioxide 24 (22-32) mmol/L Anion Gap 8 (2-11) mmol/L BUN 25 H (6-24) mg/dL Creatinine 0.94 (0.67-1.17) mg/dL Est GFR ( Amer) 119.6 (>60) Est GFR (Non-Af Amer) 93.0 (>60) BUN/Creatinine Ratio 26.6 H (8-20) Glucose 100 (70-100) mg/dL Calcium 9.2 (8.6-10.3) mg/dL Total Bilirubin 0.80 (0.2-1.0) mg/dL AST 43 H (13-39) U/L ALT 174 H (7-52) U/L Alkaline Phosphatase 115 H (34-104) U/L Ammonia TNP Total Protein 7.8 (6.4-8.9) g/dL Albumin 3.9 (3.2-5.2) g/dL Globulin 3.9 (2-4) g/dL Albumin/Globulin Ratio 1.0 (1-3) 08/05/17 Range/Units 18:05 WBC (3.5-10.8) 10^3/ul RBC (4.0-5.4) 10^6/ul Hgb (14.0-18.0) g/dl Hct (42-52) % MCV (80-94) fL MCH (27-31) pg MCHC (31-36) g/dl RDW (10.5-15) % Plt Count (150-450) 10^3/ul MPV (7.4-10.4) um3 Neut % (Auto) (38-83) % Lymph % (Auto) (25-47) % [place] % (Auto) (1-9) % Eos % (Auto) (0-6) % Baso % (Auto) (0-2) % Absolute Neuts (auto) (1.5-7.7) 10^3/ul Absolute Lymphs (auto) (1.0-4.8) 10^3/ul Absolute Monos (auto) (0-0.8) 10^3/ul Absolute Eos (auto) (0-0.6) 10^3/ul Absolute Basos (auto) (0-0.2) 10^3/ul Absolute Nucleated RBC 10^3/ul Nucleated RBC % Sodium (133-145) mmol/L Potassium (3.5-5.0) mmol/L Chloride (101-111) mmol/L Carbon Dioxide (22-32) mmol/L Anion Gap (2-11) mmol/L BUN (6-24) mg/dL Creatinine (0.67-1.17) mg/dL Est GFR ( Amer) (>60) Est GFR (Non-Af Amer) (>60) BUN/Creatinine Ratio (8-20) Glucose (70-100) mg/dL Calcium (8.6-10.3) mg/dL Total Bilirubin (0.2-1.0) mg/dL AST (13-39) U/L ALT (7-52) U/L Alkaline Phosphatase (34-104) U/L Ammonia 52 Total Protein (6.4-8.9) g/dL Albumin (3.2-5.2) g/dL Globulin (2-4) g/dL Albumin/Globulin Ratio (1-3) Result Diagrams: 08/05/17 17:15 08/05/17 17:15 Lab Statement: Any lab studies that have been ordered have been reviewed, and results considered in the medical decision making process. - CT Brain CT Interpretation Completed By: Radiologist - Negative unenhanced and contrast- enhanced CT of the head. ED physician has reviewed this radiology report and agrees. Course/Dx - Course Course Of Treatment: Mr. Whitaker has a complicated history of recent hospitalization for a presumed pneumonia. He has had several episodes today of staring with rhythmic eye and lip movements and was sent in with a concern for a brain abscess. CT was negative as were labs and we were obtaining an eeg when he had a generalized tonic-clonic seizure that lasted about a minute and from which he was post ictal. He was given ativan. Dr. Sewell was consulted and recommended loading him with fosphentoin and admission for further W/U. He had a second generalized seizure after the medications had been given and I performed an LP at that point. He is being admitted by the hospitalist service to the ICU. - Diagnoses Provider Diagnoses: Seizure - Critical Care Time Critical Care Time: 30-74 min Discharge - Discharge Plan Condition: Stable Disposition: ADMITTED TO [facility] The documentation as recorded by the Kyra alston Jason accurately reflects the service I personally performed and the decisions made by me, Guilherme Daugherty MD.
[2017-08-05 23:39] LABS: Body Fluid Total Cells Counted 2
[2017-08-06] MEDS: levETIRAcetam TAB* 500 MG PO SCH ×3 (00:21→20:55)
[2017-08-06] MEDS ORDERED: LORazepam INJ* 2 MG/ML 1 ML VIAL IV PRN (01:29)
[2017-08-06] MEDS: NS 0.9% 1000 ML* 1,000 ML IV SCH ×2 (01:47→20:57)
--- NOTE | 2017-08-06 03:06 | HP ---
H&P (Free Text) History and Physical: PCP: Layne Meneses MD Date/Time: 08/05/2017 2115 CC: seizure HPI: Mr Whitaker is a 31YO male [place] [facility] [place] severe sepsis 2nd CAP requiring mechanical ventilation for acute hypoxic respiratory failure from -08/04/2017. After discharge he was doing well until today around 1315 when his family witnessed him have 3 episodes of flickering eyelids and inattention lasting a few short seconds, but each longer than the last prompting calling his on-call provider who recommended ED evaluation. [place] drive [place] [facility] had no issues. However, he had an episode witnessed in triage, followed by 2 more upon placement into ED room 4 and then deteriorated into a grand mal seizure lasting ~1minute. He received 2mg IV lorazepam and 1500mg of IV phosphenytoin. Jacky Sewell MD neurology epileptologist was consulted and advised starting 750mg levetiracetam PO. During my evaluation, Mr Whitaker suddenly developed twitching of his L face with jerky EOM and an inability to respond verbally. With effort, he could shake his head yes when asked and breath deeply and slowly. After ~40seconds another dose of 2mg IV lorazepam was administered bringing the seizure to an end within 60s. During this episode there was no telemetry or monitor indicators to indicate his condition. As such, I want him on 1:1 monitoring to detect any further activity. Dr Sewell was apprised of this and requested a phenytoin level be drawn with the goal of 10-20. It was 17. She advised 1g levetiracetam IV for any further episodes and reported his EEG to be normal. While in the ED, Frederick Whitaker critical care who managed his septic shock & respiratory failure presented recommending use of steroids for suspected inflammatory etiology. This was discussed with Dr Sewell who preferred to hold steroids, obtain an LP to further r/o an infectious etiology including an opening pressure and a total of 10-15cc CSF in case additional testing is needed. LP request was relayed to Cecil Daugherty MD ED who agreed to perform. Regarding the opening pressure, Dr Daugherty performed an upright LP reporting the top of the head to be 29cm and the CSF column to be 33cm. The only CSF abnormality was of an elevated protein at 61. Steroids may be revisited in AM. MRI of the brain W gadolinium will need to be obtained. However, he received a contrast enhanced CT of the brain tonight. I discussed the wait time required between the CT brain W an MRI brain W with Kaya Atkins MD radiology who was uncertain, but agreed to further research in the AM and call Mr Julianne's ICU nurse tomorrow with an answer. PMedHx recent severe sepsis w/ acute respiratory failure requiring mechanical ventilation for CAP Ambulatory Orders Albuterol HFA INHALER* [Ventolin HFA Inhaler*] 2 puff INH Q4H PRN #1 mdi Guaifenesin-Codeine [Cheratussin AC 100-10 mg/5Ml] 5 ml PO Q4H PRN #90 ml MDD 30 ml 07/23/17 Cefdinir cap (NF) [Cefdinir 300 MG cap (NF)] 300 mg PO BID #10 cap 08/04/17 predniSONE TAB* [Deltasone TAB*] 5 mg PO DAILY #5 tab 08/04/17 traZODone TAB* [Desyrel TAB*] 100 mg PO BEDTIME PRN tab 08/04/17 Allergies Clarithromycin [From Biaxin] Allergy (Verified 07/23/17 10:19) Hives SocHx: no tobacco, mild alcohol, no recreational drugs; lives with his who is 6 months ; 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 [employer]; full code status FamHx: negative for seizure disorder ROS: as above, otherwise reviewed and all were negative vitals: Vital Signs Temp 37.2 C 08/05/17 23:07 Pulse 99 08/06/17 03:00 Resp 14 08/06/17 03:00 BP 117/75 08/06/17 03:00 Pulse Ox 95 08/06/17 03:00 Intake & Output 08/05/17 08/05/17 08/06/17 11:59 23:59 11:59 Intake Total 80 Balance 80 Weight 83.915 kg 74.435 kg Intake: IV Fluids 80 Constitutional: NAD, normally developed, well-nourished white male HEENM: atraumatic; sclera/conjunctiva: anicteric/clear; EOMI/PERRLA; hearing: clinically intact; oropharynx: clear, mucosa moist Neck: soft tissue: no tenderness or nuchal rigidity; thyroid: normal Pulmonary: clear to auscultation bilaterally, good aeration, no accessory muscle use CV: RR/RR, normal S1S2, no carotid bruit, no jugular venous distention, 2+ B DP/ PT, no edema Abdominal: soft, non-distended, non-tender, no rebound/guarding/rigidity, normoactive bowel sounds, no hepatosplenomegaly or masses, no costovertebral angle tenderness Musculoskeletal: general: grossly intact; gait: stable Integumental: normal appearance and texture of exposed skin Neurological cranial nerves III/IV/: symmetric light reflex, EOMI/PERRLA VII: intact facial symmetry VIII: hearing clinically intact IX/X: symmetric palatal motion, no dysarthria XII: midline tongue protrusion, normal voice articulation motor: grossly non-focal Psychiatric orientation: AA&O to PPS affect: calm mood: cooperative eye contact: good content: reliable responses: timely insight: good Testing: Lab Results 08/05/17 08/05/17 08/05/17 Range/Units 17:15 17:15 17:15 WBC 8.4 (3.5-10.8) 10^3/ul RBC 4.78 (4.0-5.4) 10^6/ul Hgb 14.4 (14.0-18.0) g/dl Hct 41 L (42-52) % MCV 86 (80-94) fL MCH 30 (27-31) pg MCHC 35 (31-36) g/dl RDW 13 (10.5-15) % Plt Count 505 H D (150-450) 10^3/ul MPV 8 (7.4-10.4) um3 Neut % (Auto) 80.3 (38-83) % Lymph % (Auto) 11.6 L (25-47) % Trigg % (Auto) 7.7 (1-9) % Eos % (Auto) 0.1 (0-6) % Baso % (Auto) 0.3 (0-2) % Absolute Neuts (auto) 6.7 (1.5-7.7) 10^3/ul Absolute Lymphs (auto) 1.0 (1.0-4.8) 10^3/ul Absolute Monos (auto) 0.6 (0-0.8) 10^3/ul Absolute Eos (auto) 0 (0-0.6) 10^3/ul Absolute Basos (auto) 0 (0-0.2) 10^3/ul Absolute Nucleated RBC 0 10^3/ul Nucleated RBC % 0 Sodium 134 (133-145) mmol/L Potassium 4.2 (3.5-5.0) mmol/L Chloride 102 (101-111) mmol/L Carbon Dioxide 24 (22-32) mmol/L Anion Gap 8 (2-11) mmol/L BUN 25 H (6-24) mg/dL Creatinine 0.94 (0.67-1.17) mg/dL Est GFR ( Amer) 119.6 (>60) Est GFR (Non-Af Amer) 93.0 (>60) BUN/Creatinine Ratio 26.6 H (8-20) Glucose 100 (70-100) mg/dL Calcium 9.2 (8.6-10.3) mg/dL Total Bilirubin 0.80 (0.2-1.0) mg/dL AST 43 H (13-39) U/L ALT 174 H (7-52) U/L Alkaline Phosphatase 115 H (34-104) U/L Ammonia TNP Total Protein 7.8 (6.4-8.9) g/dL Albumin 3.9 (3.2-5.2) g/dL Globulin 3.9 (2-4) g/dL Albumin/Globulin Ratio 1.0 (1-3) Fluid Source Fluid Volume mL Fluid Color Fluid Appearance Fluid WBC /mcL Fluid RBC /mcL Fluid Tot Cell Count Fluid Lymphocytes % Fluid Monocytes % Fluid Cell Count Rvw By CSF Cell Count Tube # CSF Glucose (40-70) mg/dL CSF Total Protein (15-45) mg/dL Phenytoin (10-20) mcg/mL 08/05/17 08/05/17 08/05/17 Range/Units 18:05 22:30 22:30 WBC (3.5-10.8) 10^3/ul RBC (4.0-5.4) 10^6/ul Hgb (14.0-18.0) g/dl Hct (42-52) % MCV (80-94) fL MCH (27-31) pg MCHC (31-36) g/dl RDW (10.5-15) % Plt Count (150-450) 10^3/ul MPV (7.4-10.4) um3 Neut % (Auto) (38-83) % Lymph % (Auto) (25-47) % Trigg % (Auto) (1-9) % Eos % (Auto) (0-6) % Baso % (Auto) (0-2) % Absolute Neuts (auto) (1.5-7.7) 10^3/ul Absolute Lymphs (auto) (1.0-4.8) 10^3/ul Absolute Monos (auto) (0-0.8) 10^3/ul Absolute Eos (auto) (0-0.6) 10^3/ul Absolute Basos (auto) (0-0.2) 10^3/ul Absolute Nucleated RBC 10^3/ul Nucleated RBC % Sodium (133-145) mmol/L Potassium (3.5-5.0) mmol/L Chloride (101-111) mmol/L Carbon Dioxide (22-32) mmol/L Anion Gap (2-11) mmol/L BUN (6-24) mg/dL Creatinine (0.67-1.17) mg/dL Est GFR ( Amer) (>60) Est GFR (Non-Af Amer) (>60) BUN/Creatinine Ratio (8-20) Glucose (70-100) mg/dL Calcium (8.6-10.3) mg/dL Total Bilirubin (0.2-1.0) mg/dL AST (13-39) U/L ALT (7-52) U/L Alkaline Phosphatase (34-104) U/L Ammonia 52 Total Protein (6.4-8.9) g/dL Albumin (3.2-5.2) g/dL Globulin (2-4) g/dL Albumin/Globulin Ratio (1-3) Fluid Source Cerebral spinal Fluid Volume 3.0 mL Fluid Color Colorless Fluid Appearance Clear Fluid WBC 1 /mcL Fluid RBC 0 /mcL Fluid Tot Cell Count 2 Fluid Lymphocytes 1 % Fluid Monocytes 1 % Fluid Cell Count Rvw By Pending CSF Cell Count Tube # Tube #4 CSF Glucose 65 (40-70) mg/dL CSF Total Protein 61 H (15-45) mg/dL Phenytoin (10-20) mcg/mL 08/06/17 Range/Units 00:18 WBC (3.5-10.8) 10^3/ul RBC (4.0-5.4) 10^6/ul Hgb (14.0-18.0) g/dl Hct (42-52) % MCV (80-94) fL MCH (27-31) pg MCHC (31-36) g/dl RDW (10.5-15) % Plt Count (150-450) 10^3/ul MPV (7.4-10.4) um3 Neut % (Auto) (38-83) % Lymph % (Auto) (25-47) % Trigg % (Auto) (1-9) % Eos % (Auto) (0-6) % Baso % (Auto) (0-2) % Absolute Neuts (auto) (1.5-7.7) 10^3/ul Absolute Lymphs (auto) (1.0-4.8) 10^3/ul Absolute Monos (auto) (0-0.8) 10^3/ul Absolute Eos (auto) (0-0.6) 10^3/ul Absolute Basos (auto) (0-0.2) 10^3/ul Absolute Nucleated RBC 10^3/ul Nucleated RBC % Sodium (133-145) mmol/L Potassium (3.5-5.0) mmol/L Chloride (101-111) mmol/L Carbon Dioxide (22-32) mmol/L Anion Gap (2-11) mmol/L BUN (6-24) mg/dL Creatinine (0.67-1.17) mg/dL Est GFR ( Amer) (>60) Est GFR (Non-Af Amer) (>60) BUN/Creatinine Ratio (8-20) Glucose (70-100) mg/dL Calcium (8.6-10.3) mg/dL Total Bilirubin (0.2-1.0) mg/dL AST (13-39) U/L ALT (7-52) U/L Alkaline Phosphatase (34-104) U/L Ammonia Total Protein (6.4-8.9) g/dL Albumin (3.2-5.2) g/dL Globulin (2-4) g/dL Albumin/Globulin Ratio (1-3) Fluid Source Fluid Volume mL Fluid Color Fluid Appearance Fluid WBC /mcL Fluid RBC /mcL Fluid Tot Cell Count Fluid Lymphocytes % Fluid Monocytes % Fluid Cell Count Rvw By CSF Cell Count Tube # CSF Glucose (40-70) mg/dL CSF Total Protein (15-45) mg/dL Phenytoin 17.1 (10-20) mcg/mL CT brain WO, personally reviewed: IMPRESSION: Negative unenhanced and contrast- enhanced CT of the head. Impression: 31M recently discharged after intubation for acute hypoxic respiratory failure 2nd CAP w/ severe sepsis presents now with new onset seizures DIAGNOSIS & PLAN Primary new onset seizures : multiple etiologies for lowered seizure threshold : recent sleep deprivation : recent severe illness : exposure to multiple new medicinal agents : possible cerebral inflammatory process : poor PO intake recently : ICU monitoring : loaded w/ 1500mg IV phosphenytoin : PRN lorazepam : will give levetiracetam 1g IV for further witnessed activity : levetirecetam 750mg PO BID : seizure precautions : supplemental oxygen : MRI brain W once cleared by radiology from recent CT brain W : Jacky Sewell MD neurology/epileptologist : supportive care Secondary recent severe sepsis 2nd CAP requiring mechanical ventilation : continue PO cefdinir Admission Rational: observation for new onset seizures DVTp: SCDs, no anticoagulation 2nd LP Code Status: full HCP:
--- NOTE | 2017-08-06 04:29 | EEG ---
ELECTROENCEPHALOGRAPHY: DATE OF STUDY: 08/05/17 LOCATION: The patient is in the emergency department. ORDERING PHYSICIAN: Grey Daugherty MD HISTORY: This is a 31-year-old man who had a witnessed generalized tonic- clonic seizure about 30 minutes prior to this recording. He was recently hospitalized in the ICU for 12 days with severe pneumonia, requiring intubation and sedation. He was brought to the emergency department tonight with recurrent episodes of twitching in his face and staring of spells. He would also have difficulty with speech during these events. In the emergency room, he had a generalized tonic- clonic seizure, which lasted less than a minute. He was given 2 mg of Ativan and recovered well within 10 minutes to the point at which he could converse and is acting appropriately. EEG is requested to evaluate for epileptiform abnormalities. MEDICATIONS: 1. Ativan 2 mg IV prior to the recording. 2. Prednisone. 3. Antibiotic of which the name is not known. DESCRIPTION OF PROCEDURE: The waking background showed appropriate organization with clearly defined the anterior to posterior voltage and frequency gradients. There was a well-defined posterior dominant rhythm of 9 Hz , which was symmetrical and showed normal reactivity. Anteriorly, there is an expected pattern of lower voltage, irregular, mixed faster frequencies. There is excess beta activity present primarily in the frontocentral regions, consistent with medication effect. Photic stimulation and hyperventilation were not performed. Attenuation of the occipital rhythm accompanied drowsiness. The sleep background was appropriately organized with well developed sleep spindles and vertex waves. The sleep transients showed appropriate morphology. For the most part, they were bilaterally synchronous and symmetric, but on 1 or 2 occasions there was some asymmetry noted in the vertex and sleep spindle complexes where they were not well seen over the right frontocentral region. Throughout the recording, there were no epileptiform discharges or paroxysmal features. IMPRESSION: This is an essentially normal waking and sleep EEG. There were few isolated instances during sleep where the sleep architecture was not well seen over the right frontocentral region as described above. The clinical significance of this is uncertain, but could indicate some intermittent neuronal dysfunction underlying this region. There is also beta activity present frontocentrally which is consistent with administration of benzodiazepines. There are no epileptiform discharges. [id number]/[facility] #: [id number] [facility]
[2017-08-06 05:54] LABS: Hematocrit 35 % (42-52); Mean Corpuscular HGB Conc 35 g/dl (31-36); Mean Corpuscular Hemoglobin 30 pg (27-31); Mean Corpuscular Volume 86 fL (80-94); Mean Platelet Volume 8 um3 (7.4-10.4); Red Blood Count 4.04 10^6/ul (4.0-5.4); Red Cell Distribution Width 13 % (10.5-15); White Blood Count 6.4 10^3/ul (3.5-10.8)
[2017-08-06 06:05] LABS: BUN/Creatinine Ratio 24.7 (8-20); Calcium 7.8 mg/dL (8.6-10.3); Direct Bilirubin 0.2 mg/dL (0.03-0.18); EGFR African American 150.6 (>60); EGFR Non-African American 117.1 (>60); Indirect Bilirubin 0.5 mg/dL (0.3-1.0); Potassium 3.6 mmol/L (3.5-5.0); Total Bilirubin 0.7 mg/dL (0.2-1.0)
[2017-08-06] MEDS: Omeprazole CAP* 20 MG PO SCH (06:10)
[2017-08-06] MEDS ORDERED: levETIRAcetam TAB* 500 MG PO SCH (09:00)
[2017-08-06] MEDS: CEFDINIR 300 MG PO SCH ×2 (09:10→20:55)
[2017-08-06] MEDS: Docusate CAP* 100 MG PO SCH ×2 (09:12→21:31)
[2017-08-06] MEDS: Acetaminophen TAB* 325 MG PO PRN (17:17)
--- NOTE | 2017-08-06 19:29 | CONS ---
NEUROLOGY CONSULTATION: DATE OF CONSULT: 08/06/17 LOCATION: The patient is in the ICU. REQUESTING PHYSICIAN: Ayush Navarro MD. REASON FOR CONSULT: New onset seizures. HISTORY OF PRESENT ILLNESS: Trever Whitaker is a 31-year-old man who is otherwise healthy, but was just recently discharged on 08/04/17 from the hospital after a nearly 2-week stay for pneumonia. He required an ICU stay with ventilation secondary to severe pneumonia, which was presumed to be community-acquired, but no organism was isolated. According to the discharge summary, he had a relatively severe consolidation of his right lung and also involvement of his left lung. On his initial presentation at that time, he had 3 to 4 days of nonproductive cough as well as diarrhea, loss of appetite, general malaise, and confusion. He had been started on azithromycin as an outpatient and then, the following day, came into the emergency room on 07/24/17. He was hyponatremic to 116 at that time and also had elevated CPKs and leukopenia. He was treated with a variety of antibiotics and was able to be extubated finally on 08/02/17. He had several investigations including viral testing as well as bacterial testing and his testing for Legionella and Strep in the urine was negative. His sputum did isolate Staph aureus, but in discussing with Dr. Whitaker, he did not feel this was a causative organism. He was also tested for HIV, which was negative. He was discharged on 08/04/17 and says that he had a poor night of sleep that night, then in the afternoon yesterday he began to have episodes where he would be aware, but unable to speak and his family describes bilateral eyebrow twitching and darting eye and head movements, [id number]. He would be somewhat unresponsive during this time and he would feel anxious. Afterward he would appear to be more anxious with agitated movements, but telling his family that he was okay and was not feeling anxious, even though outwardly he was displaying anxiety. The family reports that these initially were relatively short in duration, lasting less than 30 seconds, but were becoming increasingly prolonged and they called Dr. Meneses's office after the third episode and was advised by Dr. Webber to present to the emergency room. In all, yesterday he had somewhere around 8 or 9 of these events and one of them secondarily generalized into a tonic-clonic seizure. Subsequent to that, he had another focal event as described above and received 2 mg of Ativan IV and has not had another episode since then. In the emergency department, when Dr. Daugherty initially saw him, and after his generalized seizure, he received another 2 mg of IV Ativan and was loaded with 1500 mg of fosphenytoin. He was then started on levetiracetam 750 mg twice daily. In terms of risk factors of seizures, his mother reports that he was somewhat in that he was 3 weeks early and had lanugo, but he was an 8+ pound baby. He met all milestones early. He had no learning difficulties (he says just a lack of interest). There is no history of febrile seizures or a family history of epilepsy. 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 He may have had some minor head trauma in high school when wrestling, but otherwise no major concussions with loss of consciousness. He does mention that he smokes synthetic marijuana and just prior to his presentation with this pneumonia, he had gotten a different product from [place] and he is now concerned that this may have been contaminated with something because his urine toxicology screen on presentation at the end of June was positive for opiates as well as cannabinoids, but he denies any history of opiate use. He was on sedating medications when intubated in the ICU , but in review of those medications they most recently included fentanyl and Precedex, neither of which should cause withdrawal seizures. He was discharged on cefdinir as well as prednisone and was concerned that the prednisone may have caused the onset of these seizures as he was very anxious about taking it. PAST MEDICAL HISTORY: No significant medical problems prior to this ICU admission for pneumonia. HOME MEDICATIONS: Prior to his ICU admission, he was not on any regular medications, but he was discharged on: 1. Cefdinir 300 mg twice daily. 2. As well as prednisone 5 mg daily. 3. He was also prescribed trazodone 100 mg at bedtime as needed, but his reports they did not pick this up from the pharmacy and he would not have taken it otherwise anyway. 4. He also had guaifenesin and albuterol available as needed, but they do not report that he has been taking that. ALLERGIES: No known drug allergies. FAMILY HISTORY: There is no known history of epilepsy in the family. There is a family history of heart disease in his parents, with his father having a coronary bypass surgery and his mother a mitral valve replacement. SOCIAL HISTORY: He is and lives with his who is 6 months' . He drinks occasionally and socially, not more than 2 drinks in a sitting. He does not use tobacco, but does use synthetic marijuana recreationally as described above. 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 REVIEW OF SYSTEMS: He denies any headache today. He feels pretty clear mentally, but when I initially questioned him, he said he was still feeling a little bit cloudy. This may have been because he had just woken up. He denies any cardiac or significant respiratory symptoms at this point. He had lost some weight as a result of his ICU stay. PHYSICAL EXAMINATION: Vital Signs: Temperature 99, blood pressure 127/89, heart rate is in the 90s to 100s, and his oxygen saturation is 97% on room air. On general examination, he is a pleasant, well-developed young man, in no acute distress. His heart is in a regular rate and rhythm, though slightly tachycardic, with no obvious murmurs. His lungs were clear. He had no skin rashes or other lesions. There is no joint swelling or erythema. On neurologic examination, he is fully awake, alert, and oriented. His speech is clear, without dysarthria or aphasia. On cranial nerves exam, pupils are equal, round, and reactive from 4 to 2 mm bilaterally. Versions are full without nystagmus. Quintana are full to confrontation with no extinction to double simultaneous stimulation. Facial sensation and musculature is full and symmetric. Hearing is intact to finger rub. The palate elevates symmetrically and the tongue is midline. Shoulder shrug is full and symmetric. On motor examination, he has normal bulk and tone in the upper and lower extremities. Strength is full both proximally and distally. There is no pronator drift. There is no tremor or asterixis or other abnormal movements. Sensation is intact to light touch and temperature in the upper and lower extremities. Reflexes are 2+ throughout with downgoing toes. Qonfgy-iq-urty and heel-to- ritchie are intact without ataxia. I did not stand him up or ambulate him at this time. DIAGNOSTIC STUDIES/LAB DATA: His white blood cell count is normal at 6.4, hematocrit slightly low at 35, hemoglobin 12, and platelet count this morning was 380, though yesterday was 505 on his admission. Monocyte percentage is 11.3 %. Chemistry panel shows a normal sodium, potassium, and glucose. His renal function is normal. His calcium was a little low at 7.8 this morning. Direct bilirubin was 0.2 with normal indirect in total. His liver functions are improving as compared to the elevations that were noted during his recent hospitalization. His ALT is just slightly elevated, still at 114, but AST and alkaline phosphatase were normal this morning. Ammonia is normal at 52. During his last admission, he was tested for flu A and B which was negative. HIV was negative. He underwent a lumbar puncture yesterday, which showed only one white blood cell, no rbc's, and normal glucose is 65. His total protein was elevated at 61, with the upper limit of normal being 45. Gram-stain was negative and culture thus far is negative. He underwent a brain CT with and without contrast which I personally reviewed and appears to be a normal study. There is no evidence of abnormal contrast enhancement. He underwent EEG after his generalized tonic-clonic seizure, which the report is available in the record, but essentially was a normal waking and sleep study. IMPRESSION: Trever Whitaker is a 31-year-old right-handed man with no significant past medical history, who was recently admitted for a severe pneumonia associated with hyponatremia and leukopenia and severe sepsis, who presented the day after his discharge with a new onset of seizures. His description of these events with the association of these focal events with the inability to speak raises the question whether these were arising from the left hemisphere, though again his EEG appeared normal. Given that these seizures sound focal with secondary generalization, I do not think that withdrawal from any of the medications that he was taking or medication-induced seizures is the most likely possibility. He does have slightly elevated protein in his CSF, so we will obtain some additional studies including IgG index as well as oligoclonal bands in the CSF and we will try to add on Lyme testing as well as testing for [place]ass[place] virus. In addition, he will need to undergo MRI of the brain with and without contrast which can be done tomorrow, but not before then given the contrast load that he received with his CT of the brain yesterday. He should remain on the levetiracetam 750 mg twice daily at this point and seizure precautions should remain in place, but I think it is fine for him to have a diet and ambulate around the unit. He is going to be observed again overnight here in the ICU and we will anticipate him getting his MRI scan tomorrow. I hope to be able to give him some additional guidance after this in terms of his potential recurrence risk. I did discuss driving restrictions with him at this time being the 12-month restriction on driving by [facility], but sometimes able to drive after 6 months if no seizures. Thank you for this consultation. I will follow up on the patient tomorrow. [id number]/[facility] #: [id number] DERECK
[2017-08-07] MEDS: Omeprazole CAP* 20 MG PO SCH (05:24)
[2017-08-07 06:15] LABS: Hematocrit 38 % (42-52); Hemoglobin 13.1 g/dl (14.0-18.0); Mean Corpuscular HGB Conc 34 g/dl (31-36); Mean Corpuscular Hemoglobin 30 pg (27-31); Mean Corpuscular Volume 86 fL (80-94); Mean Platelet Volume 8 um3 (7.4-10.4); Red Blood Count 4.43 10^6/ul (4.0-5.4); Red Cell Distribution Width 13 % (10.5-15); White Blood Count 4.6 10^3/ul (3.5-10.8)
[2017-08-07 06:25] LABS: Albumin 3.5 g/dL (3.2-5.2); BUN/Creatinine Ratio 16.3 (8-20); C Reactive Protein 8.01 mg/L (< 5.00); Calcium 9.3 mg/dL (8.6-10.3); EGFR African American 122.6 (>60); EGFR Non-African American 95.3 (>60); Globulin 3.3 g/dL (2-4); Potassium 3.9 mmol/L (3.5-5.0); Total Bilirubin 0.8 mg/dL (0.2-1.0); Total Protein 6.8 g/dL (6.4-8.9)
[2017-08-07] MEDS: CEFDINIR 300 MG PO SCH ×2 (08:29→21:50)
[2017-08-07] MEDS: Docusate CAP* 100 MG PO SCH ×2 (08:29→21:51)
--- NOTE | 2017-08-07 08:29 | PN ---
Subjective - Subjective Reason for Note: Progress Note History: I have reviewed his presentation with the patient, his parents, the electronic medical record (H and P, Dr. Sewell's consultation note). I discharged him following resolution of his pneumonia. As an outpatient I started him on cefdinir and tapered his prednisone. He has had a number of complex partial seizures, with generalization witnessed in the ED. Since being in the ICU he has had no further seizure activity. Today, he has a mild headache from his lumbar puncture. He has no other focal neurological symptoms. He is no longer coughing, bringing up sputum. He has had no fevers or sweats. In private he revealed to me he has used marijuana on a daily basis for years and this was abruptly stopped on admission. He is concerned at loss of erectile function since his hospitalization. 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 Hepatitis, acute (Chronic) B17.9 Current Medications: Current Medications Acetaminophen (Tylenol Tab*) 650 mg PO Q6H PRN PRN Reason: FEVER/PAIN Last Admin: 08/06/17 17:17 Dose: 650 mg Cefdinir (Cefdinir Cap (Nf)) 300 mg PO BID [facility] Last Admin: 08/06/17 20:55 Dose: 300 mg Docusate Sodium (Colace Cap*) 200 mg PO BID [facility] Last Admin: 08/06/17 21:31 Dose: Not Given Sodium Chloride (Ns 0.9% 1000 Ml*) 1,000 mls @ 50 mls/hr IV PER RATE [facility] Last Admin: 08/06/17 20:57 Dose: 50 mls/hr Levetiracetam (Keppra Tab*) 750 mg PO BID [facility] Last Admin: 08/06/17 20:55 Dose: 750 mg Lorazepam (Ativan Inj*) 2 mg IV ONCE PRN PRN Reason: seizure Melatonin (Melatonin (Nf)) 3 mg PO BEDTIME PRN; Protocol PRN Reason: Sleep Omeprazole (Prilosec Cap*) 20 mg PO DAILY@0600 [facility] Last Admin: 08/07/17 05:24 Dose: 20 mg Ondansetron HCl (Zofran Inj*) 4 mg IV Q6H PRN PRN Reason: NAUSEA - Review of Systems Constitutional Symptoms: No: Fever, Night Sweats Dermatology: Skin Lesions: No Pulmonary: Negative: Cough, Sputum, Respiratory Distress, Home Oxygen Cardiology: Negative: Chest Pain, Palpitations, Swelling of Ankles Gastroenterology: Negative: Abdominal Pain, Nausea, Vomiting, Change in Bowel Habits Genital - Urinary: Negative: Dysuria Neurology: Positive: Headache, Hx of Seizures Negative: Change in Vision, Diplopia, Dizziness, Change in Balancing, Change in Coordination, Change in Memory, Change in Speech, Change in Sphincter Function, Hx of Stroke\TIA Home Medications: Home Medications Medication Instructions Recorded Confirmed Type Albuterol HFA INHALER* [Ventolin 2 puff INH Q4H PRN #1 mdi 07/23/17 07/24/17 Rx HFA Inhaler*] Guaifenesin-Codeine [Cheratussin 5 ml PO Q4H PRN #90 ml MDD 30 ml 07/23/1707/24 Rx AC 100-10 mg/5Ml] Cefdinir cap (NF) [Cefdinir 300 MG 300 mg PO BID #10 cap 08/04/17 Rx cap (NF)] predniSONE TAB* [Deltasone TAB*] 5 mg PO DAILY #5 tab 08/04/17 Rx traZODone TAB* [Desyrel TAB*] 100 mg PO BEDTIME PRN tab 08/04/17 Rx Allergies: Allergies Allergy/AdvReac Type Severity Reaction Status Date / Time Clarithromycin [From Biaxin] Allergy Hives Verified 07/23/17 10:19 Objective - Vital Signs Vital Signs: Vital Signs 08/06/17 08/06/17 08/06/17 13:00 14:00 15:00 Temperature Pulse Rate 91 107 95 Respiratory 16 17 20 Rate Blood Pressure 126/83 123/86 126/88 (mmHg) O2 Sat by Pulse 94 97 95 Oximetry 08/06/17 08/06/17 08/06/17 15:40 16:00 17:00 Temperature 99.4 F Pulse Rate 97 Respiratory 18 20 Rate Blood Pressure 126/82 (mmHg) O2 Sat by Pulse 95 Oximetry 08/06/17 08/06/17 08/06/17 18:00 19:00 20:00 Temperature 99.0 F Pulse Rate 96 93 91 Respiratory 17 20 23 Rate Blood Pressure 101/73 129/95 126/90 (mmHg) O2 Sat by Pulse 97 96 97 Oximetry 08/06/17 08/06/17 08/06/17 21:00 22:00 22:12 Temperature Pulse Rate 86 82 82 Respiratory 15 17 14 Rate Blood Pressure 125/87 122/78 (mmHg) O2 Sat by Pulse 96 96 97 Oximetry 08/06/17 08/06/17 08/07/17 22:32 23:00 00:00 Temperature 98.8 F Pulse Rate 83 87 80 Respiratory 20 17 15 Rate Blood Pressure 116/81 (mmHg) O2 Sat by Pulse 94 96 95 Oximetry 08/07/17 08/07/17 08/07/17 00:01 01:00 02:00 Temperature Pulse Rate 80 78 101 Respiratory 16 17 13 Rate Blood Pressure 111/80 (mmHg) O2 Sat by Pulse 95 95 96 Oximetry 08/07/17 08/07/17 08/07/17 03:00 04:00 04:01 Temperature 99.0 F Pulse Rate 72 74 76 Respiratory 14 16 15 Rate Blood Pressure 109/76 (mmHg) O2 Sat by Pulse 96 95 95 Oximetry 08/07/17 08/07/17 08/07/17 05:00 05:06 05:54 Temperature Pulse Rate 78 Respiratory 17 13 Rate Blood Pressure (mmHg) O2 Sat by Pulse 96 95 Oximetry 08/07/17 08/07/17 08/07/17 06:00 07:32 08:01 Temperature 100 F 98.8 F Pulse Rate 85 Respiratory 14 Rate Blood Pressure 123/92 (mmHg) O2 Sat by Pulse 97 Oximetry - Intake and Output Intake and Output: Intake & Output 08/04/17 08/05/17 08/06/17 08/07/17 11:59 11:59 11:59 11:59 Intake Total 1970 Output Total 1300 Balance 670 Weight 165 lb 4.8 oz Intake: IV Fluids 1210 NS (0.9%) 1210 Oral 760 Output: Urine 1300 Other: Estimated Void Medium # Bowel Movements 1 Estimated Stool Amount Medium # Voids 1 ADLs: Meal Record Start: 08/05/17 22: 54 Freq: ,13,18 Status: Active Protocol: Document 08/06/17 08:59 [id number] (Rec: 08/06/17 08:59 [id number] ICU-M05) Document 08/06/17 13:00 [id number] (Rec: 08/06/17 17:00 [id number] ICU-C07) Document 08/06/17 18:00 [id number] (Rec: 08/06/17 20:16 [id number] ICU-C07) Intake and Output Start: 08/05/17 22: 54 Freq: 06,14,22 Status: Active Protocol: Document 08/06/17 05:46 [id number] (Rec: 08/06/17 05:48 [id number] ICU-M05) Document 08/06/17 13:49 [id number] (Rec: 08/06/17 13:50 [id number] ICU-C07) Document 08/06/17 22:00 [id number] (Rec: 08/06/17 22:32 [id number] ICU-C07) Document 08/07/17 05:54 [id number] (Rec: 08/07/17 05:55 [id number] ICU-C07) Results - Results Lab Results: Laboratory Results - last 24 hr 08/07/17 08/07/17 08/07/17 05:40 05:40 05:40 WBC 4.6 RBC 4.43 Hgb 13.1 L Hct 38 L MCV 86 MCH 30 MCHC 34 RDW 13 Plt Count 327 MPV 8 Neut % (Auto) 61.6 Lymph % (Auto) 27.2 [place] % (Auto) 10.5 H Eos % (Auto) 0.2 Baso % (Auto) 0.5 Absolute Neuts (auto) 2.8 Absolute Lymphs (auto) 1.2 Absolute Monos (auto) 0.5 Absolute Eos (auto) 0 Absolute Basos (auto) 0 Absolute Nucleated RBC 0.01 Nucleated RBC % 0.2 INR (Anticoag Therapy) 1.18 H APTT 28.4 Sodium 135 Potassium 3.9 Chloride 104 Carbon Dioxide 24 Anion Gap 7 BUN 15 Creatinine 0.92 Est GFR ( Amer) 122.6 Est GFR (Non-Af Amer) 95.3 BUN/Creatinine Ratio 16.3 Glucose 86 Calcium 9.3 Total Bilirubin 0.80 AST 26 ALT 106 H Alkaline Phosphatase 102 C-Reactive Protein 8.01 H Total Protein 6.8 Albumin 3.5 Globulin 3.3 Albumin/Globulin Ratio 1.1 Radiology Results: Patient Name: MAURICE MCKEON Medical Record#: [id number] Ordering Physician: Guilherme Daugherty MD Acct.#: [id number] : 1985 Age: 31 Sex: M Location: EMERGENCY DEPARTMENT Exam Date: 08/05/17 1639 ADM Status: REG ER Order Information: CT BRAIN W/WO Accession Number: [id number] CPT: 12385 Indication: Seizure. Comparison: No relevant prior exams available on the [facility] PACS for comparison. Technique: Pre and postcontrast CT brain. 75 mL Omnipaque 300 contrast administered IV. Report: The sulci, ventricles, and basal cisterns are normal for age. Shaver matter white matter differentiation is preserved without evidence for edema. No intra or extra axial hemorrhage, mass, or fluid collection detected. No abnormal intra or extra-axial enhancement evident. Unremarkable visualized orbital contents. Unremarkable calvarium and skull base. Unremarkable scalp. The visualized paranasal sinuses and mastoid air spaces are clear. IMPRESSION: Negative unenhanced and contrast-enhanced CT of the head. <Electronically signed by J Luis Atkins MD in OV> 08/05/171743 Dictated By: J Luis Atkins MD Dictated Date/Time: 08/05/171743 Transcribed Date/Time: 08/05/171738 Copy to: CC:Leroy Meneses MD; Guilherme Daugherty MD Imaging - [facility] Imaging - [place] [facility] [address] [address] ph ([phone]) ph ([phone]) ph ([phone]) 1 of 1 Other Results/Reports: Electroencephalogram Report Patient: MAURICE MCKEON /Age: 04 1985 31 Medical Record#: [id number] Admission Date: 08/05/17 Provider: Cecilia Sewell MD ELECTROENCEPHALOGRAPHY: DATE OF STUDY: 08/05/17 LOCATION: The patient is in the emergency department. ORDERING PHYSICIAN: Grey Daugherty MD HISTORY: This is a 31-year-old man who had a witnessed generalized tonic- clonic seizure about 30 minutes prior to this recording. He was recently hospitalized in the ICU for 12 days with severe pneumonia, requiring intubation and sedation. He was brought to the emergency department tonight with recurrent episodes of twitching in his face and staring of spells. He would also have difficulty with speech during these events. In the emergency room, he had a generalized tonic- clonic seizure, which lasted less than a minute. He was given 2 mg of Ativan and recovered well within 10 minutes to the point at which he could converse and is acting appropriately. EEG is requested to evaluate for epileptiform abnormalities. MEDICATIONS: 1. Ativan 2 mg IV prior to the recording. 2. Prednisone. 3. Antibiotic of which the name is not known. DESCRIPTION OF PROCEDURE: The waking background showed appropriate organization with clearly defined the anterior to posterior voltage and frequency gradients. There was a well-defined posterior dominant rhythm of 9 Hz, which was symmetrical and showed normal reactivity. Anteriorly, there is an expected pattern of lower voltage, irregular, mixed faster frequencies. There is excess beta activity present primarily in the frontocentral regions, consistent with medication effect. Photic stimulation and hyperventilation were not performed. Attenuation of the occipital rhythm accompanied drowsiness. The sleep background was appropriately organized with well developed sleep spindles and vertex waves. The sleep transients showed appropriate morphology. For the most part, they were bilaterally synchronous and symmetric, but on 1 or 2 occasions there was some asymmetry noted in the vertex and sleep spindle complexes where they were not well seen over the right frontocentral region. Throughout the recording, there were no epileptiform discharges or paroxysmal features. IMPRESSION: This is an essentially normal waking and sleep EEG. There were few isolated instances during sleep where the sleep architecture was not well seen over the right frontocentral region as described above. The clinical significance of this is uncertain, but could indicate some intermittent neuronal dysfunction underlying this region. There is also beta activity present frontocentrally which is consistent with administration of benzodiazepines. There are no epileptiform discharges. Electroencephalogram Report MAURICE MCKEON [id number] 08/05/17 [id number]/[facility] #: [id number] <Electronically signed by Cecilia Sewell MD> 08/06/1708 Cecilia Sewell MD Dictated Date/Time: 08/05/172141 Transcribed Date/Time 08/05/172231 Copy to: CC: Cecilia Sewell MD 2 of 2 1 of 2 Assessment - Problem List Assessment: Patient Problems Complex partial seizure evolving to generalized seizure (Acute) Hypogonadism in male (Acute) Marijuana dependence (Acute) Community acquired pneumonia (Chronic) Consolidation lung (Chronic) Hepatitis, acute (Chronic) Anterior T wave inversion (Chronic) Plan: Complex partial seizure evolving to generalized seizure (Acute) He has had new onset seizures. Dr. Sewell is consulting and I defer to her on the management. I note he has a history of daily marijuana use. I reviewed cefdinir - no mention of seizures in pubmed or on the datasheet. I counseled him about driving Hypogonadism in male (Acute) I explained to the patient that low LHRH, LH and testosterone are part of the acute phase reaction with sepsis. This will recover spontaneously Marijuana dependence (Acute) I note that marijuana is used to treat seizures ( CBD), there are some case reports of individuals with seizure disorders who have increased frequency of seizures with withdrawal of marijuana. Dr. Sewell can comment on the use of CBD residential to reduce this patient's seizure threshold Community acquired pneumonia (Chronic) This is resolving. I will maintain his cefdinir until we have ruled out microabscesses in the brain with MRI Consolidation lung (Chronic) Resolving - I couldn't hear crackles on his lung bases today Hepatitis, acute (Chronic) This is mostly resolved Anterior T wave inversion (Chronic) secondary diagnosis. I spent 20 mins counseling/answer questions for the patient and his parents. Dr. Sewell will suggest when he is ready for safe discharge after anti-seizure medications have been started and he has been seizure-free.
[2017-08-07] MEDS: levETIRAcetam TAB* 500 MG PO SCH ×2 (08:30→21:49)
[2017-08-07] MEDS: Acetaminophen TAB* 325 MG PO PRN ×2 (09:56→22:02)
[2017-08-07] MEDS ORDERED: Gadoteridol* (CONTRAST) 279.3 MG/ML 10 ML IV ONE (20:57)
--- NOTE | 2017-08-07 21:39 | RAD ---
HISTORY: New onset seizure, sepsis COMPARISONS: Head CT dated October 06, 2016 TECHNIQUE: The following sequences were obtained of the head: Sagittal T1-weighted images, axial T2-weighted images, axial FLAIR images, axial susceptibility weighted images, axial T1-weighted images, coronal T1, T2 and FLAIR images through the mesial temporal lobes. Additionally, axial diffusion-weighted images were obtained with calculated apparent diffusion coefficients. Additionally, sagittal and axial T1 weighted images with thin section coronal T1-weighted images through the mesial temporal lobes were obtained after contrast enhancement with a gadolinium-based intravenous contrast agent. FINDINGS: HEMORRHAGE/INFARCT: There is no hemorrhage or acute infarct. MASSES/SHIFT: There is no mass or shift. EXTRA-AXIAL SPACES/MENINGES: There are no extra-axial fluid collections. SULCI AND VENTRICLES: The sulci and ventricles are normal in size and position for the patient's stated age. CEREBRUM: There are no focal brain parenchymal abnormalities. The mesial temporal lobes are symmetric in size, architecture, and signal intensity. The collateral white matter bundles are symmetric. The mamillary bodies and temporal horns of the lateral ventricles are symmetric in size. There is no appreciable cortical dysplasia or heterotopia. BRAINSTEM: There are no focal parenchymal abnormalities. CEREBELLUM: There are no focal parenchymal abnormalities. The cerebellar tonsils are normal in size and position. SELLA: The sella is normal. PINEAL: The pineal region is clear. CP ANGLE/TEMPORAL BONES: The labyrinthine structures are grossly normal. VESSELS: Normal flow-voids are noted within the visualized vertebral vasculature. DIFFUSION ABNORMALITIES: There are no diffusion abnormalities. PARANASAL SINUSES/MASTOIDS: The paranasal sinuses are clear. There are small bilateral mastoid effusions. ORBITS: The orbits are unremarkable. BONES AND SOFT TISSUE: No bone or soft tissue abnormalities are noted. OTHER: There is no abnormal enhancement. IMPRESSION: 1. THE MESIAL TEMPORAL LOBES ARE SYMMETRIC. THERE IS NO ABNORMAL ENHANCEMENT. THERE IS NO APPRECIABLE CORTICAL DYSPLASIA OR HETEROTOPIA. 2. SMALL BILATERAL MASTOID EFFUSIONS.
[2017-08-08] MEDS: Omeprazole CAP* 20 MG PO SCH (05:55)
--- NOTE | 2017-08-08 08:25 | PN ---
Subjective - Subjective Reason for Note: Discharge Note History: DISCHARGE SUMMARY His LP headache has abated. Last night he had a 20 second witnessed complex partial seizure that sounds similar to previous episodes. This did not generalized. He is not coughing, has no dyspnea and no sputum. He has had no fevers/rigors or chills. 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 Hepatitis, acute (Chronic) B17.9 Current Medications: Current Medications Acetaminophen (Tylenol Tab*) 650 mg PO Q6H PRN PRN Reason: FEVER/PAIN Last Admin: 08/07/17 22:02 Dose: 650 mg Cefdinir (Cefdinir Cap (Nf)) 300 mg PO BID [facility] Last Admin: 08/07/17 21:50 Dose: 300 mg Docusate Sodium (Colace Cap*) 200 mg PO BID [facility] Last Admin: 08/07/17 21:51 Dose: Not Given Levetiracetam (Keppra Tab*) 750 mg PO BID [facility] Last Admin: 08/07/17 21:49 Dose: 750 mg Lorazepam (Ativan Inj*) 2 mg IV ONCE PRN PRN Reason: seizure Last Admin: 08/07/17 23:19 Dose: 2 mg Melatonin (Melatonin (Nf)) 3 mg PO BEDTIME PRN; Protocol PRN Reason: Sleep Omeprazole (Prilosec Cap*) 20 mg PO DAILY@0600 [facility] Last Admin: 08/08/17 05:55 Dose: 20 mg Home Medications: Home Medications Medication Instructions Recorded Confirmed Type Albuterol HFA INHALER* [Ventolin 2 puff INH Q4H PRN #1 mdi 07/23/17 08/07/17 Rx HFA Inhaler*] Cefdinir cap (NF) [Cefdinir 300 MG 300 mg PO BID #10 cap 08/04/17 08/07/17 Rx cap (NF)] predniSONE TAB* [Deltasone TAB*] 5 mg PO DAILY #5 tab 08/04/17 08/07/17 Rx traZODone TAB* [Desyrel TAB*] 100 mg PO BEDTIME PRN tab 08/04/17 08/07/17 Rx Allergies: Allergies Allergy/AdvReac Type Severity Reaction Status Date / Time Clarithromycin [From Biaxin] Allergy Hives Verified 07/23/17 10:19 Objective - Vital Signs Vital Signs: Vital Signs 08/07/17 08/07/17 08/07/17 09:00 10:00 11:00 Temperature Pulse Rate 93 89 85 Respiratory 16 17 17 Rate Blood Pressure 135/89 128/93 142/95 (mmHg) O2 Sat by Pulse 96 94 98 Oximetry 08/07/17 08/07/17 08/07/17 11:47 12:00 13:00 Temperature 98.9 F Pulse Rate 81 95 Respiratory 17 23 Rate Blood Pressure 123/90 133/102 (mmHg) O2 Sat by Pulse 97 97 Oximetry 08/07/17 08/07/17 08/07/17 14:00 15:00 16:00 Temperature 98.1 F Pulse Rate 90 89 83 Respiratory 16 17 17 Rate Blood Pressure 124/79 131/90 128/90 (mmHg) O2 Sat by Pulse 96 95 95 Oximetry 08/07/17 08/07/17 08/07/17 17:00 18:00 18:01 Temperature Pulse Rate 87 103 90 Respiratory 23 20 18 Rate Blood Pressure 135/96 129/99 (mmHg) O2 Sat by Pulse 97 94 98 Oximetry 08/07/17 08/07/17 08/07/17 19:00 20:00 21:00 Temperature 99.3 F Pulse Rate 85 88 Respiratory 16 15 17 Rate Blood Pressure 137/89 129/96 (mmHg) O2 Sat by Pulse 97 97 Oximetry 08/07/17 08/07/17 08/07/17 21:41 21:44 22:00 Temperature Pulse Rate 88 84 Respiratory 20 18 21 Rate Blood Pressure (mmHg) O2 Sat by Pulse 96 99 Oximetry 08/07/17 08/07/17 08/07/17 23:00 23:16 23:19 Temperature Pulse Rate 82 84 Respiratory 17 13 15 Rate Blood Pressure 124/100 (mmHg) O2 Sat by Pulse 98 99 Oximetry 08/08/17 08/08/17 08/08/17 00:00 00:01 01:00 Temperature 99 F Pulse Rate 87 85 87 Respiratory 16 16 17 Rate Blood Pressure 124/92 109/73 (mmHg) O2 Sat by Pulse 93 97 95 Oximetry 08/08/17 08/08/17 08/08/17 02:00 02:01 03:00 Temperature Pulse Rate 89 86 79 Respiratory 17 17 17 Rate Blood Pressure 108/79 112/81 (mmHg) O2 Sat by Pulse 94 95 97 Oximetry 08/08/17 08/08/17 08/08/17 03:01 04:00 04:18 Temperature 99 F Pulse Rate 86 70 Respiratory 17 16 Rate Blood Pressure 121/80 (mmHg) O2 Sat by Pulse 96 95 97 Oximetry 08/08/17 08/08/17 08/08/17 05:00 05:21 06:00 Temperature Pulse Rate 106 80 Respiratory 23 18 15 Rate Blood Pressure 105/89 127/79 (mmHg) O2 Sat by Pulse 97 93 Oximetry 08/08/17 08/08/17 08/08/17 06:01 07:00 08:00 Temperature 99.2 F Pulse Rate 80 78 Respiratory 15 15 Rate Blood Pressure 119/80 (mmHg) O2 Sat by Pulse 95 96 Oximetry - Intake and Output Intake and Output: Intake & Output 08/05/17 08/06/17 08/07/17 08/08/17 11:59 11:59 11:59 11:59 Intake Total 300 2234 1400 Output Total 650 1300 300 Balance -744 122 2384 Weight 167 lb 165 lb 4.8 oz 165 lb 3.184 oz Intake: IV Fluids 200 1354 NS (0.9%) 200 1354 Oral 020 308 9787 Output: Urine 650 1300 300 Other: Estimated Void Medium Medium Date of Last Bowel 08/07/17 Movement # Bowel Movements 1 2 Estimated Stool Amount Medium Medium # Voids 1 1 2 ADLs: Meal Record Start: 08/05/17 22: 54 Freq: ,,18 Status: Active Protocol: Document 08/06/17 08:59 [id number] (Rec: 08/06/17 08:59 [id number] ICU-M05) Document 08/06/17 13:00 [id number] (Rec: 08/06/17 17:00 [id number] ICU-C07) Document 08/06/17 18:00 [id number] (Rec: 08/06/17 20:16 [id number] ICU-C07) Document 08/07/17 09:00 [id number] (Rec: 08/07/17 09:49 [id number] ICU-C20) Document 08/07/17 13:00 [id number] (Rec: 08/07/17 14:18 ICU-C07) Document 08/07/17 18:00 (Rec: 08/07/17 18:41 ICU-C07) Intake and Output Start: 08/05/17 22: 54 Freq: 06,14,22 Status: Active Protocol: Document 08/06/17 05:46 [id number] (Rec: 08/06/17 05:48 [id number] ICU-M05) Document 08/06/17 13:49 [id number] (Rec: 08/06/17 13:50 [id number] ICU-C07) Document 08/06/17 22:00 [id number] (Rec: 08/06/17 22:32 [id number] ICU-C07) Document 08/07/17 05:54 [id number] (Rec: 08/07/17 05:55 [id number] ICU-C07) Document 08/07/17 14:00 (Rec: 08/07/17 14:30 ICU-C07) Document 08/07/17 22:00 [id number] (Rec: 08/08/17 02:31 [id number] ICU-C07) Document 08/08/17 05:21 [id number] (Rec: 08/08/17 05:21 [id number] ICU-C07) - Physical Exam General: No Cyanosis, No Anemia, No Jaundice, No Clubbing Skin: Normal: Rash Lungs and Chest: Yes: Chest Expansion Full, Chest Expansion Symetrica, Percussion Note Resonant, Vessicular Breath Sounds. No: Crackles, Wheezes Heart Rate and Rhythm: Regular JVP: Not Elevated Additional Cardiovascular: Yes: Normal Heart Sounds. No: Heart Murmur, Pedal Edema Abdominal Exam: Yes: Soft, Bowel Sounds Present. No: Distention, Abdominal Mass , Abdominal Tenderness - Extremities Cranial Nerves II-XII Intact: Yes Limbs: Normal Power, Normal Tone, Normal Coordination - finger-nose/rapid alt. movts - Neuro Orientation: A/O x3 Psychiatric: Anxious Speech: Normal Assessment - Problem List Assessment: Patient Problems Complex partial seizure evolving to generalized seizure (Acute) Hypogonadism in male (Acute) Marijuana dependence (Acute) Community acquired pneumonia (Chronic) Consolidation lung (Chronic) Hepatitis, acute (Chronic) Anterior T wave inversion (Chronic) Plan: Complex partial seizure evolving to generalized seizure (Acute) He had a breakthrough seizure yesterday evening. I discussed this with Dr. Sewell. She recommends increasing the dose keppra to 1,000 mg bid. She will come in to see him. She will discuss discharge plans - she is prepared to titrate this as an outpatient. Hypogonadism in male (Acute) discussed Marijuana dependence (Acute) discussed Community acquired pneumonia (Chronic) recovering Consolidation lung (Chronic) No longer has physical signs Hepatitis, acute (Chronic) This is mostly recovered He will have a consultation with Dr. Sewell today and decide upon whether he wants to go home. I will write a contingent discharge.
[2017-08-08] MEDS ORDERED: levETIRAcetam TAB* 500 MG PO SCH (08:28)
[2017-08-08] MEDS: CEFDINIR 300 MG PO SCH (08:32)
[2017-08-08] MEDS: Docusate CAP* 100 MG PO SCH (08:34)
[2017-08-08] MEDS: Acetaminophen TAB* 325 MG PO PRN (09:51)
--- NOTE | 2017-08-08 10:31 | PN ---
NEUROLOGY PROGRESS NOTE: DATE OF FOLLOWUP: 08/07/17 HISTORY: No additional seizure is reported. Trever reports that he has some resolving headache and s houlder pain, which he is attributing to the lumbar puncture. His feels that his mental status is more back to his normal baseline. They had several questions for me and I spent 15 to 20 minutes with them answering all questions to the best of my ability. His MRI scan is scheduled for this even ing at 8 p.m. MEDICATIONS: Reviewed and included: 1. Cefdinir 300 mg twice daily. 2. Keppra 750 mg twice daily. 3. Melatonin 3 mg at bedtime. His steroid has been discontinued. PHYSICAL EXAMINATION: Vital Signs: Temperature 98.1, blood pressure 128/90, oxygen saturation 95% o n room air, heart rate 82. The patient was not formally re-examined today. On general observation, he was fully awake, alert, a nd oriented. His speech was fluent without dysarthria or aphasia. He moved all extremities equally. His face is symmetric. DATA: His CBC and CMP from today were reviewed and overall are unremarkable aside from a continuousl y improving ALT level of 106, AST of 26, and alkaline phosphatase of 102. His CRP is slightly elevat ed at 8.01. Further CSF studies as delineated in my consult note are pending. IMPRESSION: Trever Whitaker is a 31-year-old man, who experienced new onset focal seizures with a singl e seizure with secondary generalization in the setting of a recent admission for pneumonia and sepsis . He will undergo his MRI scan at [address] [facility]. We discussed things in his history, which could h ave potentially lowered his seizure threshold including sleep deprivation as well as stress. We did not specifically address the issue of the synthetic marijuana again, though Trever and I discussed bisi t yesterday. Specifically, I told them that while sleep deprivation and stress can certainly lower t he seizure threshold, I would not typically expect that alone to result in the type of presentation t hat he had with seizures. However, I told him that if his MRI scan is normal and his other CSF studie s come back unremarkable, then it seems that these seizures were most likely related to the episode o f sepsis that he experienced and my recommendation would be to continue treatment for 3 months with l evetiracetam and if he remains seizure-free, then re-assessing with an EEG prior to discussing weanin g the medication as an outpatient. If there are abnormalities noted on any of this testing, then thi s may obviously alter these recommendations. I told the patient that I would review the MRI scan antony munroe and would try to come by in the morning to discuss with him prior to his hopeful discharge gerry branham. We again discussed the driving restriction in [facility] and he will need to refrai n from driving for at least 6 months. He asked me about alcohol and I told him that he should limit it to occasional intake and ideally 1 drink, but certainly no more than 2 drinks in any 24-hour perio d. [id number]/[facility] #: [id number]
[2017-08-08 13:43] LABS: Albumin 3950 mg/dL; CSF Albumin 31.7 mg/dL (<=27.0); CSF IgG/Albumin Ratio 0.12 (<=0.21); CSF Immunoglobulin G Index 0.41 (<=0.85); Immunoglobulin G 1150 mg/dL (767 - 1590); Serum IgG/Albumin Ratio 0.29 (<=0.40)
[2017-08-08 14:04] VITALS: BP 129/92
[2017-08-08 15:27] LABS: HSV 1 PCR, CSF Negative (Negative); HSV 2 PCR, CSF Negative (Negative)
[2017-08-08 16:31] LABS: CSF Oligoclonal Bands 7 bands; Oligoclonal Proteins Interpret 1 bands (<4); Serum Oligoclonal Bands 6 bands
[2017-08-08 20:57] LABS: B. burgdorferi PCR Negative (Negative); B. garinii/B. afzellii PCR Negative (Negative)
--- NOTE | 2017-08-09 01:19 | PN ---
CC: Dr. Meneses * PROGRESS NOTE: DATE OF FOLLOWUP: 08/08/17 - ROOM #ICU-12 HISTORY: The patient unfortunately experienced another seizure last night around 11:00 p.m. This was after his MRI scan and he was just getting back into bed after using the bathroom. He reports that he felt similar to the way he did with his previous events where he had some anxiety and could feel that his face was twitching. He also recalls being unable to respond. This is also documented as per the patient's recollection in the nursing notes. He was given Ativan. Dr. Meneses called me this morning about this and I recommended increasing levetiracetam to 1000 mg twice a day. I had a long discussion with his parents and him about the course moving forward, as well as his testing results thus far. MEDICATIONS: Reviewed and include: 1. Cefdinir 300 mg twice daily. 2. Keppra 1000 mg twice daily, of which he received the new dose at 8:30 this morning. PHYSICAL EXAMINATION: Vital Signs: Temperature 99.2, at 8:00 a.m., blood pressure 141/90, heart rate 92, oxygen saturation 96% on room air. Again, he was not formally re-examined but was fully awake and oriented in his bed. His speech is fluent without dysarthria or aphasia. His face is symmetric with full strength. His spontaneous versions are full. He moves all extremities equally with full strength. LABORATORY DATA: His MRI scan of the brain with and without contrast was personally reviewed and shows no focal parenchymal abnormalities and no evidence of abnormal contrast enhancement. There were mild bilateral mastoid effusions noted. IMPRESSION: Trever Whitaker is a 31-year-old man with new onset seizures in the setting of a recent admission for pneumonia associated with sepsis. Unfortunately, he has experienced another breakthrough focal seizure more than 24 hours after his previous seizures. As a result, we have increased the dose of levetiracetam to 1000 mg twice daily. I discussed with Trever and his family that if he continues to have breakthrough seizures we can continue to increase this medication to maximum tolerability, but may need to consider switching to a different agent and I would consider an agent with sodium channel blockade since his seizures were quieted down with load of fosphenytoin that he received a couple of days ago. We discussed that his MRI scan is normal, but there are still some CSF studies pending including IgG index and oligoclonal bands, as well as some viral testing. At this point, there is no clear structural etiology for these seizures. I continue to think that this is occurring in the context of his recent sepsis, which lowered the seizure threshold as well as the sleep deprivation but he appears to potentially have perhaps an underlying pre-disposition to focal seizures which is being unmasked in this setting. I am not able to answer at this time whether he is going to require lifelong anti- seizure treatment, but I am still hopeful that we will be able to get these under control with 1 or 2 medications. We discussed seizure precautions as well as first aid for generalized tonic-clonic seizures. I advised that he does not need to be brought back to the emergency room for single seizures where he is recovering normally at home. He was advised that he should call my office, [phone], for guidance if this occurs. I think he could go home later today if he and his family are comfortable with that at this point. He could be kept another 24 hours but even if he is seizure free at that point it obviously does not guarantee that he will not have another breakthrough seizure at some point in the future at home. I left it up to him and his family whether he wants to be discharged today or potentially tomorrow. We again reviewed the driving restrictions in [facility], and I encouraged to report himself to the DMV on the appropriate form. I would like to see him back in my office in about 4 weeks but encouraged him to call sooner if there are any problems with the medication or further breakthrough seizures. If he is still here tomorrow then I will see him again at that time. 45 minutes were spent in counseling and education regarding testing results, epilepsy, seizure precautions, potential future medication choices, driving restrictions, etc. [id number]/[facility] #: [id number]
== END 2017-08-08 14:30 | disposition home or self-care (01) | DRG 643 ==
LOC: ED 16:20 → ICU 21:26 → UNDOADMOB 21:26 → ICU 22:40 → OBSVTOIN 22:40 → INTOOBSV 08-06 12:12 → OBSVTOIN 08-06 12:12
PROVIDERS: ADMIT Hospitalist; ATTEND Internal Medicine
PROC: 009U3ZX Drainage of Spinal Canal, Percutaneous Approach, Diagnostic (ICD-10-PCS; principal; 2017-08-05)
DX: E29.1 Testicular hypofunction (principal); J18.8 Other pneumonia, unspecified organism; J18.1 Lobar pneumonia, unspecified organism; B17.9 Acute viral hepatitis, unspecified; F12.20 Cannabis dependence, uncomplicated; G97.1 Other reaction to spinal and lumbar puncture; G47.30 Sleep apnea, unspecified; Z82.49 Family history of ischemic heart disease and other diseases of the circulatory system; Z88.1 Allergy status to other antibiotic agents
CPT/HCPCS: 36415; 70470; 70553; 80048; 80053; 80076; 80185; 82140; 82784; 82945; 83916; 84157; 85025; 85610; 85730; 86140; 86618; 87070; 87205; 87529; 89051; 94760; 94762; 95819; A9270-GY; A9579; J2060; Q2009; Q9967